=== PATIENT | female | born 1945 ===

== ENCOUNTER 2017-04-05 10:53 | Inpatient (IN) | payer MEDICARE ==
[2017-04-05] MEDS ORDERED: Insulin LISPRO* 1 UNITS UNIT SUBCUT ONE ×2 (13:10→20:50)
[2017-04-05] MEDS ORDERED: NS 0.9% 500 ML BAG* 500 ML IV ONE (13:10)
[2017-04-05] MEDS ORDERED: NS 0.9% 1000 ML* 1,000 ML IV ONE (13:13)
[2017-04-05] MEDS ORDERED: NS 0.9% 1000 ML* 1,000 ML IV SCH (13:15)
[2017-04-05] MEDS ORDERED: Azithromycin IV(*) 500 MG in NS 0.9% 250 ML* 250 ML IVPB ONE (14:03)
[2017-04-05 14:18] LABS: Troponin I 0.52 ng/mL (<0.04)
[2017-04-05 14:27] LABS: Urine Bacteria 1+ (Absent); Urine Bilirubin Negative (Negative); Urine Glucose 1+(50 mg/dL) (Negative); Urine Nitrite Negative (Negative)
[2017-04-05] MEDS ORDERED: Enoxaparin(*) 30 MG/0.3 ML SYR SUBCUT SCH (15:00)
--- NOTE | 2017-04-05 15:26 | PN ---
Hospitalist Progress Note . Hospitalist Attending Co-Note: I reviewed the following case with MEHRDAD Nicholas and agree with the Assessment and Plan of care. In brief, Ms. Romero is a 72 yo F with HTN, HL, uncontrolled DM now p/w SOB, weakness, cloudy urine, subjective fevers and hyperglycemia (glu > 500). Feel this AM at home, taken by EMS to [place], found to have grossly ABNL UA. Also, AF with RVR (new). Abnormal pulmonary exam... Transferred from to [facility] ABX: - Cipro 600 - Ceftriaxone 2 gm Also got diltiazem 5 mg IV x 1. Also received 9 units IV R-insulin. At [facility]: - Dilt gtt...better rate, less sx. - Additional 15 units insulin and increased basal dose of insulin (home= 70/30 * 50 units BID + SSI high dose) - Added Azithromycin to Abx regimen. - Troponin noted to be elevated > NSTEMI threshold (presumably supply-demand mismatch). Plan: NSTEMI: - rate related - consider stress test outpatient - trend troponins. - EKG daily Pulmonary / Pneumonia?: - Gin/CTX UTI: - CTX to cover AF with RVR: - Rate contorlled with PO dilt - ? duration - TTE ordered - SQ lovenox 1 mg/kg BID DM: - add on A1C - adjust insulin regimen; increase TDD - high dose SSI - nutritional consult FEN: - 2 L NS bolus after 1.5 L at [facility] - 125 ml/hr maintenance
[2017-04-05 15:31] LABS: C Reactive Protein 394.86 mg/L (< 5.00)
[2017-04-05] MEDS: Insulin GLARGINE(*) 1 UNITS UNIT SUBCUT SCH (15:56)
[2017-04-05] MEDS ORDERED: NS 0.9% 1000 ML* 2,000 ML IV ONE (16:00)
[2017-04-05] MEDS ORDERED: Perflutren Lipid Microsphere* 3 ML VIAL ONE (16:26)
[2017-04-05] MEDS ORDERED: Insulin LISPRO* 1 UNITS UNIT SUBCUT SCH (16:30)
--- NOTE | 2017-04-05 17:11 | ECHO ---
Patient: LENNY MONTAÑO [facility] Rec#: [id number] : 1945 Date: 04/05/2017 Age: 72y Height: 152.4 cm / 60.0 in Weight: 86.2 kg / 190.0 lbs Sex: F BSA: 1.83 Room#: ICU 7 Admit Date#: 04/05/2017 Type: Inpatient Referring: Juanita Balbuena NP Reading: Jackson Camejo MD Consumer Banker: Georgie Bustillos RN RDCS CC: Bassam Jay DO Transthoracic Echocardiogram Indication: NSTEMI, SOB BP: 91/55 HR: 93 Rhythm: NSR with PACs Findings History: HTN, DM, HLD, obesity, thyroid nodules Left Ventricle: The left ventricular chamber size is normal. Mild to moderate concentric left ventricular hypertrophy is observed. There is global hypokinesis of the left ventricle with minor regional variation. There is moderate to severely decreased left ventricular systolic function. The estimated ejection fraction is 25-30%. The assessment of diastolic function is non-diagnostic. The patient was unable to perform a Valsalva maneuver. Left Atrium: The left atrium is mildly dilated. Right Ventricle: The right ventricular cavity size is normal. The right ventricular global systolic function is mildly to moderately reduced. Right Atrium: The right atrial cavity size is normal. Aortic Valve: The aortic valve is trileaflet. The aortic valve leaflets are moderately thickened. There is aortic annular calcification. There is no evidence of aortic regurgitation. There is mild aortic stenosis. The mean gradient of the aortic valve is 4.5 mmHg. The peak instantaneous gradient of the aortic valve is 7.8 mmHg. The aortic valve area, by peak velocities, is calculated at 1.9 cm2. The aortic valve area, by VTI's, is calculated at 1.8 cm2. Mitral Valve: There is mitral annular calcification. The mitral valve leaflets are mildly thickened. There is moderate mitral regurgitation. There is no evidence of mitral stenosis. Tricuspid Valve: The tricuspid valve leaflets are normal. There is trace to mild tricuspid regurgitation. There is evidence that pulmonary hypertension may be underestimated. Pulmonic Valve: The pulmonic valve appears normal. There is a trace pulmonic regurgitation. There is no pulmonic stenosis. Pericardium: There is no significant pericardial effusion. A pericardial fat pad is visualized. Aorta: The ascending aorta is not well visualized. The aortic arch is not well visualized. There is no dilation of the aortic root. Pulmonary Artery: The main pulmonary artery appears normal. Venous: The inferior vena cava is dilated. There is a greater than 50% respiratory change in the inferior vena cava dimension. Contrast: Definity was used to optimize study. A total of 5 ml of Definity was given. Summary: There was not any prior study for comparison. Conclusions There is global hypokinesis of the left ventricle with minor regional variation. There is moderate to severely decreased left ventricular systolic function. The estimated ejection fraction is 25-30%. The assessment of diastolic function is non-diagnostic. The right ventricular global systolic function is mildly to moderately reduced. The aortic valve leaflets are moderately thickened. There is mild aortic stenosis. There is moderate mitral regurgitation. There is no evidence of mitral stenosis. There is trace to mild tricuspid regurgitation. There is evidence that pulmonary hypertension may be underestimated. There is no significant pericardial effusion. Measurements Name Value Normal Range RVDdMajor (2D) 3.8 cm (2.2 - 4.4) RAd ISD 4CH 4.7 cm (3.4 - 4.9) RA (A4C)W 4 cm (2.9 - 4.6) IVSd (2D) 1.4 cm (0.6 - 1) LVPWd (2D) 1.2 cm (0.6 - 1) IVS:LVPW ratio (2D) 1.2 ratio - LVIDd (2D) 4.9 cm (3.6 - 5.4) LVIDs (2D) 3.6 cm - LV FS (2D) 27 % (25 - 45) Aortic Annulus 2.1 cm (1.4 - 2.6) Ao root diameter (2D) 2.7 cm (2.1 - 3.5) LA dimension (AP) 2D 4.5 cm (2.3 - 3.8) LAd ISD 4CH 4.8 cm (2.9 - 5.3) LA ISD 4CH W 4.7 cm (2.5 - 4.5) Name Value Normal Range LA ESV SP 4CH (A/L) 76 ml - LA ESV SP 2CH (A/L) 59 ml - LA ESV BP (A/L) 68 ml - LA ESV BP (A/L) index 37 ml/m2 - LA ESV SP 4CH (MOD) 64 ml - LA ESV SP 2CH (MOD) 57 ml - Name Value Normal Range MV E-wave Vmax 0.56 m/sec - MV deceleration time 197 msec - MV A-wave Vmax 0.65 m/sec - MV E:A ratio 0.87 ratio - LV septal e' Vmax 0.08 m/sec - LV lateral e' Vmax 0.09 m/sec - LV E:e' septal ratio 7 ratio - LV E:e' lateral ratio 6.2 ratio - Name Value Normal Range AV Vmax 1.4 m/sec - AV VTI 29.7 cm - AV peak gradient 7.8 mmHg - AV mean gradient 4.5 mmHg - LVOT diameter 2.1 cm - LVOT Vmax 0.76 m/sec - LVOT VTI 15.1 cm - LVOT peak gradient 2.3 mmHg - LVOT mean gradient 1.3 mmHg - DOI (VTI) 0.51 ratio - DOI (Vmax) 0.54 ratio - PRIYA (continuity Vmax) 1.9 cm2 - PRIYA (continuity VTI) 1.8 cm2 - Name Value Normal Range TR Vmax 2.5 m/sec - TR peak gradient 25 mmHg - RAP 8 mmHg - RVSP 33 mmHg - IVC diameter 2.14 cm - Name Value Normal Range PV Vmax 0.57 m/sec - PV peak gradient 1.3 mmHg -
[2017-04-05 17:34] LABS: FIO2 2
[2017-04-05 17:39] LABS: PCO2 Arterial 31 mmHg (35-45)
--- NOTE | 2017-04-05 18:00 | RAD ---
Indication: Acute kidney injury. Real-time sonography of the kidneys was performed. The right kidney measures 11.9 x 4.4 x 4.5 cm. A cyst is noted in the upper pole measuring 14 x 14 x 12 mm. The left kidney measures 11.1 x 4.5 x 4.2 cm. No hydronephrosis is noted. IMPRESSION: No hydronephrosis of either kidney is noted. Right renal cyst is noted.
--- NOTE | 2017-04-05 18:31 | RAD ---
Indication: CHF, pneumonia. Single frontal view of the chest performed at 1800 hours was reviewed. Comparison is made with previous exam dated April 05, 2017. Cardiomegaly is noted. Interstitial edema with peribronchial cuffing is noted consistent with mild vascular congestion. IMPRESSION: FINDINGS CONSISTENT WITH MILD VASCULAR CONGESTION.
[2017-04-05] MEDS ORDERED: Heparin VIAL(*) 5000 UNITS/ML VIAL (FIVE THOUSAND) IV SCH (19:00)
[2017-04-05 19:13] LABS: Total Iron Binding Capacity 235 mcg/dL (250-450); Transferrin 168 mg/dL (203-362)
[2017-04-05 19:29] LABS: Iron < 15 ug/dL (50-212)
--- NOTE | 2017-04-05 19:33 | PN ---
Hospitalist Progress Note . CENTRAL LINE NOTE HOSPITALIST PROCEDURE NOTE: CENTRAL LINE Discussed case at length with Shar Balbuena NP and MEHRDAD Alexander. Indication present for central line: multiple failed phlebotomy attempts / no PICC service / urgent need for multiple IV agents Discussed with patient, who agreed and consented based on risks & benefits explained. Labs reviewed (no coagulopathy noted). Materials collected and room set up Patient positioned and target site sterilized in the usual fashion with shoulders back and head down (reverse Trendelenburg position) Completed physician-led time out reviewing patient name, procedure, indications , laterality, goals, etc. Site anesthetized with 2% lidocaine in usual fashion Larger finder needle delivered deeper lidocaine and got drawback (flash) from L subclavian vein (characteristic deep red / venous color noted) Wire inserted by Seldinger technique. Opening cut and SQ tissue dilated with dilator. Triple lumen catheter (pre-flushed) inserted over wire with low pressure blood return noted in all ports. Each port flushed and needleless adaptors applied Line sutured in usual fashion and covered with tegaderm dressing. Stat CXR ordered to r/o pneumothorax and confirm proper line placement. No complications noted at the time of this note.
[2017-04-05 19:35] LABS: Ferritin 223.4 ng/mL (11-307)
[2017-04-05 19:39] LABS: Folate > 20.00 ng/mL (>3.99); Vitamin B12 > 1450 pg/mL (180-914)
[2017-04-05] MEDS: Heparin DRIP 25,000 UNITS(*) 25,000 UNITS/500 ML BAG IV SCH (20:06)
--- NOTE | 2017-04-05 20:06 | RAD ---
Indication: Line placement verification. Single frontal view of the chest performed at 1926 hours was reviewed. Comparison is made with previous exam dated April 05, 2017. No mediastinal shift is noted. Heart is of normal size and configuration. Lung moreno appear clear. Left-sided central catheter remains in place with the tip in the superior vena cava. No pneumothorax is noted. IMPRESSION: LEFT SUBCLAVIAN VEIN CATHETER IN THE SUPERIOR VENA CAVA. NO ACTIVE DISEASE IS NOTED. NO PNEUMOTHORAX IS NOTED.
--- NOTE | 2017-04-05 20:24 | HP ---
AMENDED REPORT NOW INCLUDES COSIGNER DESIGNATION - ESIGNED BEFORE ADJUSTMENT CC: Dr. Bassam Jay * HISTORY AND PHYSICAL: DATE OF ADMISSION: PRIMARY CARE PHYSICIAN: Dr. Bassam Jay. MY ATTENDING WHILE IN THE HOSPITAL: Dr. Miles Thakur* (DICTATED BY MEHRDAD MATTHEW) CHIEF COMPLAINT: The patient was found on the floor, unable to get up. HISTORY OF PRESENT ILLNESS: Ms. Romero is a 72-year-old female with a past medical history significant for uncontrolled diabetes, type 2; hypertension; hyperlipidemia, who presents as a direct admission from [facility] where she was taken by ambulance from her home after being found conscious but unable to get up. The patient states that she has been having weakness generally without any focality for about the past 5 to 6 days. The patient states this coincides with subjective fevers that she has been having, but denies any change in her urine, difficulty breathing, or chest pain. The patient states she has been dizzy for about 7 to 8 days as well. The patient states she has been having increased swelling in her legs for about the past month. The patient denies any history of palpitations. The patient was noted to have AFib with RVR while in the emergency room at [place]. The patient denies palpitation sensation at that time. The patient states that her blood sugars have been getting progressively higher for about 2 weeks after they were low down in the 70s. They reached their high a couple of days ago at about 500. The patient denies any recent changes in her diabetic medications. The patient states this got much worse in the past 2 days and she has been unable to drink very much or eat very much and has vomited twice. The patient denies any other changes. The patient has neuropathy, which is stable. The patient denies any increase or decrease in frequency or color of her urine. ADDITIONAL PAST MEDICAL HISTORY: Osteoarthritis, incontinence, depression. PAST SURGICAL HISTORY: Hip replacement in September of this year and knee replacement about 20 years ago. MEDICATIONS: 1. Omeprazole 20 mg p.o. daily. 2. Amlodipine 10 mg p.o. daily. 3. Lipitor 40 mg p.o. daily. 4. Meloxicam 15 mg p.o. daily. 5. Lisinopril 40 mg p.o. daily. 6. Insulin lispro protamine 75/25, 50 units b.i.d. 7. Gemfibrozil 600 mg p.o. daily. ALLERGIES: No known drug allergies. FAMILY HISTORY: The patient has a brother with a history of stroke and diabetes. The patient states that the whole rest of her family has diabetes including all of her siblings and both her parents and a couple of her grandparents. The patient denies any family history for cardiac disease or cancer. SOCIAL HISTORY: The patient states she has never smoked. Rarely drinks alcohol. Uses no illicit drugs. Lives with her , has 4 kids. Used to work in daycare. PHYSICAL EXAMINATION GENERAL: The patient is a 72-year-old female who appears her stated age, is sitting in moderate distress, having difficulty breathing on the bed in the Intensive Care Unit. VITAL SIGNS: Upon arrival to hospital, temperature 99.1; heart rate 119 when she arrived, 89 at the time of exam, respiratory rate 24; oxygen saturation 96% on 2 L nasal cannula; blood pressure is 72/59. HEENT: Head: Normocephalic, atraumatic. No sinus tenderness. Sclerae anicteric. Pharynx nonerythematous. Lips and mucosa are dry. NECK: Supple. No Lymphadenopathy. Tenderness to palpation over thyroid RESPIRATORY: Rhonchorous breath sounds heard in all lung moreno. Good air exchange bilaterally. Egophony negative. CARDIAC: Irregularly irregular rhythm. Rates between 80 and 100. No clicks, murmurs, gallops, or rubs. Radial pulses 2+ bilaterally. Posterior tibialis and dorsalis pedis pulses 2+ bilaterally. No edema. ABDOMEN: Bowel sounds hypoactive in all 4 quadrants. Nontender, nondistended, obese. No abdominal bruits heard. No hepatosplenomegaly palpated. Exam limited by body habitus. GENITOURINARY: CVA tenderness on right side. No suprapubic tenderness. NEURO: Cranial nerves II through XII intact. 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 Distal strength in the legs, 5/5 bilaterally. SKIN: Warm, pink, intact. DIAGNOSTIC STUDIES/LAB DATA: Lab results from [facility], white blood cell count 9.8, hemoglobin 10.8, hematocrit 31.4, platelets 80, 91% granulocytes , neutrophils 94%, 13 bands. PT/INR 9.6/10.4. Troponin 0.626. Creatinine 7.5 , BUN 83. Lactic acid 2.8. BNP 466. Urine from [facility], protein +3 , blood +2, leukocyte esterase +3, bacteria +4. Troponin repeat at [facility] down to 0.52. Repeat urine from [facility] consistent with urine at [place]. Glucose 400. Chest x-ray: Read as cardiomegaly with no acute cardiopulmonary disease. Cephalization of pulmonary vasculature noted upon review. IMPRESSION AND PLAN: The patient is a 72-year-old female with past medical history significant for diabetes, hypertension, and hyperlipidemia, who comes in with sepsis from urinary tract infection, or possible pneumonia, new onset Afib and uncontrolled diabetes. 1. Sepsis, Urinary tract infection. The patient received 600 mg of ciprofloxacin and 2 g of Rocephin at [facility]. We will discontinue ciprofloxacin and continue Rocephin 2 g q.24 hours. We will give 2 L of normal saline with maintenance fluids afterwards at 125 mL an hour. We will monitor lactic acid after bolus infusion is complete. We will hold lisinopril and amlodipine at this time due to hypotension. 2. Rhonchi, possible pneumonia. We will add on azithromycin 500 mg IV today and 250 mg daily to cover for community-acquired pneumonia. Ceftriaxone will also cover for this. We will also order CRP. 3. New-onset atrial fibrillation. The patient's rate is currently controlled. The patient received diltiazem drip protocol when she arrived and her pulse rate has not gone back above 100. Will start on heparin drip. The patient is not stable enough for transesophageal echocardiogram. The duration of the atrial fibrillation is unknown, so there is a significant risk for mural thrombus. 4. Diabetes. Gave the patient 15 units lispro insulin one time, now we will start on glargine 40 units subcutaneous q.12 hours and a high-dose sliding scale and we will reassess for control of blood sugars. 5. Hypertension. Hypertensive medications held until hypotension resolves. 6. Hyperlipidemia. We will continue home Lipitor and gemfibrozil. 7. Gastroesophageal reflux disease. Continue omeprazole home dose. 8. Deep vein thrombosis prophylaxis. Heparin Drip initiated. SCDs on while in bed 9. Fluids, electrolytes, and nutrition. Consistent carbohydrate diet. Fluids at 125ml/hr 10. Code status. Full code. Healthcare proxy is her , Enoch Romero. DISPOSITION: The patient is admitted to the ICU. TIME SPENT: Approximately 60 minutes was spent on this admission, half 30 minutes of which was spent obtaining history and physical from the patient. This case was discussed with my attending, Dr. Thakur; he is in agreement with this plan. MEHRDAD MATTHEW [id number]/CPS #: [id number] RUBI
[2017-04-05] MEDS ORDERED: Dextrose 50% Syringe 50 ML* 25 GM/50 ML SYRINGE IV PUSH PRN (20:27)
[2017-04-05] MEDS: Insulin LISPRO* 1 UNITS UNIT SUBCUT SCH (20:30)
--- NOTE | 2017-04-05 21:01 | PN ---
Progress Note - Progress Note Date of Service: 04/05/17 Note: Transthoracic Echocardiogram completed and reveals a EF of 25-30%. Patient had already received 3.5L of NS and repeat CXR reveals increased pulmonary congestion. Blood Pressures remain low. Dr Thakur and Dr Pittman consulted and per their recommendations a central line was placed and the maintenance fluid rate was increased to 200ml/hr from 125ml/hr for blood pressure support and kidney perfusion. O2 flow was also increased to 10L to provide positive pressure and help with pulmonary edema. Patient's urine output remains minimal. Patient made NPO except for ice chips. Insulin sliding scale changed to Q4H. Will give Levophed for BP support if needed.
--- NOTE | 2017-04-05 21:32 | PN ---
Progress Note - Progress Note Date of Service: 04/05/17 Note: Call from [facility]. Spoke to Gila - positive blood cultures all four bottles. Gram negative rods. Already on rocephin.
[2017-04-05] MEDS: Gemfibrozil TAB* 600 MG PO SCH (21:40)
[2017-04-05] MEDS: Atorvastatin* 40 MG TAB PO SCH (21:40)
[2017-04-05] MEDS: NS 0.9% 1000 ML* 1,000 ML IV SCH (22:02)
[2017-04-06] MEDS: Insulin LISPRO* 1 UNITS UNIT SUBCUT SCH ×6 (00:45→21:40)
[2017-04-06] MEDS: NS 0.9% 1000 ML* 1,000 ML IV SCH ×3 (03:00→14:18)
[2017-04-06] MEDS: Insulin GLARGINE(*) 1 UNITS UNIT SUBCUT SCH ×2 (04:24→15:07)
[2017-04-06] MEDS: Omeprazole CAP* 20 MG PO SCH (05:58)
[2017-04-06 06:28] LABS: Add Diff/Slide Review? Manual Diff Added; Comments Flag Yes; Hematocrit 26 % (35-47); Hemoglobin 8.9 g/dl (12.0-16.0); Mean Corpuscular HGB Conc 34 g/dl (31-36); Mean Corpuscular Hemoglobin 31 pg (27-31); Mean Corpuscular Volume 91 fL (80-97); Mean Platelet Volume 10 um3 (7.4-10.4); Red Blood Count 2.85 10^6/ul (4.0-5.4); Red Cell Distribution Width 16 % (10.5-15); White Blood Count 8.2 10^3/ul (3.5-10.8)
[2017-04-06 06:37] LABS: Albumin 2.7 g/dL (3.2-5.2); BUN/Creatinine Ratio 22.3 (8-20); Calcium 7.8 mg/dL (8.6-10.3); EGFR African American 14.9 (>60); EGFR Non-African American 11.6 (>60); Globulin 3.3 g/dL (2-4); Total Bilirubin 0.7 mg/dL (0.2-1.0)
[2017-04-06 06:48] LABS: Immature Granulocytes 20 % (0-9); Neutrophil % 70 % (38-83)
[2017-04-06 06:49] LABS: RBC Morphology Normal (Normal)
[2017-04-06] MEDS ORDERED: Insulin LISPRO* 1 UNITS UNIT SUBCUT SCH (07:30)
[2017-04-06] MEDS: Gemfibrozil TAB* 600 MG PO SCH (08:23)
[2017-04-06] MEDS ORDERED: amLODIPine TAB* 5 MG PO SCH (09:00)
[2017-04-06] MEDS ORDERED: Lisinopril TAB* 10 MG PO SCH (09:00)
[2017-04-06] MEDS ORDERED: Digoxin IV* 0.5 MG/2 ML AMP (0.25 MG/ML) IV SLOW PU ONE (10:43)
--- NOTE | 2017-04-06 11:09 | PN ---
Progress Note - Progress Note Date of Service: 04/06/17 Note: CRITICAL CARE MEDICINE Date: 04/06/17 Time: 945 SUBJECTIVE: Patient seen and examined. Family at bedside. PHYSICAL EXAM: appears elderly and ill Vital Signs: Reviewed. Neurologic: awake, communicating. HEENT: pupils equal. Sclera anicteric. Trachea midline. false teeth Cardiovascular: irr irr, distant, S1 S2, 2/6 GA of MR Respiratory: dec bl and mild crackles bl Abdomen: Soft, nt, obese; No r/g/r. Extremities: Warm; dep edema Access: left subcl intact; piv LABS: Reviewed. IMAGING: Reviewed. MEDICATIONS: Reviewed. ASSESSMENT: 72 F Severe sepsis sec to uti - tx for cap at this point with gram neg in Acute hypoxic resp failure Acute decompensated systolic heart failure ?3 vessel disease Acute renal failure with component of atn Uncontrolled DM PLAN: Neurologic: communicating, denies pain, but would be worry from tiring. Cardiovascular: perfusing but still with high demand. afib not helping. give a dose of dig. would rather see her in sr but unclear how long she has been in PAF. 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 No acute coronary interventions, but ask cards to eval for longer term plans +/ - and reversibility. Respiratory: tolerating, but rapid and shallow and worry for ali component +/- some primary, with microatelectasis at least and ongoing demand. start HFO2 with dec FiO2; dec atelectasis and dec wob. metaneb. nebs prn. Gastrointestinal: soft diet today. Renal/Metabolic: sharon sec to original pre-renal leading to atn component, but also with decompensated HF with cardiorenal concern. check ck as on statin and fibrate, but ast ok so doubt rhabdo. US ok. f/u with good perfusion and avoid nephrotoxins. Infectious Disease: on C3. can dc azithro. f/u cx Hematology: stable. placed on hsq with nstemi and afib. has consumptive coagulopathy of sepsis ongoing. can treat with heparin for 48hrs for nstemi, although certainly seeming more demand related. longer term needs perhaps. f/u plt tomorrow. Endocrine: lantus and ssi for uncontrolled dm and f/u. Musculoskeletal: bedrest today Psych/Social: family at bedside updated. Supportive and preventative care as ordered. SUP: po VTE prophylaxis: on heparin Disposition: ICU; critically ill Code Status: Full Critical Care Time: 55min Kelley Pittman DO
[2017-04-06] MEDS: Aspirin EC Low Dose* 81 MG TAB.EC PO SCH (12:51)
[2017-04-06] MEDS ORDERED: Amiodarone 150 MG IVPREMIX* 150 MG/100 ML BAG IV ONE (14:05)
[2017-04-06] MEDS ORDERED: NS 0.9% 1000 ML* 1,000 ML IV SCH (14:37)
[2017-04-06] MEDS ORDERED: Azithromycin TAB* 250 MG PO SCH (15:00)
[2017-04-06] MEDS ORDERED: Azithromycin IV(*) 250 MG in NS 0.9% 250 ML* 250 ML IVPB SCH (15:00)
[2017-04-06] MEDS: Amiodarone TAB* 400 MG PO SCH ×2 (15:07→21:42)
[2017-04-06] MEDS: Albuterol/Ipratropium NEB.SOL* Albuterol 2.5 MG/Ipratropium 0.5 MG 3 ML INH PRN (16:04)
--- NOTE | 2017-04-06 17:22 | CONS ---
CC: Hospitalist Service; Dr. Jan Collins; Ana Mitchell DO * CARDIOLOGY CONSULTATION: DATE OF CONSULT: 04/06/17 REASON FOR CONSULTATION: Cardiomyopathy. HISTORY OF PRESENT ILLNESS: Ms. Romero is a 72-year-old woman who presented to the hospital with cough where she says she has been having a worsening cough , but was very vague. Admission notes documented she was transferred from [place] after being found weak, on the floor and unable to get up, and she had been weak for approximately a week prior to admission. The patient tells me that she has not felt well for about a year with cough, increased swelling of the abdomen and lower extremities. On admission, the patient has been found going in and out of atrial fibrillation and an echocardiogram yesterday showed a significant cardiomyopathy. Blood cultures have come back positive for E. coli. The patient denies any awareness of palpitations or racing of the heart. She denies any history of chest pain, pressure, or heaviness. The patient admits to orthopnea. PAST MEDICAL HISTORY: The patient has a past medical history of type 2 diabetes , thyroid nodules undergoing workup with Dr. Collins (nontoxic multinodular goiter) , dyslipidemia, hypertension, obesity, reflux, degenerative arthritis, and renal insufficiency, overflow incontinence. PAST SURGICAL HISTORY: Includes hip replacement in September of this year. She had biopsy of mediastinal mass in 2005 and right knee arthroplasty in 2001 and she has had her left knee replaced as well, hysterectomy only for uterine bleeding in 1988 and tubal ligation in 1977. MEDICATIONS: Current inpatient medications include: 1. Albuterol nebulizers. 2. Aspirin 81 mg a day. 3. Lipitor 40 mg a day. 4. Ceftriaxone intravenous. 5. Heparin drip. 6. Glargine insulin. 7. Humalog insulin. 8. Prilosec 20 mg a day. 9. Normal saline. ALLERGIES: She has no known medical allergies. FAMILY HISTORY: Significant for she has 2 brothers with stroke and she said her mother had a history of angina and " from angina." SOCIAL HISTORY: The patient is retired from daycare. Never drank alcohol. No recreational drug use. No history of increased caffeine use. REVIEW OF SYSTEMS: Hard to obtain because she is a vague historian, but see history of present illness where she has not felt well for a year, has had progressive swelling of the feet and abdomen, and history of orthopnea and coughing. Negative for chest pain, pressure, heaviness, or palpitations. She denies any history of fevers, chills, or sweats. No trouble urinating, does not recall diarrhea or constipation. No headaches or earaches. All other 14- point review of systems is unremarkable. PHYSICAL EXAM: The patient is 5 feet and weighs 212 pounds with a BMI of 42. Blood pressure on admission on 04/05/17 was 72/59, pulse ranging 90 to 124 beats a minute. Today, she is in currently sinus rhythm 80s to AFib 115 with a blood pressure of 103/57, oxygen saturation 98% with oxygen replacement face mask and temperature 98.6. T-max over the last 24 hours was 101.2 at midnight. General appearance: Obese, older woman lying at 30 degrees, appears chronically ill and acutely ill. Psychologically pleasant and cooperative. Neurologically vague historian, awake, alert, and oriented to person and she knows she is in the hospital. I did not do formal neurological examination, but the speech is articulate. Comprehension seems good. Slow and vague to respond. She moves extremities well and follows commands. HEENT: Pupils are equal and round. Mucous membranes were moist. Neck: Obese without obvious increase in JVP. Palpable carotid pulses without bruits. Breath sound show loud coarse rhonchi. She is chronically intermittently coughing. Coronary: S1 , S2. Irregularly irregular without murmurs or rubs appreciated. Room is loud with fans and oxygen blowing. Abdomen: Very overweight, distended, active bowel sounds, and pulsatile liver that is enlarged on manual exam and lower extremities are thickened, sequential compression stockings are on with nominal edema. DIAGNOSTIC STUDIES/LAB DATA: The patient's ECG on arrival on 04/05/17, shows sinus rhythm alternating with bursts of SVT, QRS axis of 0, normal intraventricular and normal AV conduction times. ST segments unremarkable. Echocardiogram from 04/05/17 reported as an ejection fraction of 25% to 30%. The right ventricle was hypokinetic. Aortic valve sclerosis with mild stenosis , moderate mitral insufficiency, mild tricuspid insufficiency. PA pressure likely under-estimated at 33 mmHg. Chest x-ray from 04/05/17 showed mild vascular congestion and repeat chest x- ray from 04/05/17 post central line unchanged. Labs from today white count 8.2, hemoglobin 8.9, hematocrit 26, and platelets 64. Sodium 136, potassium 4.0, chloride 108, bicarb 20, BUN 85, creatinine 3.82 , glucose 162, hemoglobin A1c 8.5, AST is 36, ALT 13, total protein 6, albumin 2.7. From 04/05/17 blood gas shows pH 7.38, pCO2 31, pO2 89, oxygen saturation 97.8% on 2 L nasal cannula. Troponin #1 0.52, troponin #2 0.45. PTT 67.6. Urinalysis, 3+ protein, 1+ blood , nitrite negative, esterase 2+, white cells 3+, 1+ bacteria, 1+ glucose. No urine in this facility. IMPRESSION: In summary, Ms. Angelica Romero is a 72-year-old woman admitted with E. coli sepsis with profound weakness for almost a week. She has an additional problem list of: 1. Renal insufficiency-severe, acute and chronic. 2. Paroxysmal atrial fibrillation. 3. Cardiomyopathy. 4. Congestive heart failure. In addition to her longstanding diabetes, hypertension, dyslipidemia, and morbid obesity. For the patient's AFib, as I was talking to her, she was going in and out of the atrial fibrillation. Although we do not know how long she has had this problem, as she is going in and out, I recommend initiation of an antiarrhythmic. The safest arrhythmic in the setting of her severe cardiomyopathy and renal insufficiency would be amiodarone. I would continue heparin. If her platelets continue to drop, a NOAC could be problematic her renal insufficiency, but Coumadin could be initiated. For the patient's cardiomyopathy, as she has been septic and hypotensive, she is not a candidate for beta blockers now and she may never be a candidate for PILAR inhibitors or ARBs with her creatinine. long term care phlebotomist, she may benefit from Toprol or Coreg and she may need diuretics, and if diuretics are needed, I do not feel, with her renal insufficiency, she would be a good candidate for Aldactone. The etiology of the cardiomyopathy has a large differential in this woman's case , it could be related to sepsis, it could be related to AFib and with a tachycardic response and it could be related to her longstanding diabetes and/ or hypertension and it could be related to underlying arthrosclerotic disease as she has a very high risk factor profile. While she is septic and hypotensive , she is not a candidate for a stress test or a cath. Once stabilized, we would then need to initiate cardiac ischemic workup. If her kidney function does not improve with stabilization of her sepsis and dysrhythmia, then a heart catheterization has increased risks and we would need to weigh the risk, benefit of a heart catheterization, which I feel would be the optimal study with the potential benefits. In the interim, I would treat her as if she has extensive arthrosclerotic disease of the heart. I would continue with statins for her dyslipidemia and be aggressive with rhythm and rate control for her atrial fibrillation. Other thoughts include the discrepancy between her albumin and total protein, which raises the possibility of a paraprotein. You may want to consider an SPEP or UPEP nonurgently. The patient is at high risk for developing congestive heart failure, so I would monitor In's and Out's and weights carefully and back off on intravenous fluid as soon as we are able. On determining the source of the sepsis whether urine or other, it is going to be important as well in terms of long-term stabilization. I did review the echocardiogram myself and did not appreciate evidence of vegetations, although transthoracic echo is not as sensitive or specific for endocarditis as a transesophageal echo. We will follow up closely with you. [id number]/[facility] #: [id number] RUBI
[2017-04-06] MEDS: Heparin DRIP 25,000 UNITS(*) 25,000 UNITS/500 ML BAG IV SCH (20:50)
[2017-04-06] MEDS: Atorvastatin* 40 MG TAB PO SCH (21:42)
[2017-04-07] MEDS: Insulin LISPRO* 1 UNITS UNIT SUBCUT SCH ×5 (00:25→21:21)
[2017-04-07] MEDS: Insulin GLARGINE(*) 1 UNITS UNIT SUBCUT SCH ×3 (05:35→21:20)
[2017-04-07] MEDS: Omeprazole CAP* 20 MG PO SCH (05:46)
[2017-04-07 05:52] LABS: Hematocrit 26 % (35-47); Hemoglobin 8.9 g/dl (12.0-16.0); Mean Corpuscular HGB Conc 34 g/dl (31-36); Mean Corpuscular Hemoglobin 31 pg (27-31); Mean Corpuscular Volume 91 fL (80-97); Mean Platelet Volume 10 um3 (7.4-10.4); Red Cell Distribution Width 16 % (10.5-15); White Blood Count 8.5 10^3/ul (3.5-10.8)
[2017-04-07 05:53] LABS: Add Diff/Slide Review? Slide Review Added; Comments Flag Yes
[2017-04-07 06:07] LABS: Calcium 7.8 mg/dL (8.6-10.3); EGFR Non-African American 10.8 (>60); Magnesium 1.6 mg/dL (1.9-2.7); Potassium 4.1 mmol/L (3.5-5.0)
[2017-04-07 06:23] LABS: Hypochromasia 1+; Immature Granulocytes 21 % (0-9); Macrocytosis 1+; Metamyelocytes % 2 % (0-2); Microcytosis 1+; Neutrophil % 64 % (38-83)
[2017-04-07] MEDS: Amiodarone TAB* 400 MG PO SCH ×2 (09:19→21:22)
[2017-04-07] MEDS: Aspirin EC Low Dose* 81 MG TAB.EC PO SCH (09:21)
--- NOTE | 2017-04-07 11:31 | PN ---
Progress Note - Progress Note Date of Service: 04/07/17 Note: CRITICAL CARE MEDICINE Date: 04/07/17 Time: 925 SUBJECTIVE: Patient seen and examined. PHYSICAL EXAM: Vital Signs: Reviewed. NSR this am. Neurologic: awake, communicating. HEENT: pupils equal. Sclera anicteric. Trachea midline. false teeth Cardiovascular: reg, distant, S1 S2, 2/6 GA Respiratory: dec bl but clearer Abdomen: Soft, nt, obese; No r/g/r. Extremities: Warm; dep edema ok Access: left subcl intact; piv LABS: Reviewed. IMAGING: Reviewed. MEDICATIONS: Reviewed. ASSESSMENT: 72 F Severe sepsis sec to esbl uti Acute hypoxic resp failure - improved Acute decompensated systolic heart failure with acute pulm edema - improved. New onset Afib CAD Acute renal failure with component of atn - stabilizing Uncontrolled DM -stable PLAN: Neurologic: communicating; better energy Cardiovascular: perfusing. Better with NSR now. on amio po bid and can leave for now until re-eval cardiac dynamics/echo next week. off ivf. see how she can mobilize with renal recovery. May likely end up being diuretic dependent but can wait for better renal recovery. Respiratory: tolerating and can wean off HFO2 today. is, fluttter, oob. Gastrointestinal: advance diet today. Renal/Metabolic: sharon stabilizing. Uout up. no surprive Cr going to remain up at the moment. f/u clearance and ultimate diuretic needs. Infectious Disease: on zosyn now for esbl; extended course. Hematology: stable. heparin gtt currently until needs better suited for senior care anticoag needs and cardiac workup. follow for plt recovery. Endocrine: lantus and ssi Musculoskeletal: oob today; Pt Psych/Social: family at bedside updated. Supportive and preventative care as ordered. SUP: po VTE prophylaxis: on heparin Disposition: ICU Code Status: Full Critical Care Time: 35min Kelley Pittman DO
[2017-04-07] MEDS ORDERED: Magnesium Sulfate 2 GM IV* 2 GM/50 ML BAG IVPB ONE (11:34)
[2017-04-07] MEDS ORDERED: NS 0.9% 1000 ML* 1,000 ML IV SCH (11:45)
[2017-04-07] MEDS ORDERED: Zosyn per Pharmacy* NOTE FOLLOW UP SCH (12:00)
[2017-04-07] MEDS: ZOSYN 3.375 GM Q12H per EXTENDED INFUSION IVPB SCH ×2 (18:39)
[2017-04-07] MEDS: Atorvastatin* 40 MG TAB PO SCH (21:22)
[2017-04-08 04:37] LABS: Hematocrit 26 % (35-47); Hemoglobin 8.7 g/dl (12.0-16.0); Mean Corpuscular HGB Conc 34 g/dl (31-36); Mean Corpuscular Hemoglobin 31 pg (27-31); Mean Corpuscular Volume 92 fL (80-97); Mean Platelet Volume 9 um3 (7.4-10.4); Red Blood Count 2.84 10^6/ul (4.0-5.4); Red Cell Distribution Width 16 % (10.5-15); White Blood Count 10.8 10^3/ul (3.5-10.8)
[2017-04-08 04:38] LABS: Add Diff/Slide Review? Slide Review Added; Comments Flag Yes
[2017-04-08 04:52] LABS: BUN/Creatinine Ratio 19.3 (8-20); Calcium 7.8 mg/dL (8.6-10.3); EGFR Non-African American 9.3 (>60); Magnesium 2.1 mg/dL (1.9-2.7); Phosphorus 4.6 mg/dL (2.5-5.0); Potassium 3.9 mmol/L (3.5-5.0)
[2017-04-08] MEDS: ZOSYN 3.375 GM Q12H per EXTENDED INFUSION IVPB SCH ×4 (05:55→18:27)
[2017-04-08] MEDS: Omeprazole CAP* 20 MG PO SCH (05:56)
[2017-04-08] MEDS: Aspirin EC Low Dose* 81 MG TAB.EC PO SCH (08:00)
[2017-04-08] MEDS: Insulin LISPRO* 1 UNITS UNIT SUBCUT SCH ×4 (08:00→21:31)
[2017-04-08] MEDS: Amiodarone TAB* 400 MG PO SCH (08:00)
[2017-04-08] MEDS: Heparin DRIP 25,000 UNITS(*) 25,000 UNITS/500 ML BAG IV SCH (08:01)
[2017-04-08] MEDS: Insulin GLARGINE(*) 1 UNITS UNIT SUBCUT SCH ×2 (08:02→21:31)
[2017-04-08] MEDS ORDERED: Furosemide IV* 10 MG/ML VIAL (40 MG) IV SLOW PU ONE (11:00)
--- NOTE | 2017-04-08 11:54 | PN ---
Progress Note - Progress Note Date of Service: 04/08/17 Note: CRITICAL CARE MEDICINE Date: 04/08/17 Time: 1000 SUBJECTIVE: Patient seen and examined. PHYSICAL EXAM: Vital Signs: Reviewed. NSR Neurologic: awake, communicating. HEENT: pupils equal. Sclera anicteric. Trachea midline. Cardiovascular: reg, distant, S1 S2, 2/6 GA Respiratory: dec but clear Abdomen: Soft, nt, obese Extremities: Warm; dep edema Access: left subcl intact LABS: Reviewed. IMAGING: Reviewed. MEDICATIONS: Reviewed. ASSESSMENT: 72 F Severe sepsis sec to esbl uti Acute hypoxic resp failure - improved Acute decompensated systolic heart failure with acute pulm edema - improved. Afib post sepsis CAD Acute renal failure with component of atn - stabilizing Uncontrolled DM - stable PLAN: Neurologic: communicating Cardiovascular: perfusing. NSR. d/w cards and will adjust regimen. of amio. dc heparin gtt. f/u echo next week. Respiratory: tolerating and can wean O2 further. is, flutter, oob. Gastrointestinal: po Renal/Metabolic: sharon non-oliguric but not reaching diuertic phase. trial diuretic dose today otherwise needing to wait out. Explained to pt potential nephro eval heading into next week while watching slow recovery, especially if diuretics ineffective. Infectious Disease: zosyn for esbl Hematology: stable. heparin subq; plt ok. Endocrine: lantus and ssi Musculoskeletal: oob today; Pt Psych/Social: pt expressed understanding. Supportive and preventative care as ordered. SUP: po VTE prophylaxis: on heparin Disposition: ICU today, and hopefully floor soon when truly turning the corner Code Status: Full Critical Care Time: 30min FFrances Pittman DO
[2017-04-08] MEDS: Isosorbide Dinitrate TAB* 10 MG PO SCH ×2 (13:12→21:32)
[2017-04-08] MEDS: Carvedilol TAB* 6.25 MG PO SCH ×2 (13:12→21:32)
[2017-04-08] MEDS: hydrALAZINE TAB* 10 MG PO SCH ×2 (13:12→21:32)
[2017-04-08] MEDS: Heparin VIAL(*) 5000 UNITS/ML VIAL (FIVE THOUSAND) SUBCUT SCH (13:13)
--- NOTE | 2017-04-08 14:00 | PN ---
Subjective Date of Service: 04/08/17 Interval History: f/u cardiomyopathy, Pafib No further afib some dyspnea from bed to chair no chest pain or lightheadedness Medications Active Medications: Albuterol/Ipratropium (Duoneb (Albuterol 2.5 Mg/Ipratropium 0.5 Mg)) 1 neb INH Q4H PRN PRN Reason: SOB/WHEEZING Last Admin: 04/06/17 16:04 Dose: 1 neb Aspirin (Aspirin Ec Low Dose*) 81 mg PO DAILY [facility] Last Admin: 04/08/17 08:00 Dose: 81 mg Atorvastatin Calcium (Lipitor*) 40 mg PO 2100 [facility] Last Admin: 04/07/17 21:22 Dose: 40 mg Carvedilol (Coreg Tab*) 6.25 mg PO BID [facility] Last Admin: 04/08/17 13:12 Dose: 6.25 mg Dextrose (D50w Syringe 50 Ml*) 12.5 gm IV PUSH .FOR FS < 60 - SS PRN PRN Reason: FS < 60 Heparin Sodium (Porcine) (Heparin Vial(*)) 5,000 units SUBCUT Q8HR [facility] Last Admin: 04/08/17 13:13 Dose: 5,000 units Hydralazine HCl (Apresoline Tab*) 10 mg PO TID [facility] Last Admin: 04/08/17 13:12 Dose: 10 mg Sodium Chloride (Ns 0.9% 1000 Ml*) 1,000 mls @ 0 mls/hr IV KVO KIA PRN Reason: KVO Piperacillin Sod/Tazobactam (Sod 3.375 gm/ Sodium Chloride) 100 mls @ 25 mls/ hr IVPB Q12H [facility] Last Admin: 04/08/17 05:55 Dose: 25 mls/hr Insulin Glargine (Lantus(*)) 40 units SUBCUT Q12HR [facility] Last Admin: 04/08/17 08:02 Dose: 40 unit Insulin Human Lispro (Humalog*) 0 units SUBCUT ACHS [facility] PRN Reason: Protocol Last Admin: 04/08/17 11:33 Dose: 3 unit Isosorbide Dinitrate (Isordil Tab*) 10 mg PO TID [facility] Last Admin: 04/08/17 13:12 Dose: 10 mg Omeprazole (Prilosec Cap*) 20 mg PO 0600 [facility] Last Admin: 04/08/17 05:56 Dose: 20 mg Pharmacy Consult (Zosyn Per Pharmacy*) 1 note FOLLOW UP .ZOSYN PER PHARMACY [facility] Objective Vital Signs: Temp Pulse Resp BP Pulse Ox 96.9 F 65 22 128/56 97 04/08/17 11:59 04/08/17 13:01 04/08/17 13:01 04/08/17 13:01 04/08/17 13:01 Appearance: nad, pleasant, obese Neck: Trachea Midline, - - uncertain jvp Respiratory: Symmetrical Chest Expansion and Respiratory Effort, - - faint crackles bases Cardiovascular: RRR, - - no significant murmur Extremities: No Clubbing, Cyanosis Skin: No Rash or Ulcers Neurological: Alert and Oriented x 3 Laboratory Results: 04/08/17 04:25 04/08/17 04:25 APTT 51.7 seconds (26.0-36.3) H 04/08/17 07:04 Total Bilirubin 0.70 mg/dL (0.2-1.0) 04/06/17 06:00 AST 36 U/L (13-39) 04/06/17 06:00 ALT 13 U/L (7-52) 04/06/17 06:00 Alkaline Phosphatase 60 U/L (34-104) 04/06/17 06:00 Total Protein 6.0 g/dL (6.4-8.9) L 04/06/17 06:00 Albumin 2.7 g/dL (3.2-5.2) L 04/06/17 06:00 Globulin 3.3 g/dL (2-4) 04/06/17 06:00 Albumin/Globulin Ratio 0.8 (1-3) L 04/06/17 06:00 04/05/17 04/05/17 13:15 16:45 Troponin I 0.52 H* 0.45 H* Assessment/Plan Ms. Romero is a 72-year-old woman with type 2 DM, obesity, HTN, dyslipidemia, mild renal insufficiency at baseline, admitted with E. coli sepsis and found with acute renal failure and early paroxysmal afib in the setting of sepsis now maintained sinus rhythm after amiodarone, LVEf 25-30% in the setting of sepsis and Afib. - Stop amiodarone (ordered), Afib likely sepsis mediated will hold on anti- coagulation for now can be re-considered if reverts back to atrial fibrillation - Continue aspirin and statin - Renal function too bad for Sadi/ARB currently, will add low dose hydralazine 10 mg/isosorbide 10 mg PO TID (ordered) can uptitrate as tolerated - Will add coreg 6.25 mg PO BID (ordered), can uptitrate as tolerated - Volume status per Primary service - Will check limited TTE (ordered) in several days to re-evaluate LVEF with sikhism of sinus rhythm and improvement of sepsis may significantly improve - Repeat EKG (ordered) - Consider ischemic evaluation at some point pending above and clinical course Thank you for allowing me to participate in the cardiovascular care of this patient. Please do not hesitate to contact me with questions or concerns
[2017-04-08] MEDS: Atorvastatin* 40 MG TAB PO SCH (21:32)
[2017-04-09] MEDS: Heparin VIAL(*) 5000 UNITS/ML VIAL (FIVE THOUSAND) SUBCUT SCH ×3 (02:25→18:14)
[2017-04-09] MEDS ORDERED: NS 0.9% 500 ML BAG* 500 ML IV ONE (02:43)
[2017-04-09] MEDS: ZOSYN 3.375 GM Q12H per EXTENDED INFUSION IVPB SCH ×4 (06:35→18:14)
[2017-04-09] MEDS: Omeprazole CAP* 20 MG PO SCH (06:35)
[2017-04-09 07:34] LABS: BUN/Creatinine Ratio 19.6 (8-20); Calcium 7.7 mg/dL (8.6-10.3); EGFR African American 10.5 (>60); EGFR Non-African American 8.2 (>60); Potassium 4.3 mmol/L (3.5-5.0)
[2017-04-09] MEDS: Insulin LISPRO* 1 UNITS UNIT SUBCUT SCH ×4 (08:41→20:22)
[2017-04-09] MEDS: Isosorbide Dinitrate TAB* 10 MG PO SCH (08:42)
[2017-04-09] MEDS: Insulin GLARGINE(*) 1 UNITS UNIT SUBCUT SCH ×2 (08:42→20:23)
[2017-04-09] MEDS: Aspirin EC Low Dose* 81 MG TAB.EC PO SCH (08:42)
[2017-04-09] MEDS: hydrALAZINE TAB* 10 MG PO SCH (09:45)
[2017-04-09] MEDS: Carvedilol TAB* 6.25 MG PO SCH (09:45)
[2017-04-09] MEDS ORDERED: DOPamine 200 MG/250 ML IVPREM* 200 MG in PREMIX* 0 ML IV SCH (10:00)
--- NOTE | 2017-04-09 10:32 | PN ---
Progress Note - Progress Note Date of Service: 04/09/17 Note: CRITICAL CARE MEDICINE Date: 04/09/17 Time: 945 SUBJECTIVE: Patient seen and examined. PHYSICAL EXAM: Vital Signs: Reviewed. NSR Neurologic: awake, communicating. HEENT: pupils equal. Sclera anicteric. Trachea midline. Cardiovascular: reg, distant, S1 S2, 2/6 GA Respiratory: dec but clear Abdomen: Soft, nt, obese Extremities: Warm; dep edema Access: left subcl intact LABS: Reviewed. IMAGING: Reviewed. MEDICATIONS: Reviewed. ASSESSMENT: 72 F Severe sepsis sec to esbl uti Acute hypoxic resp failure - improved Acute decompensated systolic heart failure with acute pulm edema - improved. Afib post sepsis CAD Acute renal failure with component of atn - stabilizing Uncontrolled DM - stable PLAN: Neurologic: communicating Cardiovascular: perfusing. NSR. bp dipped overnight with rx. need to hold afterload reduction agents today. as off amio, will try to keep lower dose bb today but Hr into 50s already. For what it is worth, need to allow renal function recovery time and going to try and argument with dopamine trial today. repeat echo next week. Respiratory: off o2 Gastrointestinal: po Renal/Metabolic: sharon non-oliguric but clearance still poor and not reaching diuretic phase. no diuretics today. trial dopamine. time. we did discuss potential needs for HD if course continues as is but would still wait a bit longer at present. Infectious Disease: zosyn for esbl Hematology: stable. heparin subq; plt ok. Endocrine: lantus and ssi Musculoskeletal: oob today; ambulate. Pt Psych/Social: pt expressed understanding. Supportive and preventative care as ordered. SUP: po VTE prophylaxis: on heparin Disposition: ICU Code Status: Full Critical Care Time: 30min Kelley Pittman DO
[2017-04-09] MEDS: DOPamine 200 MG/250 ML IVPREM* 200 MG in PREMIX* 0 ML IV SCH ×2 (12:26→18:13)
[2017-04-09] MEDS: Atorvastatin* 40 MG TAB PO SCH (20:22)
[2017-04-09] MEDS ORDERED: Alteplase (CATHFLO)* 2 MG VIAL IV ONE (20:42)
[2017-04-09] MEDS: Carvedilol TAB* 3.125 MG PO SCH (21:21)
[2017-04-10] MEDS: DOPamine 200 MG/250 ML IVPREM* 200 MG in PREMIX* 0 ML IV SCH ×5 (00:35→19:17)
[2017-04-10] MEDS: NS 0.9% 500 ML BAG* 500 ML IV ONE (03:38)
[2017-04-10] MEDS: Heparin VIAL(*) 5000 UNITS/ML VIAL (FIVE THOUSAND) SUBCUT SCH ×3 (04:28→19:17)
[2017-04-10 05:31] LABS: Hematocrit 27 % (35-47); Hemoglobin 8.9 g/dl (12.0-16.0); Mean Corpuscular HGB Conc 33 g/dl (31-36); Mean Corpuscular Hemoglobin 30 pg (27-31); Mean Corpuscular Volume 92 fL (80-97); Mean Platelet Volume 8 um3 (7.4-10.4); Red Blood Count 2.97 10^6/ul (4.0-5.4); Red Cell Distribution Width 16 % (10.5-15); White Blood Count 16.5 10^3/ul (3.5-10.8)
[2017-04-10 05:43] LABS: Calcium 7.8 mg/dL (8.6-10.3); Magnesium 2.3 mg/dL (1.9-2.7); Phosphorus 7.9 mg/dL (2.5-5.0); Potassium 4.1 mmol/L (3.5-5.0)
[2017-04-10 05:44] LABS: Comments Flag Yes
[2017-04-10] MEDS: Omeprazole CAP* 20 MG PO SCH (06:10)
[2017-04-10] MEDS: ZOSYN 3.375 GM Q12H per EXTENDED INFUSION IVPB SCH ×4 (06:10→19:17)
[2017-04-10] MEDS: Insulin LISPRO* 1 UNITS UNIT SUBCUT SCH ×4 (07:25→21:07)
[2017-04-10] MEDS: Aspirin EC Low Dose* 81 MG TAB.EC PO SCH (08:10)
[2017-04-10] MEDS: Insulin GLARGINE(*) 1 UNITS UNIT SUBCUT SCH (08:10)
[2017-04-10] MEDS: Carvedilol TAB* 3.125 MG PO SCH (09:10)
--- NOTE | 2017-04-10 10:29 | PN ---
Progress Note - Progress Note Date of Service: 04/10/17 Note: CRITICAL CARE MEDICINE Date: 04/10/17 Time: 905 SUBJECTIVE: Patient seen and examined. PHYSICAL EXAM: Vital Signs: Reviewed. SB. @l O2 with sleep Neurologic: awake, communicating, no encephalopathy HEENT: pupils equal. Sclera anicteric. Trachea midline. Cardiovascular: reg, distant, S1 S2, 2/6 GA, no rub Respiratory: dec but clear Abdomen: Soft, nt, obese Extremities: Warm; dep edema Access: left subcl intact LABS: Reviewed. IMAGING: Reviewed. MEDICATIONS: Reviewed. ASSESSMENT: 72 F Severe sepsis sec to esbl uti Acute hypoxic resp failure - improved Acute decompensated systolic heart failure with acute pulm edema - stabilized Afib post sepsis - converted to sinus CAD Acute renal failure with component of atn - declining to oliguric failure Uncontrolled DM - stable PLAN: Neurologic: communicating Cardiovascular: perfusing. SB still post bb. bb held but Hr still down and bp dips occasionally. Attempted low dose dopamine yesterday and will try to titrate to higher perfusion pressure today to see if any renal benefit. Could consider dobutamine instead if Hr problematic, but may be more arrhythmia prone. repeat echo tuesday. Respiratory: O2 at night and as needed. Gastrointestinal: po diet. Renal/Metabolic: sharon oliguric now and clearance failing as well. Unfortunately , not looking like we can get through this without acute hd needs. CAn trial diuretics again, but unlikely to benefit enough. Inc perfusion pressures. avoid further volume. Nephro eval. May need HD come Tuesday/tue. Infectious Disease: zosyn continued for esbl Hematology: stable. heparin subq; plt recovering post sepsis consumption. Endocrine: lantus and ssi; less insulin clearance with failing CrCl and may need less dosing. check random cortisol. Musculoskeletal: oob today; ambulate. Pt Psych/Social: pt expressed understanding. spirits down Supportive and preventative care as ordered. SUP: po VTE prophylaxis: on heparin Disposition: ICU Code Status: Full Critical Care Time: 30min Kelley Pittmna DO
--- NOTE | 2017-04-10 11:42 | ECHO ---
Patient: LENNY MONTAÑO [facility] Rec#: [id number] : 1945 Date: 04/10/2017 Age: 72y Height: 152.4 cm / 60.0 in Weight: 100 kg / 220.4 lbs Sex: F BSA: 1.95 Room#: [facility] Admit Date#: 04/05/2017 Type: Inpatient Referring: Juan Arenas DO Reading: Jackson Camejo MD Needlemaker: Judith Doll RDCS CC: Bassam Jay DO Transthoracic Echocardiogram Indication: NSTEMI BP: 146/63 HR: 88 Rhythm: NSR with PVCs Findings History: DMII, HTN, HLD, S/P hip replacement 09/24, A-fib. This is a LIMITED study to evaluate LVEF. Technical Comments: The study quality is fair. The study is technically limited due to patient body habitus. Completed at 0855. Left Ventricle: The left ventricular chamber size is normal. Global left ventricular wall motion and contractility are within normal limits. Left ventricular systolic function is at the lower limits of normal. The estimated ejection fraction is 50-55%. Right Ventricle: The right ventricular cavity size is normal. The right ventricular global systolic function is normal. Conclusions Global left ventricular wall motion and contractility are within normal limits. Left ventricular systolic function is at the lower limits of normal. The estimated ejection fraction is 50-55%. Limited follow up echo Compared to study of 04/05/17, the LV function has improved for EF 25% to near normal
[2017-04-10] MEDS ORDERED: Ondansetron INJ* 2 MG/ML VIAL IV PRN (11:56)
[2017-04-10] MEDS ORDERED: Ondansetron INJ* 2 MG/ML VIAL ONE (12:01)
[2017-04-10] MEDS: Calcium Acetate CAP* 667 MG PO SCH ×2 (13:34→21:07)
[2017-04-10] MEDS ORDERED: Furosemide IV* 10 MG/ML 10 ML VIAL (100 MG) IV ONE (14:32)
[2017-04-10] MEDS: Acetaminophen TAB* 325 MG PO PRN (14:59)
--- NOTE | 2017-04-10 21:05 | PN ---
Progress Note - Progress Note Date of Service: 04/10/17 Note: Cross cover note: Called for FSG 62. Patient asymptomatic. Insulin clearance less with ROSALINDA. Decrease lantus to 20U now and adjust as needed tomorrow.
[2017-04-10] MEDS: Atorvastatin* 40 MG TAB PO SCH (21:07)
[2017-04-10] MEDS ORDERED: Insulin GLARGINE(*) 1 UNITS UNIT SUBCUT SCH (22:00)
[2017-04-11] MEDS: NS 0.9% 500 ML BAG* 500 ML IV ONE (01:48)
[2017-04-11] MEDS: DOPamine 200 MG/250 ML IVPREM* 200 MG in PREMIX* 0 ML IV SCH (01:49)
[2017-04-11] MEDS: Heparin VIAL(*) 5000 UNITS/ML VIAL (FIVE THOUSAND) SUBCUT SCH ×3 (02:48→18:25)
[2017-04-11 05:52] LABS: Hematocrit 27 % (35-47); Mean Corpuscular HGB Conc 33 g/dl (31-36); Mean Corpuscular Hemoglobin 31 pg (27-31); Mean Corpuscular Volume 92 fL (80-97); Mean Platelet Volume 8 um3 (7.4-10.4); Red Blood Count 2.93 10^6/ul (4.0-5.4); Red Cell Distribution Width 16 % (10.5-15); White Blood Count 17.6 10^3/ul (3.5-10.8)
[2017-04-11 06:02] LABS: Calcium 7.9 mg/dL (8.6-10.3); EGFR African American 8.8 (>60); EGFR Non-African American 6.8 (>60); Magnesium 2.3 mg/dL (1.9-2.7); Phosphorus 8.8 mg/dL (2.5-5.0); Potassium 4.4 mmol/L (3.5-5.0)
[2017-04-11] MEDS: Dextrose 50% Syringe 50 ML* 25 GM/50 ML SYRINGE IV PUSH PRN (06:16)
[2017-04-11] MEDS: Omeprazole CAP* 20 MG PO SCH (06:21)
[2017-04-11] MEDS: ZOSYN 3.375 GM Q12H per EXTENDED INFUSION IVPB SCH ×4 (06:21→18:24)
[2017-04-11] MEDS: Insulin LISPRO* 1 UNITS UNIT SUBCUT SCH ×4 (08:11→21:00)
--- NOTE | 2017-04-11 09:33 | PN ---
Progress Note - Progress Note Date of Service: 04/11/17 Note: CRITICAL CARE MEDICINE Date: 04/11/17 Time: 915 SUBJECTIVE: Patient seen and examined. PHYSICAL EXAM: Vital Signs: Reviewed. SB. Neurologic: awake, communicating, no encephalopathy HEENT: pupils equal. Sclera anicteric. Trachea midline. Cardiovascular: reg, distant, S1 S2, 2/6 GA, no rub Respiratory: dec but clear Abdomen: Soft, nt, obese Extremities: Warm; dep edema Access: left subcl intact LABS: Reviewed. IMAGING: Reviewed. MEDICATIONS: Reviewed. ASSESSMENT: 72 F Severe sepsis sec to esbl uti Acute hypoxic resp failure - improved Acute decompensated systolic heart failure with acute pulm edema - stabilized Afib post sepsis - converted to sinus CAD Acute renal failure with component of atn - declining to oliguric failure Uncontrolled DM - stable PLAN: Neurologic: communicating Cardiovascular: perfusing. SB still and utilizing low dose dopamine. repeat echo tomorrow Respiratory: O2 at night and as needed. resp status otherwise stable. Gastrointestinal: po diet. Renal/Metabolic: 900ml out with lasix 200mg yesterday. see if any further advancement without today. worried she is not going to obtain adequete clearance. d/w nephro. buffer acid to see if she'll feel any better and perhaps hopeful recovery can advance over next 48hrs. If not by then would utilize HD. Infectious Disease: zosyn continued for esbl Hematology: stable. heparin subq Endocrine: lantus off given renal dynamics. ssi Musculoskeletal: oob today; ambulate. Pt Psych/Social: pt expressed understanding. family updated yesterday Supportive and preventative care as ordered. SUP: po VTE prophylaxis: on heparin Disposition: ICU Code Status: Full Critical Care Time: 30min Kelley Pittman DO
[2017-04-11] MEDS ORDERED: Sodium Bicarbonate 8.4% IV* 150 MEQ in D5W 1000 ML BAG* 1,000 ML IVPB SCH (10:00)
[2017-04-11] MEDS: Sodium Citrate/Citric Acid* 15 ML UDC PO SCH ×3 (10:02→20:57)
[2017-04-11] MEDS: Calcium Acetate CAP* 667 MG PO SCH ×3 (10:02→20:57)
[2017-04-11] MEDS: Aspirin EC Low Dose* 81 MG TAB.EC PO SCH (10:02)
--- NOTE | 2017-04-11 11:44 | CONS ---
CC: Dr. Jay, [place] * NEPHROLOGY CONSULTATION: DATE OF CONSULT: 04/11/17 HISTORY OF PRESENT ILLNESS: Ms. Romero is a 72-year-old female with a history of diabetes mellitus type 2 for at least 20 years. She tells me she has a history of diabetic retinopathy, but has been told that laser treatments would not work for her. She has a history of diabetic neuropathy. She apparently was having malaise for a couple of weeks prior to admission. Her appetite was poor. She was not eating and drinking well at all. She apparently was found on the floor, unable to get up. She had been having some progressive weakness. She had been having progressive edema over the past few weeks. She continues to have significant malaise and anorexia at the present time. PAST MEDICAL HISTORY: Significant for hypertension, although she does not know the duration. She has a history of osteoarthritis and depression. ADMITTING MEDICATIONS: Included: 1. Omeprazole 20 mg daily. 2. Amlodipine 10 mg daily. 3. Lipitor 40 mg daily. 4. Meloxicam 15 mg daily. 5. Lisinopril 40 mg daily. 6. Lispro 75/25, 50 twice a day. 7. Gemfibrozil 600 mg daily. ALLERGIES: There are no medical allergies. FAMILY HISTORY: Significant in that her brother had diabetes mellitus and a stroke. SOCIAL HISTORY: She is . Lives with her . She does not use alcohol or tobacco. REVIEW OF SYSTEMS: She has had no orthostatic dizziness. No visual disturbances. No swallowing difficulties. No heat or cold intolerance. No chest pain. No shortness of breath. She has had some urinary incontinence. She was originally seen over the [facility]. She was found to have urosepsis. She was transferred to [facility] where she was noted to have worsening renal function. DIAGNOSTIC STUDIES/LAB DATA: A review of her laboratory studies reveals that her serum sodium is a little low at 132, potassium is 4.4, chloride is 106, total CO2 of 14. Creatinine is 6.04, up from her baseline of 1.19 in November of this year. BUN is 109. White count is 17.6 with a hemoglobin of 9, platelets are 143,000. IMPRESSION: Acute renal failure. This is most likely the combined effects of prerenal state together with meloxicam in the face of active infection. Her rate of rise of creatinine has slowed over the past 2 days. It may be possible to manage her conservatively without proceeding on to dialysis, but I would buffer her metabolic acidosis at this point. I would check a TSH even though her TSH was normal in June of last year. Her iron saturation is quite low and she may benefit from supplemental iron as well. I have discussed the case at length with Dr. Pittman. [id number]/[facility] #: [id number] RUBI
[2017-04-11] MEDS: Acetaminophen TAB* 325 MG PO PRN (13:32)
[2017-04-11] MEDS: Atorvastatin* 40 MG TAB PO SCH (20:57)
[2017-04-12] MEDS: Heparin VIAL(*) 5000 UNITS/ML VIAL (FIVE THOUSAND) SUBCUT SCH ×3 (02:22→17:59)
[2017-04-12 05:44] LABS: Hematocrit 25 % (35-47); Hemoglobin 8.4 g/dl (12.0-16.0); Mean Corpuscular HGB Conc 34 g/dl (31-36); Mean Corpuscular Hemoglobin 30 pg (27-31); Mean Corpuscular Volume 90 fL (80-97); Mean Platelet Volume 8 um3 (7.4-10.4); Red Blood Count 2.79 10^6/ul (4.0-5.4); Red Cell Distribution Width 15 % (10.5-15); White Blood Count 13.2 10^3/ul (3.5-10.8)
[2017-04-12 06:00] LABS: BUN/Creatinine Ratio 17.3 (8-20); Calcium 7.6 mg/dL (8.6-10.3); EGFR African American 8.9 (>60); Potassium 4.1 mmol/L (3.5-5.0)
[2017-04-12] MEDS: ZOSYN 3.375 GM Q12H per EXTENDED INFUSION IVPB SCH ×4 (06:16→18:04)
[2017-04-12] MEDS: Omeprazole CAP* 20 MG PO SCH (06:16)
[2017-04-12] MEDS: Dextrose 50% Syringe 50 ML* 25 GM/50 ML SYRINGE IV PUSH PRN (06:32)
[2017-04-12] MEDS: Insulin LISPRO* 1 UNITS UNIT SUBCUT SCH ×2 (09:30→16:05)
[2017-04-12] MEDS: Calcium Acetate CAP* 667 MG PO SCH ×3 (10:01→21:05)
[2017-04-12] MEDS: Aspirin EC Low Dose* 81 MG TAB.EC PO SCH (10:01)
[2017-04-12] MEDS: Acetaminophen TAB* 325 MG PO PRN (10:01)
[2017-04-12] MEDS: Sodium Citrate/Citric Acid* 15 ML UDC PO SCH ×3 (10:01→21:05)
--- NOTE | 2017-04-12 10:12 | PN ---
PROGRESS NOTE: DATE OF SERVICE: 04/12/17 - ROOM #ICU-07 HISTORY: Ms. Romero appears to be getting better. She feels quite tired and easily fatigued. Her appetite is still pretty poor. However last night, she had a very good urine output with 2325 mL of urine, which is a significant increase. Her weight unfortunately is up a little bit to 106 kg. She now appears to be in sinus rhythm. Her blood pressure is 135/56. White count is 13.2 with a hemoglobin of 8.4. Sodium of 136; potassium of 4.1; total CO2 18, which is improved; chloride 108; creatinine is down a little at 5.99 with a BUN of 103. I think it is likely that she has begun to turn around her renal function. I think it is highly likely that we are going to be able to get away without dialyzing her. I would continue to buffer her acidosis at this point. IMPRESSION: 1. Acute renal failure. 2. Urosepsis. [id number]/[facility] #: [id number] RUBI
--- NOTE | 2017-04-12 11:01 | PN ---
Progress Note - Progress Note Date of Service: 04/12/17 Note: CRITICAL CARE MEDICINE Date: 04/12/17 Time: 900 SUBJECTIVE: Patient seen and examined. PHYSICAL EXAM: Vital Signs: Reviewed. NSR. Uout up well. Neurologic: awake, communicating, no encephalopathy; better spirits HEENT: pupils equal. Sclera anicteric. Trachea midline. Cardiovascular: reg, distant, S1 S2, 2/6 GA, no rub Respiratory: dec but clear Abdomen: Soft, nt, obese Extremities: Warm; dep edema Access: left subcl intact LABS: Reviewed. IMAGING: Reviewed. MEDICATIONS: Reviewed. ASSESSMENT: 72 F Severe sepsis sec to esbl uti Acute hypoxic resp failure - improved Acute decompensated systolic heart failure with acute pulm edema - recovering Afib post sepsis - converted to sinus CAD Acute renal failure with component of atn - with improved uout Uncontrolled DM - stable PLAN: Neurologic: communicating Cardiovascular: perfusing. vol tolerable. Respiratory: O2 prn. resp status otherwise stable. Gastrointestinal: po diet. Renal/Metabolic: Uout up overnight and no worsened clearance. Hopefully recovery phase now with diuretic phase and looking for clearance to slat pickler. will still take time. I bow to the gracious help and wisdom from Dr. Tan. Infectious Disease: zosyn course continued for esbl Hematology: stable. heparin subq Endocrine: lantus off still and utilize ssi as is given hopeful renal recovery and off long acting still. Musculoskeletal: ambulate. Pt Psych/Social: pt expressed understanding. Supportive and preventative care as ordered. SUP: po VTE prophylaxis: on heparin Disposition: ICU; potential floor tomorrow Code Status: Full Critical Care Time: 25min Kelley Pittman DO
[2017-04-12] MEDS ORDERED: Lidocaine 2% JELLY* 6 ML JELLY TOPICAL PRN (11:40)
[2017-04-12] MEDS: Insulin REGULAR(*) 1 UNITS UNIT SUBCUT SCH ×3 (12:28→21:02)
[2017-04-12] MEDS: LIDOCAINE 2% TOPICAL PRN (16:28)
[2017-04-12] MEDS: Atorvastatin* 40 MG TAB PO SCH (21:05)
[2017-04-13] MEDS: Heparin VIAL(*) 5000 UNITS/ML VIAL (FIVE THOUSAND) SUBCUT SCH ×3 (02:52→18:19)
[2017-04-13] MEDS: ZOSYN 3.375 GM Q12H per EXTENDED INFUSION IVPB SCH ×4 (05:52→18:22)
[2017-04-13] MEDS: Omeprazole CAP* 20 MG PO SCH (05:52)
[2017-04-13 06:47] LABS: BUN/Creatinine Ratio 17.7 (8-20); Calcium 7.5 mg/dL (8.6-10.3); EGFR African American 9.8 (>60); EGFR Non-African American 7.6 (>60); Phosphorus 6.8 mg/dL (2.5-5.0); Potassium 4.5 mmol/L (3.5-5.0)
[2017-04-13] MEDS: Insulin REGULAR(*) 1 UNITS UNIT SUBCUT SCH ×4 (09:28→21:53)
[2017-04-13] MEDS: Calcium Acetate CAP* 667 MG PO SCH ×3 (09:29→21:58)
[2017-04-13] MEDS: Aspirin EC Low Dose* 81 MG TAB.EC PO SCH (09:29)
[2017-04-13] MEDS: Sodium Citrate/Citric Acid* 15 ML UDC PO SCH ×3 (09:29→21:52)
[2017-04-13] MEDS ORDERED: Sodium Bicarbonate 8.4% IV* 150 MEQ in D5W 1000 ML BAG* 1,000 ML IVPB SCH (11:00)
--- NOTE | 2017-04-13 12:01 | PN ---
Progress Note - Progress Note Date of Service: 04/13/17 Note: CRITICAL CARE MEDICINE Date: 04/13/17 Time: 950 SUBJECTIVE: Patient seen and examined. PHYSICAL EXAM: Vital Signs: Reviewed. NSR. BP up. Uout well. Neurologic: awake, communicating, no encephalopathy HEENT: pupils equal. Sclera anicteric. Trachea midline. Cardiovascular: reg, distant, S1 S2, 2/6 GA, no rub Respiratory: clear Abdomen: Soft, nt, obese Extremities: Warm Access: left subcl intact LABS: Reviewed. IMAGING: Reviewed. MEDICATIONS: Reviewed. ASSESSMENT: 72 F PLAN: doing better. Severe sepsis sec to esbl uti - on 10-14 day course with zosyn. Acute renal failure with component of atn - with improvement improve Uout again. Cr downward. Hopefully can only continue to improve. Leave dela cruz today but consider dc soon if improving. Will buffer today with another total 1L for 3 amps bicarb. Remains on bicitrate. Continue to encourage po intake. Acute decompensated systolic heart failure with acute pulm edema - recovering Afib post sepsis - converted to sinus Doing well from cardiac perspective. Had low bp and hr overwkend when initiating coreg, hydralazine and nitrates. Can restart low dose coreg now and see how she does for a day and then consider initiation of further afterload reduction slowly. Will need cards f/u and consider re-do echo prior to dispo. Uncontrolled DM - stable; hypoglycemia events with arf With better renal clearance her BG have come up and will look to resume lower dose long aciting insulin which she has been off for a few days due to hypoglu. ssi continued at lower dose. still with complaint of skin tear on her buttock. lidocaine top helping a little , but needs to heal in evolution. Supportive and preventative care as ordered. SUP: po VTE prophylaxis: on heparin sq Disposition: to floor with tele for now Code Status: Full Critical Care Time: 28min Kelley Pittman DO
[2017-04-13] MEDS: LIDOCAINE 2% TOPICAL PRN (13:12)
[2017-04-13] MEDS: Insulin GLARGINE(*) 1 UNITS UNIT SUBCUT SCH (14:15)
[2017-04-13 14:36] LABS: M tuberculosis by Quantiferon Indeterminate (Negative); TB Ag minus Nil Result 0 IU/mL
[2017-04-13] MEDS: Carvedilol TAB* 3.125 MG PO SCH (21:56)
[2017-04-13] MEDS: Atorvastatin* 40 MG TAB PO SCH (21:59)
[2017-04-14] MEDS: LIDOCAINE 2% TOPICAL PRN ×2 (00:06→18:22)
[2017-04-14] MEDS: Heparin VIAL(*) 5000 UNITS/ML VIAL (FIVE THOUSAND) SUBCUT SCH ×3 (02:50→18:24)
[2017-04-14 05:13] LABS: Hematocrit 21 % (35-47); Hemoglobin 7.3 g/dl (12.0-16.0); Mean Corpuscular HGB Conc 34 g/dl (31-36); Mean Corpuscular Hemoglobin 31 pg (27-31); Mean Corpuscular Volume 90 fL (80-97); Mean Platelet Volume 8 um3 (7.4-10.4); Red Blood Count 2.37 10^6/ul (4.0-5.4); Red Cell Distribution Width 15 % (10.5-15); White Blood Count 9.7 10^3/ul (3.5-10.8)
[2017-04-14 05:29] LABS: BUN/Creatinine Ratio 18.5 (8-20); Calcium 7.6 mg/dL (8.6-10.3); EGFR African American 12.2 (>60); EGFR Non-African American 9.5 (>60); Magnesium 1.9 mg/dL (1.9-2.7); Phosphorus 5.2 mg/dL (2.5-5.0)
[2017-04-14] MEDS: Omeprazole CAP* 20 MG PO SCH (06:03)
[2017-04-14] MEDS: ZOSYN 3.375 GM Q12H per EXTENDED INFUSION IVPB SCH ×4 (06:06→18:23)
[2017-04-14] MEDS: Insulin REGULAR(*) 1 UNITS UNIT SUBCUT SCH ×4 (09:15→21:45)
[2017-04-14] MEDS: Calcium Acetate CAP* 667 MG PO SCH ×3 (09:17→21:47)
[2017-04-14] MEDS: Aspirin EC Low Dose* 81 MG TAB.EC PO SCH (09:17)
[2017-04-14] MEDS: Sodium Citrate/Citric Acid* 15 ML UDC PO SCH ×3 (09:18→21:44)
[2017-04-14] MEDS: Acetaminophen TAB* 325 MG PO PRN (09:18)
[2017-04-14] MEDS: Carvedilol TAB* 3.125 MG PO SCH ×2 (09:19→21:48)
[2017-04-14] MEDS: Insulin GLARGINE(*) 1 UNITS UNIT SUBCUT SCH (13:26)
[2017-04-14] MEDS ORDERED: Insulin GLARGINE(*) 1 UNITS UNIT SUBCUT SCH (14:05)
[2017-04-14] MEDS ORDERED: Insulin GLARGINE(*) 1 UNITS UNIT SUBCUT ONE (14:25)
--- NOTE | 2017-04-14 19:14 | PN ---
Subjective Date of Service: 04/14/17 Interval History: This is a 72 yo female who was admitted with severe sepsis secondary ESBL EColi of a urinary source with associated ROSALINDA, acute HF and afib who has required ICU care for the last 10d, now transferred to medical telemetry unit. Patient reports that she is extremely fatigued today. She complained of some SOB to nursing staff earlier today, but feels better since returning to bed from the chair. Denies CP, palpitations, abd pain, n/v. Objective Active Medications: Acetaminophen (Tylenol Tab*) 650 mg PO Q6H PRN PRN Reason: PAIN Last Admin: 04/14/17 09:18 Dose: 650 mg Albuterol/Ipratropium (Duoneb (Albuterol 2.5 Mg/Ipratropium 0.5 Mg)) 1 neb INH Q4H PRN PRN Reason: SOB/WHEEZING Last Admin: 04/06/17 16:04 Dose: 1 neb Amlodipine Besylate (Norvasc Tab*) 10 mg PO DAILY [facility] Aspirin (Aspirin Ec Low Dose*) 81 mg PO DAILY [facility] Last Admin: 04/14/17 09:17 Dose: 81 mg Atorvastatin Calcium (Lipitor*) 40 mg PO 2100 [facility] Last Admin: 04/13/17 21:59 Dose: 40 mg Calcium Acetate (Phoslo Cap*) 1,334 mg PO TID [facility] Last Admin: 04/14/17 13:27 Dose: 1,334 mg Carvedilol (Coreg Tab*) 3.125 mg PO BID [facility] Last Admin: 04/14/17 09:19 Dose: 3.125 mg Citric Acid/Sodium Citrate (Bicitra*) 15 ml PO TID [facility] Last Admin: 04/14/17 13:27 Dose: 15 ml Dextrose (D50w Syringe 50 Ml*) 12.5 gm IV PUSH .FOR FS < 60 - SS PRN PRN Reason: FS < 60 Last Admin: 04/12/17 06:32 Dose: 12.5 gm Heparin Sodium (Porcine) (Heparin Vial(*)) 5,000 units SUBCUT Q8H [facility] Last Admin: 04/14/17 18:24 Dose: 5,000 units Sodium Chloride (Ns 0.9% 1000 Ml*) 1,000 mls @ 0 mls/hr IV KVO [facility] PRN Reason: KVO Piperacillin Sod/Tazobactam (Sod 3.375 gm/ Sodium Chloride) 100 mls @ 25 mls/ hr IVPB Q12H [facility] Last Admin: 04/14/17 18:23 Dose: 25 mls/hr Sodium Bicarbonate 150 meq/ (Dextrose) 1,150 mls @ 60 mls/hr IVPB .Q24H [facility] Last Admin: 04/13/17 11:21 Dose: 60 mls/hr Insulin Glargine (Lantus(*)) 30 units SUBCUT Q24H [facility] Insulin Human Regular (Insulin Regular(*)) 0 units SUBCUT FS ACHS ICU [facility]IA PRN Reason: Protocol Last Admin: 04/14/17 18:24 Dose: 8 units Lidocaine HCl (Xylocaine 2 % Jelly*) 0 ml TOPICAL TID PRN PRN Reason: PAIN Last Admin: 04/14/17 18:22 Dose: 20 ml Omeprazole (Prilosec Cap*) 20 mg PO 0600 [facility] Last Admin: 04/14/17 06:03 Dose: 20 mg Ondansetron HCl (Zofran Inj*) 4 mg IV Q6H PRN PRN Reason: NAUSEA Last Admin: 04/10/17 12:03 Dose: 4 mg Pharmacy Consult (Zosyn Per Pharmacy*) 1 note FOLLOW UP .ZOSYN PER PHARMACY [facility] Vital Signs: Temp Pulse Resp BP Pulse Ox 97.6 F 65 22 148/45 93 04/14/17 15:26 04/14/17 15:26 04/14/17 15:26 04/14/17 15:26 04/14/17 16:00 Appearance: Ill appearing and fatigued elderly female in NAD Respiratory: Symmetrical Chest Expansion and Respiratory Effort, Clear to Auscultation Cardiovascular: NL Sounds; No Murmurs; No JVD, RRR Abdominal: NL Sounds; No Tenderness; No Distention Extremities: No Edema Neurological: Alert and Oriented x 3 Result Diagrams: 04/14/17 04:46 04/14/17 04:46 Microbiology and Other Data: Microbiology 04/06/17 10:30 Stool Occult Blood (JERMAIN) - Final Stool 04/05/17 14:00 Legionella Urinary Antigen - Final Urine Negative Legionella Streptococcus pneumoniae Ag Screen - Final Negative S. pneumo Antigen 04/05/17 13:15 Nasal Screen MRSA (PCR)(JERMAIN) - Final Nasal Mrsa Negative Assess/Plan/Problems-Billing Assessment: This is a 72 yo female with DM, HTN, obesity and depression who was admitted with severe sepsis found to secondary to ESBL EColi complicated by ROSALINDA, acute HF and afib requiring a prolonged ICU stay, now transferred to medical telemetry unit. - Patient Problems (1) Septicemia Comment: Improving ESBL EColi of urinary source Cont Zosyn (2) Diabetes Comment: Hypoglycemia earlier in hospital stay, now hyperglycemic Will titrate Lantus up for improved glycemic control (3) ROSALINDA (acute kidney injury) Comment: Secondary to sepsis Improving urine output and Cr continues to decline No need for additional bicarb today (4) Atrial fibrillation Comment: Secondary to sepsis Converted to sinus rhythm No anticoagulation at this time (5) Acute on chronic systolic heart failure Comment: EF measured at 20-25% Repeat echo to eval LV fxn tomorrow Expect improvement in LV fxn following recovery from sepsis (6) Hypertension Comment: Now hypertensive Restart home amlodipine Holding PILAR-I d/t ROSALINDA (7) Full code status Comment: SQ heparin (8) DVT prophylaxis Status and Disposition: Inpatient. Anticipate additional 2-3 LOS. Pending PT eval, anticipate DESTINI need following dc.
[2017-04-14] MEDS: Albuterol/Ipratropium NEB.SOL* Albuterol 2.5 MG/Ipratropium 0.5 MG 3 ML INH PRN (20:59)
[2017-04-14] MEDS: Atorvastatin* 40 MG TAB PO SCH (21:47)
[2017-04-15] MEDS: Heparin VIAL(*) 5000 UNITS/ML VIAL (FIVE THOUSAND) SUBCUT SCH ×3 (02:56→19:42)
[2017-04-15 05:45] LABS: Hematocrit 22 % (35-47); Hemoglobin 7.3 g/dl (12.0-16.0); Mean Corpuscular HGB Conc 34 g/dl (31-36); Mean Corpuscular Hemoglobin 31 pg (27-31); Mean Corpuscular Volume 91 fL (80-97); Mean Platelet Volume 8 um3 (7.4-10.4); Red Blood Count 2.39 10^6/ul (4.0-5.4); Red Cell Distribution Width 15 % (10.5-15); White Blood Count 8.9 10^3/ul (3.5-10.8)
[2017-04-15] MEDS: Omeprazole CAP* 20 MG PO SCH (05:47)
[2017-04-15] MEDS: ZOSYN 3.375 GM Q12H per EXTENDED INFUSION IVPB SCH ×4 (05:49→18:37)
[2017-04-15 05:59] LABS: BUN/Creatinine Ratio 18.9 (8-20); Calcium 7.9 mg/dL (8.6-10.3); EGFR African American 15.2 (>60); EGFR Non-African American 11.8 (>60); Potassium 4.2 mmol/L (3.5-5.0)
[2017-04-15] MEDS: Insulin GLARGINE(*) 1 UNITS UNIT SUBCUT SCH ×2 (07:53→13:35)
[2017-04-15] MEDS: Insulin REGULAR(*) 1 UNITS UNIT SUBCUT SCH ×4 (10:47→21:08)
[2017-04-15] MEDS: Aspirin EC Low Dose* 81 MG TAB.EC PO SCH (10:48)
[2017-04-15] MEDS: Calcium Acetate CAP* 667 MG PO SCH ×3 (10:48→21:09)
[2017-04-15] MEDS: Carvedilol TAB* 3.125 MG PO SCH ×2 (10:48→21:10)
[2017-04-15] MEDS: amLODIPine TAB* 5 MG PO SCH (10:48)
[2017-04-15] MEDS: Sodium Citrate/Citric Acid* 15 ML UDC PO SCH ×3 (10:49→21:09)
--- NOTE | 2017-04-15 11:05 | ECHO ---
Patient: LENNY MONTAÑO [facility] Rec#: [id number] : 1945 Date: 04/15/2017 Age: 72y Height: 152 cm / 59.8 in Weight: 103.46 kg / 228.0 lbs Sex: F BSA: 1.97 Room#: [facility] Admit Date#: 04/05/2017 Type: Inpatient Referring: Edward Mckeon Reading: Dylan Velázquez MD Digital Account Manager: Judith Doll RDCS CC: Bassam Jay DO Transthoracic Echocardiogram Indication: NSTEMI, sepsis BP: 164/53 HR: 61 Rhythm: NSR Findings History: Sepsis, DM, ROSALINDA, a-fib, CHF, HTN. This is a LIMITED study to reassess left ventricular function. Technical Comments: The study quality is fair. The study is technically limited due to patient body habitus. Completed at 1045. Left Ventricle: The left ventricular chamber size is normal. Global left ventricular wall motion and contractility are within normal limits. There is normal left ventricular systolic function. The estimated ejection fraction is 55-60%. Closer to 55% Right Ventricle: The right ventricular cavity size is normal. The right ventricular global systolic function is normal. Summary: There are no significant changes when compared to the previous study done on 04/10/2017, LV EF is stable . There is significant LV EF improvement from echo 04/05/2017 as LV EF then 25-30%. Conclusions Global left ventricular wall motion and contractility are within normal limits. There is normal left ventricular systolic function. The estimated ejection fraction is 55-60%. Closer to 55% There are no significant changes when compared to the previous study done on 04/10/2017, LV EF is stable . There is significant LV EF improvement from echo 04/05/2017 as LV EF then 25-30%.
--- NOTE | 2017-04-15 14:28 | PN ---
Subjective Date of Service: 04/15/17 Interval History: Patient reports some fatigue and mild SOB today. She has had a productive cough but states that has been persistent throughout her hospital stay. She is anxious about removing her Mcgovern and reports that she is incontinent at baseline. Objective Active Medications: Acetaminophen (Tylenol Tab*) 650 mg PO Q6H PRN PRN Reason: PAIN Last Admin: 04/14/17 09:18 Dose: 650 mg Albuterol/Ipratropium (Duoneb (Albuterol 2.5 Mg/Ipratropium 0.5 Mg)) 1 neb INH Q4H PRN PRN Reason: SOB/WHEEZING Last Admin: 04/14/17 20:59 Dose: 1 neb Amlodipine Besylate (Norvasc Tab*) 10 mg PO DAILY [facility] Last Admin: 04/15/17 10:48 Dose: 10 mg Aspirin (Aspirin Ec Low Dose*) 81 mg PO DAILY [facility] Last Admin: 04/15/17 10:48 Dose: 81 mg Atorvastatin Calcium (Lipitor*) 40 mg PO 2100 [facility] Last Admin: 04/14/17 21:47 Dose: 40 mg Calcium Acetate (Phoslo Cap*) 1,334 mg PO TID [facility] Last Admin: 04/15/17 13:35 Dose: 1,334 mg Carvedilol (Coreg Tab*) 3.125 mg PO BID [facility] Last Admin: 04/15/17 10:48 Dose: 3.125 mg Citric Acid/Sodium Citrate (Bicitra*) 15 ml PO TID [facility] Last Admin: 04/15/17 13:35 Dose: 15 ml Dextrose (D50w Syringe 50 Ml*) 12.5 gm IV PUSH .FOR FS < 60 - SS PRN PRN Reason: FS < 60 Last Admin: 04/12/17 06:32 Dose: 12.5 gm Heparin Sodium (Porcine) (Heparin Vial(*)) 5,000 units SUBCUT Q8H [facility] Last Admin: 04/15/17 10:49 Dose: 5,000 units Sodium Chloride (Ns 0.9% 1000 Ml*) 1,000 mls @ 0 mls/hr IV KVO KIA PRN Reason: KVO Piperacillin Sod/Tazobactam (Sod 3.375 gm/ Sodium Chloride) 100 mls @ 25 mls/ hr IVPB Q12H [facility] Last Admin: 04/15/17 05:49 Dose: 25 mls/hr Insulin Glargine (Lantus(*)) 30 units SUBCUT Q24H [facility] Last Admin: 04/15/17 13:35 Dose: 30 units Insulin Human Regular (Insulin Regular(*)) 0 units SUBCUT FS ACHS ICU [facility]IA PRN Reason: Protocol Last Admin: 04/15/17 12:48 Dose: Not Given Lidocaine HCl (Xylocaine 2 % Jelly*) 0 ml TOPICAL TID PRN PRN Reason: PAIN Last Admin: 04/14/17 18:22 Dose: 20 ml Omeprazole (Prilosec Cap*) 20 mg PO 0600 [facility] Last Admin: 04/15/17 05:47 Dose: 20 mg Ondansetron HCl (Zofran Inj*) 4 mg IV Q6H PRN PRN Reason: NAUSEA Last Admin: 04/10/17 12:03 Dose: 4 mg Pharmacy Consult (Zosyn Per Pharmacy*) 1 note FOLLOW UP .ZOSYN PER PHARMACY [facility] Vital Signs: Temp Pulse Resp BP Pulse Ox 97.6 F 70 18 168/63 100 04/15/17 11:05 04/15/17 11:05 04/15/17 11:05 04/15/17 11:05 04/15/17 11:05 Oxygen Devices in Use Now: Nasal Cannula Appearance: Elderly female who appears fatigued and mildly tachypneic Respiratory: Symmetrical Chest Expansion and Respiratory Effort, - - faint crackles noted Cardiovascular: NL Sounds; No Murmurs; No JVD, RRR Abdominal: NL Sounds; No Tenderness; No Distention Extremities: No Edema Skin: No Rash or Ulcers Neurological: Alert and Oriented x 3 Result Diagrams: 04/15/17 05:19 04/15/17 05:19 Microbiology and Other Data: Microbiology 04/06/17 10:30 Stool Occult Blood ([facility]ERMAIN) - Final Stool 04/05/17 14:00 Legionella Urinary Antigen - Final Urine Negative Legionella Streptococcus pneumoniae Ag Screen - Final Negative S. pneumo Antigen 04/05/17 13:15 Nasal Screen MRSA (PCR)([facility]) - Final Nasal Mrsa Negative Diagnostic Imaging: Echo 04/15 - repeat for eval of LV fxn shows improvement to 55-60% Assess/Plan/Problems-Billing Assessment: This is a 72 yo female with DM, HTN, obesity and depression who was admitted with severe sepsis found to secondary to ESBL EColi complicated by ROSALINDA, acute HF and afib requiring a prolonged ICU stay, now transferred to medical telemetry unit. - Patient Problems (1) Septicemia Comment: Improving ESBL EColi of urinary source Cont Zosyn, day 07/21 (2) Cough Comment: Some cough and SOB Few fine crackles on exam, but appears euvolemic Suspect atelectasis Encouraged time in chair, start flutter valve CXR pend (3) Diabetes Comment: Improved glycemic control with Lantus up to 30U (4) ROSALINDA (acute kidney injury) Comment: Secondary to sepsis Improved urine output and Cr continues to decline Serum HCO3 continues to rise to near normal without additional supp Can remove Mcgovern (5) Atrial fibrillation Comment: Secondary to sepsis Converted to sinus rhythm No anticoagulation at this time (6) Acute on chronic systolic heart failure Comment: EF measured at 20-25% earlier in hospital stay Repeat echo shows full resolution with LVEF up to 55-60% (7) Hypertension Comment: Now hypertensive Restarted home amlodipine Holding PILAR-I d/t ROSALINDA (8) Full code status Comment: SQ heparin (9) DVT prophylaxis Status and Disposition: Inpatient. Anticipate additional 2d LOS. Pending PT eval, anticipate DESTINI Tuesday.
--- NOTE | 2017-04-15 16:11 | RAD ---
INDICATION: Short of breath. Cough COMPARISON: April 05, 2017 TECHNIQUE: PA and lateral dual-energy views were obtained. FINDINGS: Bones/Soft Tissues: There are no acute bony findings. Cardiomediastinal: The heart is normal in size. The central pulmonary vessels and interstitium are prominent compatible with moderate vascular congestion. Lungs: There is alveolar change in right lung base which could be related to alveolar edema although a superimposed infiltrate is not excluded radiographically. Pleura: Small bilateral effusions. Other: None IMPRESSION: MODERATE VASCULAR CONGESTION. SUGGEST FOLLOW-UP.
[2017-04-15] MEDS ORDERED: Furosemide IV* 10 MG/ML 2 ML VIAL (20 MG) IV ONE (16:14)
[2017-04-15] MEDS: Atorvastatin* 40 MG TAB PO SCH (21:10)
[2017-04-16] MEDS: Heparin VIAL(*) 5000 UNITS/ML VIAL (FIVE THOUSAND) SUBCUT SCH ×3 (02:36→17:33)
[2017-04-16] MEDS: Omeprazole CAP* 20 MG PO SCH (05:59)
[2017-04-16] MEDS: ZOSYN 3.375 GM Q12H per EXTENDED INFUSION IVPB SCH ×4 (05:59→17:33)
[2017-04-16] MEDS: Insulin REGULAR(*) 1 UNITS UNIT SUBCUT SCH ×4 (08:23→22:28)
[2017-04-16] MEDS: Sodium Citrate/Citric Acid* 15 ML UDC PO SCH ×3 (08:24→22:30)
[2017-04-16] MEDS: Carvedilol TAB* 3.125 MG PO SCH ×2 (08:24→22:25)
[2017-04-16] MEDS: amLODIPine TAB* 5 MG PO SCH (08:24)
[2017-04-16] MEDS: Aspirin EC Low Dose* 81 MG TAB.EC PO SCH (08:24)
[2017-04-16] MEDS: Calcium Acetate CAP* 667 MG PO SCH ×3 (08:24→22:27)
[2017-04-16 09:34] LABS: Hematocrit 23 % (35-47); Hemoglobin 7.7 g/dl (12.0-16.0); Mean Corpuscular HGB Conc 34 g/dl (31-36); Mean Corpuscular Hemoglobin 31 pg (27-31); Mean Corpuscular Volume 92 fL (80-97); Mean Platelet Volume 8 um3 (7.4-10.4); Red Blood Count 2.47 10^6/ul (4.0-5.4); Red Cell Distribution Width 15 % (10.5-15); White Blood Count 8.8 10^3/ul (3.5-10.8)
[2017-04-16 09:50] LABS: BUN/Creatinine Ratio 18.8 (8-20); Calcium 8.7 mg/dL (8.6-10.3); EGFR African American 19.4 (>60); EGFR Non-African American 15.1 (>60); Potassium 4.6 mmol/L (3.5-5.0)
[2017-04-16 12:36] LABS: PCO2 Arterial 45 mmHg (35-45)
[2017-04-16] MEDS: Insulin GLARGINE(*) 1 UNITS UNIT SUBCUT SCH (13:45)
--- NOTE | 2017-04-16 13:49 | PN ---
Subjective Date of Service: 04/16/17 Interval History: Patient is still complaining of some mild SOB today. Nursing staff reported some confusion earlier today. Patient reports "I am always a little confused" in a joking manner and was able to carry on an appropriate conversation about recent events. She got up to the chair for a bit this am. Mcgovern was removed. She denies any additional concerns. She also reports compliance with flutter valve. Objective Active Medications: Acetaminophen (Tylenol Tab*) 650 mg PO Q6H PRN PRN Reason: PAIN Last Admin: 04/14/17 09:18 Dose: 650 mg Albuterol/Ipratropium (Duoneb (Albuterol 2.5 Mg/Ipratropium 0.5 Mg)) 1 neb INH Q4H PRN PRN Reason: SOB/WHEEZING Last Admin: 04/14/17 20:59 Dose: 1 neb Amlodipine Besylate (Norvasc Tab*) 10 mg PO DAILY [facility] Last Admin: 04/16/17 08:24 Dose: 10 mg Aspirin (Aspirin Ec Low Dose*) 81 mg PO DAILY [facility] Last Admin: 04/16/17 08:24 Dose: 81 mg Atorvastatin Calcium (Lipitor*) 40 mg PO 2100 [facility] Last Admin: 04/15/17 21:10 Dose: 40 mg Calcium Acetate (Phoslo Cap*) 1,334 mg PO TID [facility] Last Admin: 04/16/17 08:24 Dose: 1,334 mg Carvedilol (Coreg Tab*) 3.125 mg PO BID [facility] Last Admin: 04/16/17 08:24 Dose: 3.125 mg Citric Acid/Sodium Citrate (Bicitra*) 15 ml PO TID [facility] Last Admin: 04/16/17 08:24 Dose: 15 ml Dextrose (D50w Syringe 50 Ml*) 12.5 gm IV PUSH .FOR FS < 60 - SS PRN PRN Reason: FS < 60 Last Admin: 04/12/17 06:32 Dose: 12.5 gm Heparin Sodium (Porcine) (Heparin Vial(*)) 5,000 units SUBCUT Q8H [facility] Last Admin: 04/16/17 10:33 Dose: 5,000 units Sodium Chloride (Ns 0.9% 1000 Ml*) 1,000 mls @ 0 mls/hr IV KVO [facility] PRN Reason: KVO Last Admin: 04/15/17 18:35 Dose: 15 mls/hr Piperacillin Sod/Tazobactam (Sod 3.375 gm/ Sodium Chloride) 100 mls @ 25 mls/ hr IVPB Q12H [facility] Last Admin: 04/16/17 05:59 Dose: 25 mls/hr Insulin Glargine (Lantus(*)) 30 units SUBCUT Q24H [facility] Last Admin: 04/15/17 13:35 Dose: 30 units Insulin Human Regular (Insulin Regular(*)) 0 units SUBCUT FS ACHS ICU [facility] PRN Reason: Protocol Last Admin: 04/16/17 12:10 Dose: 4 units Lidocaine HCl (Xylocaine 2 % Jelly*) 0 ml TOPICAL TID PRN PRN Reason: PAIN Last Admin: 04/14/17 18:22 Dose: 20 ml Omeprazole (Prilosec Cap*) 20 mg PO 0600 [facility] Last Admin: 04/16/17 05:59 Dose: 20 mg Ondansetron HCl (Zofran Inj*) 4 mg IV Q6H PRN PRN Reason: NAUSEA Last Admin: 04/10/17 12:03 Dose: 4 mg Pharmacy Consult (Zosyn Per Pharmacy*) 1 note FOLLOW UP .ZOSYN PER PHARMACY [facility] Vital Signs: Temp Pulse Resp BP Pulse Ox 97.3 F 74 32 184/67 98 04/16/17 11:48 04/16/17 11:48 04/16/17 11:48 04/16/17 11:48 04/16/17 11:48 Oxygen Devices in Use Now: Nasal Cannula Appearance: Elderly female in NAD Respiratory: Symmetrical Chest Expansion and Respiratory Effort, - - few crackles Cardiovascular: NL Sounds; No Murmurs; No JVD, RRR Extremities: No Edema Skin: No Rash or Ulcers Neurological: Alert and Oriented x 3 Result Diagrams: 04/16/17 09:16 04/16/17 09:16 Microbiology and Other Data: Microbiology 04/06/17 10:30 Stool Occult Blood ([facility]) - Final Stool 04/05/17 14:00 Legionella Urinary Antigen - Final Urine Negative Legionella Streptococcus pneumoniae Ag Screen - Final Negative S. pneumo Antigen 04/05/17 13:15 Nasal Screen MRSA (PCR)([facility]) - Final Nasal Mrsa Negative Diagnostic Imaging: Echo 04/15 - repeat for eval of LV fxn shows improvement to 55-60% Assess/Plan/Problems-Billing Assessment: This is a 72 yo female with DM, HTN, obesity and depression who was admitted with severe sepsis found to secondary to ESBL EColi complicated by ROSALINDA, acute HF and afib requiring a prolonged ICU stay, now transferred to medical telemetry unit. - Patient Problems (1) Septicemia Comment: Improving ESBL EColi of urinary source Cont Zosyn, day 13/ (2) Cough Comment: Some cough and SOB Few fine crackles on exam, but appears euvolemic Mild congested appearance on CXR yesterday Cont Lasix and flutter valve (3) Diabetes Comment: Noted hyperglycemia again today Up titrate Lantus again (4) ROSALINDA (acute kidney injury) Comment: Secondary to sepsis Improved urine output and Cr continues to decline Serum HCO3 continues to rise to near normal without additional supp Mcgovern out (5) Atrial fibrillation Comment: Secondary to sepsis Converted to sinus rhythm No anticoagulation at this time (6) Acute on chronic systolic heart failure Comment: EF measured at 20-25% earlier in hospital stay Repeat echo shows full resolution with LVEF up to 55-60% (7) Hypertension Comment: Now hypertensive Restarted home amlodipine Holding PILAR-I d/t ROSALINDA (8) Full code status Comment: SQ heparin (9) DVT prophylaxis Status and Disposition: Inpatient. Anticipate additional 2d LOS. Anticipate [facility] Tuesday.
[2017-04-16] MEDS ORDERED: Insulin GLARGINE(*) 1 UNITS UNIT SUBCUT SCH (13:57)
[2017-04-16] MEDS ORDERED: Insulin GLARGINE(*) 1 UNITS UNIT SUBCUT ONE (13:58)
[2017-04-16] MEDS: Albuterol/Ipratropium NEB.SOL* Albuterol 2.5 MG/Ipratropium 0.5 MG 3 ML INH PRN (19:42)
[2017-04-16] MEDS: Atorvastatin* 40 MG TAB PO SCH (22:27)
[2017-04-16] MEDS: hydrALAZINE TAB* 10 MG PO SCH (22:28)
[2017-04-17] MEDS: Heparin VIAL(*) 5000 UNITS/ML VIAL (FIVE THOUSAND) SUBCUT SCH ×3 (03:54→17:48)
[2017-04-17] MEDS: ZOSYN 3.375 GM Q12H per EXTENDED INFUSION IVPB SCH ×4 (06:04→17:48)
[2017-04-17] MEDS: Omeprazole CAP* 20 MG PO SCH (06:04)
[2017-04-17] MEDS: LIDOCAINE 2% TOPICAL PRN (08:21)
[2017-04-17] MEDS: Insulin REGULAR(*) 1 UNITS UNIT SUBCUT SCH ×4 (08:21→21:30)
[2017-04-17] MEDS: Sodium Citrate/Citric Acid* 15 ML UDC PO SCH ×3 (08:36→20:14)
[2017-04-17] MEDS: Aspirin EC Low Dose* 81 MG TAB.EC PO SCH (08:37)
[2017-04-17] MEDS: Carvedilol TAB* 3.125 MG PO SCH ×2 (08:37→20:15)
[2017-04-17] MEDS: amLODIPine TAB* 5 MG PO SCH (08:38)
[2017-04-17] MEDS: hydrALAZINE TAB* 10 MG PO SCH ×3 (08:38→20:16)
[2017-04-17] MEDS: Calcium Acetate CAP* 667 MG PO SCH ×3 (08:38→20:14)
[2017-04-17] MEDS: Albuterol/Ipratropium NEB.SOL* Albuterol 2.5 MG/Ipratropium 0.5 MG 3 ML INH PRN ×2 (08:58→11:10)
--- NOTE | 2017-04-17 11:06 | PN ---
Subjective Date of Service: 04/17/17 Interval History: Patient reports no acute complaints. Still dyspneic but no significant hypoxia. Denies CP, palp, abd pain, n/v. Objective Active Medications: Acetaminophen (Tylenol Tab*) 650 mg PO Q6H PRN PRN Reason: PAIN Last Admin: 04/14/17 09:18 Dose: 650 mg Albuterol/Ipratropium (Duoneb (Albuterol 2.5 Mg/Ipratropium 0.5 Mg)) 1 neb INH Q4H PRN PRN Reason: SOB/WHEEZING Last Admin: 04/17/17 08:58 Dose: 1 neb Amlodipine Besylate (Norvasc Tab*) 10 mg PO DAILY [facility] Last Admin: 04/17/17 08:38 Dose: 10 mg Aspirin (Aspirin Ec Low Dose*) 81 mg PO DAILY [facility] Last Admin: 04/17/17 08:37 Dose: 81 mg Atorvastatin Calcium (Lipitor*) 40 mg PO 2100 [facility] Last Admin: 04/16/17 22:27 Dose: 40 mg Calcium Acetate (Phoslo Cap*) 1,334 mg PO TID [facility] Last Admin: 04/17/17 08:38 Dose: 1,334 mg Carvedilol (Coreg Tab*) 3.125 mg PO BID [facility] Last Admin: 04/17/17 08:37 Dose: 3.125 mg Citric Acid/Sodium Citrate (Bicitra*) 15 ml PO TID [facility] Last Admin: 04/17/17 08:36 Dose: 15 ml Dextrose (D50w Syringe 50 Ml*) 12.5 gm IV PUSH .FOR FS < 60 - SS PRN PRN Reason: FS < 60 Last Admin: 04/12/17 06:32 Dose: 12.5 gm Heparin Sodium (Porcine) (Heparin Vial(*)) 5,000 units SUBCUT Q8H [facility] Last Admin: 04/17/17 10:43 Dose: 5,000 units Hydralazine HCl (Apresoline Tab*) 15 mg PO TID [facility] Piperacillin Sod/Tazobactam (Sod 3.375 gm/ Sodium Chloride) 100 mls @ 25 mls/ hr IVPB Q12H [facility] Last Admin: 04/17/17 06:04 Dose: 25 mls/hr Insulin Glargine (Lantus(*)) 40 units SUBCUT Q24H [facility] Insulin Human Regular (Insulin Regular(*)) 0 units SUBCUT FS ACHS ICU [facility] PRN Reason: Protocol Last Admin: 04/17/17 08:21 Dose: 2 units Lidocaine HCl (Xylocaine 2 % Jelly*) 0 ml TOPICAL TID PRN PRN Reason: PAIN Last Admin: 04/17/17 08:21 Dose: 20 ml Omeprazole (Prilosec Cap*) 20 mg PO 0600 [facility] Last Admin: 04/17/17 06:04 Dose: 20 mg Ondansetron HCl (Zofran Inj*) 4 mg IV Q6H PRN PRN Reason: NAUSEA Last Admin: 04/10/17 12:03 Dose: 4 mg Pharmacy Consult (Zosyn Per Pharmacy*) 1 note FOLLOW UP .ZOSYN PER PHARMACY [facility] Vital Signs: Temp Pulse Resp BP Pulse Ox 97.9 F 72 22 187/66 95 04/17/17 07:26 04/17/17 10:42 04/17/17 09:01 04/17/17 07:26 04/17/17 10:42 Oxygen Devices in Use Now: Nasal Cannula Appearance: Chronically ill appearing elderly female in NAD Respiratory: Symmetrical Chest Expansion and Respiratory Effort, - - diffuse rhonchi and occasional faint wheeze Cardiovascular: NL Sounds; No Murmurs; No JVD, RRR Abdominal: NL Sounds; No Tenderness; No Distention Extremities: No Edema Skin: No Rash or Ulcers Neurological: Alert and Oriented x 3 Result Diagrams: 04/16/17 09:16 04/16/17 09:16 Microbiology and Other Data: Microbiology 04/06/17 10:30 Stool Occult Blood ([facility]) - Final Stool 04/05/17 14:00 Legionella Urinary Antigen - Final Urine Negative Legionella Streptococcus pneumoniae Ag Screen - Final Negative S. pneumo Antigen 04/05/17 13:15 Nasal Screen MRSA (PCR)([facility]) - Final Nasal Mrsa Negative Diagnostic Imaging: Echo 04/15 - repeat for eval of LV fxn shows improvement to 55-60% Assess/Plan/Problems-Billing Assessment: This is a 72 yo female with DM, HTN, obesity and depression who was admitted with severe sepsis found to secondary to ESBL EColi complicated by ROSALINDA, acute HF and afib requiring a prolonged ICU stay, now transferred to medical telemetry unit. - Patient Problems (1) Septicemia Comment: Improving ESBL EColi of urinary source Cont Zosyn, day (2) Cough Comment: Some cough and SOB Suspect mild fluid overload and atelectasis Mild congested appearance on CXR Cont Lasix and flutter valve RA O2 sat 89% at rest (3) Diabetes Comment: Noted hyperglycemia again today Up titrate Lantus again (4) ROSALINDA (acute kidney injury) Comment: Secondary to sepsis Improved urine output and Cr continues to decline Serum HCO3 continues to rise to near normal without additional supp Mcgovern out (5) Atrial fibrillation Comment: Secondary to sepsis Converted to sinus rhythm No anticoagulation at this time (6) Acute on chronic systolic heart failure Comment: EF measured at 20-25% earlier in hospital stay Repeat echo shows full resolution with LVEF up to 55-60% (7) Hypertension Comment: Restarted home amlodipine Persistently hypertensive, started hydralazine yesterday, titrate up Holding PILAR-I d/t ROSALINDA (8) Full code status Comment: SQ heparin (9) DVT prophylaxis Status and Disposition: Inpatient. Anticipate she will be read for dc to [facility] tomorrow with supp O2
[2017-04-17] MEDS: Insulin GLARGINE(*) 1 UNITS UNIT SUBCUT SCH (13:49)
[2017-04-17] MEDS: Atorvastatin* 40 MG TAB PO SCH (20:14)
[2017-04-18] MEDS: Heparin VIAL(*) 5000 UNITS/ML VIAL (FIVE THOUSAND) SUBCUT SCH ×3 (01:38→18:18)
[2017-04-18 05:44] LABS: Hematocrit 23 % (35-47); Hemoglobin 7.6 g/dl (12.0-16.0); Mean Corpuscular HGB Conc 34 g/dl (31-36); Mean Corpuscular Hemoglobin 31 pg (27-31); Mean Corpuscular Volume 92 fL (80-97); Mean Platelet Volume 8 um3 (7.4-10.4); Red Blood Count 2.47 10^6/ul (4.0-5.4); Red Cell Distribution Width 15 % (10.5-15)
[2017-04-18] MEDS: ZOSYN 3.375 GM Q12H per EXTENDED INFUSION IVPB SCH ×2 (05:49)
[2017-04-18] MEDS: Omeprazole CAP* 20 MG PO SCH (05:49)
[2017-04-18 06:03] LABS: Calcium 9.5 mg/dL (8.6-10.3); EGFR African American 26.3 (>60); EGFR Non-African American 20.5 (>60); Potassium 4.9 mmol/L (3.5-5.0)
[2017-04-18] MEDS: Insulin REGULAR(*) 1 UNITS UNIT SUBCUT SCH ×4 (08:44→23:48)
[2017-04-18] MEDS: hydrALAZINE TAB* 10 MG PO SCH ×3 (08:46→23:48)
[2017-04-18] MEDS: Calcium Acetate CAP* 667 MG PO SCH ×3 (08:46→23:47)
[2017-04-18] MEDS: Aspirin EC Low Dose* 81 MG TAB.EC PO SCH (08:46)
[2017-04-18] MEDS: Carvedilol TAB* 3.125 MG PO SCH ×2 (08:46→23:47)
[2017-04-18] MEDS: Sodium Citrate/Citric Acid* 15 ML UDC PO SCH ×3 (08:46→23:48)
[2017-04-18] MEDS: amLODIPine TAB* 5 MG PO SCH (08:46)
[2017-04-18] MEDS ORDERED: Furosemide IV* 10 MG/ML 2 ML VIAL (20 MG) IV ONE ×2 (08:53→15:00)
[2017-04-18] MEDS: Albuterol/Ipratropium NEB.SOL* Albuterol 2.5 MG/Ipratropium 0.5 MG 3 ML INH PRN (08:55)
[2017-04-18 08:59] LABS: FIO2 2
[2017-04-18 09:07] LABS: PCO2 Arterial 53 mmHg (35-45)
--- NOTE | 2017-04-18 10:05 | RAD ---
HISTORY: Shortness of breath COMPARISONS: April 15, 2017 VIEWS: 1: frontal portable view of the chest at 9:20 AM FINDINGS: LINES AND TUBES: None. CARDIOMEDIASTINAL SILHOUETTE: The cardiac silhouette is enlarged. The cardiomediastinal silhouette is otherwise normal for portable technique. PLEURA: There are small bilateral pleural effusions LUNG PARENCHYMA: There is a diffuse reticular pattern with indistinct pulmonary vessels. ABDOMEN: The upper abdomen is clear. There is no subphrenic gas. BONES AND SOFT TISSUES: No bone or soft tissue abnormalities are noted. IMPRESSION: CARDIOMEGALY WITH PULMONARY INTERSTITIAL EDEMA AND SMALL BILATERAL PLEURAL EFFUSIONS
--- NOTE | 2017-04-18 10:06 | PN ---
Subjective Date of Service: 04/18/17 Interval History: Patient was tachypneic and slightly confused this am. Concern from RT, but upon evaluation she did not appear significantly different than the last few days. No vital sign changes. Patient complains of mild SOB unchanged from the last few days. No c/o abd pain, n/v, CP or palpitations. Objective Active Medications: Acetaminophen (Tylenol Tab*) 650 mg PO Q6H PRN PRN Reason: PAIN Last Admin: 04/14/17 09:18 Dose: 650 mg Albuterol/Ipratropium (Duoneb (Albuterol 2.5 Mg/Ipratropium 0.5 Mg)) 1 neb INH Q4H PRN PRN Reason: SOB/WHEEZING Last Admin: 04/18/17 08:55 Dose: 1 neb Amlodipine Besylate (Norvasc Tab*) 10 mg PO DAILY [facility] Last Admin: 04/18/17 08:46 Dose: 10 mg Aspirin (Aspirin Ec Low Dose*) 81 mg PO DAILY [facility] Last Admin: 04/18/17 08:46 Dose: 81 mg Atorvastatin Calcium (Lipitor*) 40 mg PO 2100 [facility] Last Admin: 04/17/17 20:14 Dose: 40 mg Calcium Acetate (Phoslo Cap*) 1,334 mg PO TID [facility] Last Admin: 04/18/17 08:46 Dose: 1,334 mg Carvedilol (Coreg Tab*) 3.125 mg PO BID [facility] Last Admin: 04/18/17 08:46 Dose: 3.125 mg Citric Acid/Sodium Citrate (Bicitra*) 15 ml PO TID [facility] Last Admin: 04/18/17 08:46 Dose: 15 ml Dextrose (D50w Syringe 50 Ml*) 12.5 gm IV PUSH .FOR FS < 60 - SS PRN PRN Reason: FS < 60 Last Admin: 04/12/17 06:32 Dose: 12.5 gm Furosemide (Lasix Iv*) 20 mg IV ONCE ONE Stop: 04/18/17 15:01 Heparin Sodium (Porcine) (Heparin Vial(*)) 5,000 units SUBCUT Q8H [facility] Last Admin: 04/18/17 01:38 Dose: 5,000 units Hydralazine HCl (Apresoline Tab*) 15 mg PO TID [facility] Last Admin: 04/18/17 08:46 Dose: 15 mg Piperacillin Sod/Tazobactam (Sod 3.375 gm/ Sodium Chloride) 100 mls @ 25 mls/ hr IVPB Q12H [facility] Last Admin: 04/18/17 05:49 Dose: 25 mls/hr Insulin Glargine (Lantus(*)) 40 units SUBCUT Q24H [facility] Last Admin: 04/17/17 13:49 Dose: 40 unit Insulin Human Regular (Insulin Regular(*)) 0 units SUBCUT FS ACHS ICU [facility] PRN Reason: Protocol Last Admin: 04/18/17 08:44 Dose: 2 units Lidocaine HCl (Xylocaine 2 % Jelly*) 0 ml TOPICAL TID PRN PRN Reason: PAIN Last Admin: 04/17/17 08:21 Dose: 20 ml Omeprazole (Prilosec Cap*) 20 mg PO 0600 [facility] Last Admin: 04/18/17 05:49 Dose: 20 mg Ondansetron HCl (Zofran Inj*) 4 mg IV Q6H PRN PRN Reason: NAUSEA Last Admin: 04/10/17 12:03 Dose: 4 mg Pharmacy Consult (Zosyn Per Pharmacy*) 1 note FOLLOW UP .ZOSYN PER PHARMACY [facility] Vital Signs: Temp Pulse Resp BP Pulse Ox 97.4 F 79 18 190/72 93 04/18/17 07:34 04/18/17 08:57 04/18/17 08:57 04/18/17 08:59 04/18/17 08:57 Oxygen Devices in Use Now: Nasal Cannula Appearance: Chronically ill and mildly tachypneic, alert and able to complete full sentences Neck: NL Appearance and Movements; NL JVP Respiratory: Symmetrical Chest Expansion and Respiratory Effort, - - few rhonchi Cardiovascular: NL Sounds; No Murmurs; No JVD, RRR Abdominal: NL Sounds; No Tenderness; No Distention Extremities: No Edema Skin: No Rash or Ulcers Neurological: Alert and Oriented x 3 Result Diagrams: 04/18/17 05:03 04/18/17 05:03 Microbiology and Other Data: Microbiology 04/06/17 10:30 Stool Occult Blood ([facility]) - Final Stool 04/05/17 14:00 Legionella Urinary Antigen - Final Urine Negative Legionella Streptococcus pneumoniae Ag Screen - Final Negative S. pneumo Antigen 04/05/17 13:15 Nasal Screen MRSA (PCR)([facility]) - Final Nasal Mrsa Negative Diagnostic Imaging: Echo 04/15 - repeat for eval of LV fxn shows improvement to 55-60% CXR - mild PVC, no sig change from 04/15 Assess/Plan/Problems-Billing Assessment: This is a 72 yo female with DM, HTN, obesity and depression who was admitted with severe sepsis found to secondary to ESBL EColi complicated by ROSALINDA, acute HF and afib requiring a prolonged ICU stay, now transferred to medical telemetry unit. - Patient Problems (1) Septicemia Comment: Improving ESBL EColi of urinary source Completed Zosyn (2) Cough Comment: Some cough and SOB but persistent over the last few days No sig improvement with Lasix and use of flutter valve Question whether anemia is playing a role Patient is agreeable to 1U PRBCs (3) Diabetes Comment: Decent glycemic control Cont Lantus (4) ROSALINDA (acute kidney injury) Comment: Secondary to sepsis Improved urine output and Cr continues to decline Acidosis resolved (5) Atrial fibrillation Comment: Secondary to sepsis Converted to sinus rhythm No anticoagulation at this time (6) Acute on chronic systolic heart failure Comment: EF measured at 20-25% earlier in hospital stay Repeat echo shows full resolution with LVEF up to 55-60% (7) Hypertension Comment: Restarted home amlodipine Persistently hypertensive, started hydralazine Holding PILAR-I d/t ROSALINDA (8) Full code status Comment: SQ heparin (9) DVT prophylaxis Status and Disposition: Inpatient. Anticipate she will be read for dc to [facility] with supp O2 within the next day or so
[2017-04-18] MEDS: Insulin GLARGINE(*) 1 UNITS UNIT SUBCUT SCH (13:50)
[2017-04-18 19:58] LABS: Hematocrit 26 % (35-47); Hemoglobin 8.5 g/dl (12.0-16.0)
[2017-04-18 20:00] LABS: Comments Flag Yes
[2017-04-18] MEDS: Atorvastatin* 40 MG TAB PO SCH (23:47)
[2017-04-19] MEDS: Heparin VIAL(*) 5000 UNITS/ML VIAL (FIVE THOUSAND) SUBCUT SCH ×3 (03:42→19:51)
[2017-04-19] MEDS: Omeprazole CAP* 20 MG PO SCH (05:54)
[2017-04-19] MEDS: Insulin REGULAR(*) 1 UNITS UNIT SUBCUT SCH ×4 (08:26→21:45)
[2017-04-19] MEDS: Aspirin EC Low Dose* 81 MG TAB.EC PO SCH (08:27)
[2017-04-19] MEDS: hydrALAZINE TAB* 10 MG PO SCH ×3 (08:27→21:44)
[2017-04-19] MEDS: Calcium Acetate CAP* 667 MG PO SCH ×3 (08:27→21:45)
[2017-04-19] MEDS: Carvedilol TAB* 3.125 MG PO SCH ×2 (08:27→21:45)
[2017-04-19] MEDS: amLODIPine TAB* 5 MG PO SCH (08:27)
[2017-04-19] MEDS: Sodium Citrate/Citric Acid* 15 ML UDC PO SCH ×3 (08:28→21:44)
[2017-04-19 11:00] LABS: Hematocrit 28 % (35-47); Mean Corpuscular HGB Conc 33 g/dl (31-36); Mean Corpuscular Hemoglobin 31 pg (27-31); Mean Corpuscular Volume 94 fL (80-97); Mean Platelet Volume 8 um3 (7.4-10.4); Red Blood Count 2.95 10^6/ul (4.0-5.4); Red Cell Distribution Width 16 % (10.5-15); White Blood Count 13.9 10^3/ul (3.5-10.8)
[2017-04-19 11:23] LABS: BUN/Creatinine Ratio 19.6 (8-20); Calcium 9.6 mg/dL (8.6-10.3); EGFR African American 31.6 (>60); EGFR Non-African American 24.6 (>60); Potassium 4.8 mmol/L (3.5-5.0)
[2017-04-19 11:38] LABS: C Reactive Protein 62.02 mg/L (< 5.00)
--- NOTE | 2017-04-19 12:24 | PN ---
Subjective Date of Service: 04/19/17 Interval History: Patient received 2U PRBCs yesterday, 1 unit was only partial as it before being completed. Patient reports some mild improvement in dyspnea but still appears to have increased WOB. Her cough is dry. Reports increased fatigue today. Objective Active Medications: Acetaminophen (Tylenol Tab*) 650 mg PO Q6H PRN PRN Reason: PAIN Last Admin: 04/14/17 09:18 Dose: 650 mg Albuterol/Ipratropium (Duoneb (Albuterol 2.5 Mg/Ipratropium 0.5 Mg)) 1 neb INH Q4H PRN PRN Reason: SOB/WHEEZING Last Admin: 04/18/17 08:55 Dose: 1 neb Amlodipine Besylate (Norvasc Tab*) 10 mg PO DAILY [facility] Last Admin: 04/19/17 08:27 Dose: 10 mg Aspirin (Aspirin Ec Low Dose*) 81 mg PO DAILY [facility] Last Admin: 04/19/17 08:27 Dose: 81 mg Atorvastatin Calcium (Lipitor*) 40 mg PO 2100 [facility] Last Admin: 04/18/17 23:47 Dose: 40 mg Calcium Acetate (Phoslo Cap*) 1,334 mg PO TID [facility] Last Admin: 04/19/17 08:27 Dose: 1,334 mg Carvedilol (Coreg Tab*) 3.125 mg PO BID [facility] Last Admin: 04/19/17 08:27 Dose: 3.125 mg Citric Acid/Sodium Citrate (Bicitra*) 15 ml PO TID [facility] Last Admin: 04/19/17 08:28 Dose: 15 ml Dextrose (D50w Syringe 50 Ml*) 12.5 gm IV PUSH .FOR FS < 60 - SS PRN PRN Reason: FS < 60 Last Admin: 04/12/17 06:32 Dose: 12.5 gm Heparin Sodium (Porcine) (Heparin Vial(*)) 5,000 units SUBCUT Q8H [facility] Last Admin: 04/19/17 11:02 Dose: 5,000 units Hydralazine HCl (Apresoline Tab*) 15 mg PO TID [facility] Last Admin: 04/19/17 08:27 Dose: 15 mg Cefepime HCl 1 gm/ Sodium (Chloride) 50 mls @ 100 mls/hr IVPB Q12H [facility] Vancomycin HCl 750 mg/ Sodium (Chloride) 250 mls @ 166.667 mls/hr IVPB ONCE [facility] PRN Reason: Protocol Stop: 04/19/17 23:59 Insulin Glargine (Lantus(*)) 40 units SUBCUT Q24H [facility] Last Admin: 04/18/17 13:50 Dose: 40 unit Insulin Human Regular (Insulin Regular(*)) 0 units SUBCUT FS ACHS [facility] PRN Reason: Protocol Last Admin: 04/19/17 08:26 Dose: 4 units Lidocaine HCl (Xylocaine 2 % Jelly*) 0 ml TOPICAL TID PRN PRN Reason: PAIN Last Admin: 04/17/17 08:21 Dose: 20 ml Omeprazole (Prilosec Cap*) 20 mg PO 0600 [facility] Last Admin: 04/19/17 05:54 Dose: 20 mg Ondansetron HCl (Zofran Inj*) 4 mg IV Q6H PRN PRN Reason: NAUSEA Last Admin: 04/10/17 12:03 Dose: 4 mg Vital Signs: Temp Pulse Resp BP Pulse Ox 97.4 F 82 22 161/75 94 04/19/17 07:52 04/19/17 07:52 04/19/17 07:56 04/19/17 07:52 04/19/17 07:56 Oxygen Devices in Use Now: Nasal Cannula Appearance: Elderly female who is lethargic with some increased WOB Respiratory: Symmetrical Chest Expansion and Respiratory Effort, Clear to Auscultation Cardiovascular: NL Sounds; No Murmurs; No JVD, RRR Abdominal: NL Sounds; No Tenderness; No Distention Extremities: No Edema Skin: No Rash or Ulcers Neurological: Alert and Oriented x 3 Result Diagrams: 04/19/17 09:25 04/19/17 09:25 Microbiology and Other Data: Microbiology 04/06/17 10:30 Stool Occult Blood ([facility]) - Final Stool 04/05/17 14:00 Legionella Urinary Antigen - Final Urine Negative Legionella Streptococcus pneumoniae Ag Screen - Final Negative S. pneumo Antigen 04/05/17 13:15 Nasal Screen MRSA (PCR)([facility]) - Final Nasal Mrsa Negative Diagnostic Imaging: Echo 04/15 - repeat for eval of LV fxn shows improvement to 55-60% CXR - mild PVC, no sig change from 04/15 CT chest - pend US LE Doppler - pend Assess/Plan/Problems-Billing Assessment: This is a 72 yo female with DM, HTN, obesity and depression who was admitted with severe sepsis found to secondary to ESBL EColi complicated by ROSALINDA, acute HF and afib requiring a prolonged ICU stay, now transferred to medical telemetry unit. - Patient Problems (1) Septicemia Comment: Improving ESBL EColi of urinary source Completed Zosyn (2) Leukocytosis Comment: Noted worsening leukocytosis today, 90% neutrophils which is concerning for new or worsening infection Patient has increased WOB and slight cough, but no infiltrate on recent CXR Will plan to re-culture including blood, urine and sputum Obtain CT of chest to help further define presence of an infiltrate Start empiric broad spectrum coverage for hospital acquired pathogens with Vanco and Cefepime until culture results return (3) Cough Comment: Some cough and SOB but persistent over the last few days No sig improvement with Lasix and use of flutter valve Transfused 2U PRBCs yesterday without significant change No hypoxia Ordered LE doppler to eval for DVT as PE would be on the differential list, Ddimer would not be helpful with recent acute illness and CTA contraindicated with recovering renal fxn from recent acute insult from sepsis CT without contrast pending of chest Empiric treatment with Cefepime/Vanco for possible HAP (4) Diabetes Comment: Decent glycemic control Cont Lantus (5) ROSALINDA (acute kidney injury) Comment: ATN secondary to sepsis Improved urine output and Cr continues to decline Acidosis resolved (6) Atrial fibrillation Comment: Secondary to sepsis Converted to sinus rhythm No anticoagulation at this time (7) Acute on chronic systolic heart failure Comment: EF measured at 20-25% earlier in hospital stay Repeat echo shows full resolution with LVEF up to 55-60% (8) Hypertension Comment: Restarted home amlodipine Persistently hypertensive, started hydralazine Holding PILAR-I d/t ROSALINDA (9) Full code status Comment: SQ heparin (10) DVT prophylaxis Status and Disposition: Inpatient. Delayed discharge at this time for repeat cultures due to persistent tachypnea and worsening leukocytosis. Unsure of dc timing at this moment
[2017-04-19] MEDS: Cefepime(*) 1 GM in NS 0.9% 50 ML* 50 ML IVPB SCH ×2 (12:32→16:42)
--- NOTE | 2017-04-19 12:54 | RAD ---
INDICATION: Shortness of breath. Assess for DVT. COMPARISON: No relevant prior exams available on the [facility] PACS for comparison. TECHNIQUE: Chen scale, color Doppler, and spectral analysis of the deep veins of the BILATERAL lower extremities. Vessel compression, phasicity, and augmentation assessed. REPORT: Large body habitus limits acoustic window. The RIGHT common femoral, great saphenous, profunda femoral, femoral, popliteal, peroneal, and posterior tibial veins are patent. The LEFT common femoral, great saphenous, profunda femoral, femoral, popliteal, peroneal, and posterior tibial veins are patent. IMPRESSION: No evidence for RIGHT or LEFT lower extremity DVT.
[2017-04-19] MEDS ORDERED: Vancomycin(*) 750 MG in NS 0.9% 250 ML* 250 ML IVPB ONE (13:00)
--- NOTE | 2017-04-19 14:53 | RAD ---
INDICATION: Evaluate for pneumonia. Pulmonary edema. COMPARISON: Chest x-ray April 18, 2017 TECHNIQUE: Noncontrast axial source images were obtained from the thoracic inlet to the hemidiaphragms. Coronal and sagittal reconstructed images were acquired. The visualized neck to include the thyroid appear normal. Chest wall: There is kyphoscoliosis with spondylitic change of the thoracic spine. There is a retrosternal mass with calcification. This is believed to be contiguous with the thyroid is likely related to a goiter. This can be evaluated with follow-up thyroid sonography. There is no supraclavicular, infraclavicular, or axillary lymphadenopathy. Lungs : There are basilar consolidative changes partially due to compression atelectasis. There are nodular opacities in the mid and upper lung moreno bilaterally which are nonspecific. This could be related to an acute pneumonitis but neoplasia cannot be excluded. Suggest follow-up. Cardiomediastinal structures: The heart is enlarged. There is no pericardial effusion. There is no evidence of aortic aneurysm or dissection. The pulmonary vessels appear prominent. There is suspected pulmonary interstitial and early alveolar edema. There is no mediastinal or hilar adenopathy. The esophagus appears normal. Pleura : Large bilateral pleural effusions. Other: There are no acute or significant CT findings of the visualized upper abdomen. IMPRESSION: 1. Large anterior mediastinal mass with retrosternal extension likely related to a goiter. Suggest follow-up sonography. 2. Patchy nodular opacities in both mid upper lung moreno. Infectious and neoplastic etiologies are considerations. 3. Cardiomegaly with pulmonary interstitial edema. 4. Bibasilar consolidative changes likely compression atelectasis. 5. Large bilateral pleural effusions
[2017-04-19] MEDS: Furosemide IV* 10 MG/ML VIAL (40 MG) IV SCH (16:42)
[2017-04-19] MEDS: Insulin GLARGINE(*) 1 UNITS UNIT SUBCUT SCH (17:03)
[2017-04-19] MEDS ORDERED: Vancomycin per Pharmacy* NOTE FOLLOW UP PRN (21:32)
[2017-04-19] MEDS: Atorvastatin* 40 MG TAB PO SCH (21:44)
[2017-04-20] MEDS: Heparin VIAL(*) 5000 UNITS/ML VIAL (FIVE THOUSAND) SUBCUT SCH ×3 (02:31→18:42)
[2017-04-20] MEDS: Omeprazole CAP* 20 MG PO SCH (05:33)
[2017-04-20] MEDS: hydrALAZINE TAB* 10 MG PO SCH ×3 (09:00→21:50)
[2017-04-20] MEDS: Aspirin EC Low Dose* 81 MG TAB.EC PO SCH (09:00)
[2017-04-20] MEDS: Carvedilol TAB* 3.125 MG PO SCH ×2 (09:00→21:50)
[2017-04-20] MEDS: amLODIPine TAB* 5 MG PO SCH (09:00)
[2017-04-20] MEDS: Calcium Acetate CAP* 667 MG PO SCH ×3 (09:00→21:50)
[2017-04-20] MEDS: Sodium Citrate/Citric Acid* 15 ML UDC PO SCH ×3 (09:00→21:51)
[2017-04-20] MEDS: Insulin REGULAR(*) 1 UNITS UNIT SUBCUT SCH ×4 (09:01→21:50)
[2017-04-20] MEDS: Furosemide IV* 10 MG/ML VIAL (40 MG) IV SCH (09:01)
[2017-04-20] MEDS: Cefepime(*) 1 GM in NS 0.9% 50 ML* 50 ML IVPB SCH (12:21)
[2017-04-20] MEDS: Insulin GLARGINE(*) 1 UNITS UNIT SUBCUT SCH (14:04)
--- NOTE | 2017-04-20 16:10 | PN ---
Subjective Date of Service: 04/20/17 Interval History: Patient seen and examined. Denies fever, chills, chest discomfort, N/V/D. Pt states that her shortness of breath is improving, but not yet back to her baseline. Tele:Sinus arrhythmia, rate 70-90's. Family History: Unchanged from Admission Social History: Unchanged from Admission Past Medical History: Unchanged from Admission Objective Active Medications: Acetaminophen (Tylenol Tab*) 650 mg PO Q6H PRN Reason: PAIN Albuterol/Ipratropium (Duoneb (Albuterol 2.5 Mg/Ipratropium 0.5 Mg)) 1 neb INH Q4H PRN Reason: SOB/WHEEZING Amlodipine Besylate (Norvasc Tab*) 10 mg PO DAILY [facility] Aspirin (Aspirin Ec Low Dose*) 81 mg PO DAILY [facility] Atorvastatin Calcium (Lipitor*) 40 mg PO 2100 [facility] Calcium Acetate (Phoslo Cap*) 1,334 mg PO TID [facility] Carvedilol (Coreg Tab*) 3.125 mg PO BID [facility] Citric Acid/Sodium Citrate (Bicitra*) 15 ml PO TID [facility] Dextrose (D50w Syringe 50 Ml*) 12.5 gm IV PUSH .FOR FS < 60 - SS PRN Reason: FS < 60 Furosemide (Lasix Iv*) 40 mg IV DAILY [facility] Heparin Sodium (Porcine) (Heparin Vial(*)) 5,000 units SUBCUT Q8H [facility] Hydralazine HCl (Apresoline Tab*) 15 mg PO TID [facility] Cefepime HCl 1 gm/ Sodium (Chloride) 50 mls @ 100 mls/hr IVPB Q24H [facility] Vancomycin HCl 1,250 mg/ (Sodium Chloride) 250 mls @ 166.667 mls/hr IVPB Q24H [facility] Insulin Glargine (Lantus(*)) 50 units SUBCUT Q24H [facility] Insulin Human Regular (Insulin Regular(*)) 0 units SUBCUT FS ACHS ICU [facility] Lidocaine HCl (Xylocaine 2 % Jelly*) 0 ml TOPICAL TID PRN Reason: PAIN Omeprazole (Prilosec Cap*) 20 mg PO 0600 [facility] Ondansetron HCl (Zofran Inj*) 4 mg IV Q6H PRN Reason: NAUSEA Pharmacy Consult (Vancomycin Per Pharmacy*) 1 note FOLLOW UP . PRN Reason: PER PROTOCOL Pharmacy Profile Note (Vancomycin Trough Check) 1 note FOLLOW UP 1929 ONE Stop : 04/22/17 19:31 Vital Signs 04/19/17 04/19/17 04/20/17 20:00 20:06 00:18 Temperature 97.3 F 96.9 F Pulse Rate 70 66 Respiratory 22 22 24 Rate Blood Pressure 169/66 136/54 (mmHg) O2 Sat by Pulse 97 98 Oximetry 04/20/17 04/20/17 04/20/17 03:47 07:29 08:00 Temperature 97.7 F 97.4 F Pulse Rate 72 75 Respiratory 24 22 24 Rate Blood Pressure 153/56 167/67 (mmHg) O2 Sat by Pulse 96 96 99 Oximetry 04/20/17 04/20/17 08:35 10:11 Temperature Pulse Rate 72 70 Respiratory 16 Rate Blood Pressure 156/59 (mmHg) O2 Sat by Pulse 99 95 Oximetry Oxygen Devices in Use Now: Nasal Cannula - 3L Appearance: NAD, laying in bed Ears/Nose/Mouth/Throat: Mucous Membranes Moist Respiratory: Symmetrical Chest Expansion and Respiratory Effort, Clear to Auscultation - upper lobes and diminished in the bases Cardiovascular: NL Sounds; No Murmurs; No JVD Abdominal: NL Sounds; No Tenderness; No Distention Extremities: No Edema Skin: No Rash or Ulcers Lines/Tubes/Other Access: Clean, Dry and Intact Peripheral IV - site benign Nutrition: Taking PO's Result Diagrams: 04/19/17 09:25 04/19/17 09:25 Microbiology and Other Data: Microbiology 04/06/17 10:30 Stool Occult Blood ([facility]) - Final Stool 04/05/17 14:00 Legionella Urinary Antigen - Final Urine Negative Legionella Streptococcus pneumoniae Ag Screen - Final Negative S. pneumo Antigen 04/05/17 13:15 Nasal Screen MRSA (PCR)([facility]) - Final Nasal Mrsa Negative Diagnostic Imaging: Echo 04/15 - repeat for eval of LV fxn shows improvement to 55-60% CXR - mild PVC, no sig change from 04/15 CT chest - IMPRESSION: Large anterior mediastinal mass with retrosternal extension likely related to a goiter. Suggest follow-up sonography. Patchy nodular opacities in both mid upper lung moreno. Infectious and neoplastic etiologies are considerations. Cardiomegaly with pulmonary interstitial edema. Bibasilar consolidative changes likely compression atelectasis. Large bilateral pleural effusions US LE Doppler - IMPRESSION: No evidence for RIGHT or LEFT lower extremity DVT. Assess/Plan/Problems-Billing Assessment: Ms. Romero is a 72 yo female with DM, HTN, obesity and depression who was admitted with severe sepsis found to secondary to ESBL EColi complicated by ROSALINDA , acute HF and afib requiring a prolonged ICU stay, now transferred to medical telemetry unit. - Patient Problems (1) Septicemia Code(s): A41.9 - SEPSIS, UNSPECIFIED ORGANISM SNOMED Code(s): 411945189 Comment: - Improving - ESBL EColi of urinary source - Completed 14 day course of Zosyn (2) Leukocytosis Code(s): D72.829 - ELEVATED WHITE BLOOD CELL COUNT, UNSPECIFIED SNOMED Code(s) : 805847181 Comment: - Noted worsening leukocytosis yesterday, 90% neutrophils which is concerning for new or worsening infection - Patient has increased WOB and slight cough, but no infiltrate on recent CXR - Blood cultures - pending - Urine culture pending - Chest CT - Patchy nodular opacities in both mid upper lung moreno. Infectious and neoplastic etiologies are considerations. Cardiomegaly with pulmonary interstitial edema. Bibasilar consolidative changes likely compression atelectasis. Large bilateral pleural effusions - Continue broad spectrum coverage for hospital acquired pathogens with Vanco and Cefepime - Labs still pending for today (3) Cough Code(s): R05 - COUGH SNOMED Code(s): 68761165 Comment: - Some cough and SOB but persistent over the last few days - No sig improvement with Lasix and use of flutter valve - Transfused 2U PRBCs 04/18 without significant change - No hypoxia - LE doppler negative, eval for DVT as PE would be on the differential list, Ddimer would not be helpful with recent acute illness and CTA contraindicated with recovering renal fxn from recent acute insult from sepsis - CT chest - Patchy nodular opacities in both mid upper lung moreno. Infectious and neoplastic etiologies are considerations. Cardiomegaly with pulmonary interstitial edema. Bibasilar consolidative changes likely compression atelectasis. Large bilateral pleural effusions - Continue empiric treatment with Cefepime/Vanco for possible HAP (4) Diabetes Code(s): E11.9 - TYPE 2 DIABETES MELLITUS WITHOUT COMPLICATIONS SNOMED Code(s) : 73615755 Comment: - Glucose 200-300's - Continue Lantus and Regular SS (5) ROSALINDA (acute kidney injury) Code(s): N17.9 - ACUTE KIDNEY FAILURE, UNSPECIFIED SNOMED Code(s): 35185861 Comment: - ATN secondary to sepsis - Improved urine output and Cr continues to decline - Acidosis resolved (6) Atrial fibrillation Code(s): I48.91 - UNSPECIFIED ATRIAL FIBRILLATION SNOMED Code(s): 64939205 Comment: - Secondary to sepsis - Converted to sinus rhythm - No anticoagulation at this time (7) Acute on chronic systolic heart failure Code(s): I50.23 - ACUTE ON CHRONIC SYSTOLIC (CONGESTIVE) HEART FAILURE SNOMED Code(s): 704827232 Comment: - EF measured at 20-25% earlier in hospital stay - Repeat echo shows full resolution with LVEF up to 55-60% - Continue daily weights and strict I+O's (8) Thyroid nodule Code(s): E04.1 - NONTOXIC SINGLE THYROID NODULE SNOMED Code(s): 902174269 Comment: - Large anterior mediastinal mass with retrosternal extension likely related to a goiter. Suggest follow-up sonography outpatient. (9) Hypertension Code(s): I10 - ESSENTIAL (PRIMARY) HYPERTENSION SNOMED Code(s): 10338887 Comment: - SBP 130-160's, persistently hypertensive - Continue home amlodipine and hydralazine - Holding PILAR-I d/t ROSALINDA (10) DVT prophylaxis Code(s): YOA6604 - SNOMED Code(s): 500454217 Comment: - Heparin SQ (11) Full code status Code(s): Z78.9 - OTHER SPECIFIED HEALTH STATUS SNOMED Code(s): 234542448 Status and Disposition: Inpatient. Delayed discharge at this time for repeat cultures due to persistent tachypnea and worsening leukocytosis. Plan to discharge to SNF when medically stable for discharge.
[2017-04-20] MEDS: Vancomycin(*) 1,250 MG in NS 0.9% 250 ML* 250 ML IVPB SCH (19:36)
[2017-04-20] MEDS: Atorvastatin* 40 MG TAB PO SCH (21:50)
[2017-04-20] MEDS: Nystatin TOP POWDER* 15 GM BTL TOPICAL SCH (21:51)
[2017-04-21] MEDS: Heparin VIAL(*) 5000 UNITS/ML VIAL (FIVE THOUSAND) SUBCUT SCH ×3 (01:35→18:30)
[2017-04-21 05:41] LABS: Hematocrit 27 % (35-47); Mean Corpuscular HGB Conc 33 g/dl (31-36); Mean Corpuscular Hemoglobin 31 pg (27-31); Mean Corpuscular Volume 93 fL (80-97); Mean Platelet Volume 8 um3 (7.4-10.4); Red Blood Count 2.94 10^6/ul (4.0-5.4); Red Cell Distribution Width 15 % (10.5-15); White Blood Count 9.5 10^3/ul (3.5-10.8)
[2017-04-21] MEDS: Omeprazole CAP* 20 MG PO SCH (05:48)
[2017-04-21 05:51] LABS: BUN/Creatinine Ratio 21.3 (8-20); C Reactive Protein 49.07 mg/L (< 5.00); Calcium 9.5 mg/dL (8.6-10.3); EGFR African American 35.9 (>60); EGFR Non-African American 27.9 (>60)
[2017-04-21] MEDS: Insulin REGULAR(*) 1 UNITS UNIT SUBCUT SCH ×4 (10:09→21:16)
[2017-04-21] MEDS: amLODIPine TAB* 5 MG PO SCH (10:12)
[2017-04-21] MEDS: Aspirin EC Low Dose* 81 MG TAB.EC PO SCH (10:13)
[2017-04-21] MEDS: Carvedilol TAB* 3.125 MG PO SCH ×2 (10:14→21:17)
[2017-04-21] MEDS: Calcium Acetate CAP* 667 MG PO SCH ×3 (10:15→21:16)
[2017-04-21] MEDS: hydrALAZINE TAB* 10 MG PO SCH ×3 (10:16→21:17)
[2017-04-21] MEDS: Acetaminophen TAB* 325 MG PO PRN (10:16)
[2017-04-21] MEDS: Sodium Citrate/Citric Acid* 15 ML UDC PO SCH ×2 (10:17→13:35)
[2017-04-21] MEDS: Nystatin TOP POWDER* 15 GM BTL TOPICAL SCH ×3 (10:19→21:22)
[2017-04-21] MEDS: Furosemide IV* 10 MG/ML VIAL (40 MG) IV SCH (10:19)
--- NOTE | 2017-04-21 11:20 | CONS ---
DATE OF CONSULTATION: 04/21/2017. REQUESTING PROVIDER: Judith Xie NP. CONSULTING SERVICE: Infectious Disease. REASON FOR CONSULTATION: Hypoxia, abnormal chest CT. IMPRESSION: 1. Acute hypoxemic respiratory failure, on supplemental oxygen. Does not have supplemental oxygen at home. She had had a cough and mild leukocytosis. CT of the chest was obtained that showed some bilateral upper lobe patchy opacities. She also has large bilateral pleural effusions. I think this is on the basis lyme overload and I think a pneumonia less likely. 2. Admitted with E. coli ESBL bacteremia secondary to E. coli ESBL urinary tract infection. She had ten days of Zosyn. Blood cultures cleared. She has been afebrile. Her CRP continues to improve. It was 400 on admission and is down to 50 today. 3. Status post right hip arthroplasty, asymptomatic. RECOMMENDATIONS: Will stop her IV antibiotic. Follow her CRP and respiratory symptoms off of them and with diuresis. HISTORY OF PRESENT ILLNESS: This 72-year-old woman was admitted after being found down and alert at her home in [place]. She was brought to [place] and then transferred here. She was found to have E. coli ESBL bacteremia. She was treated with Zosyn here. Her x-ray on admission on the 05 of April showed mild vascular congestion with interstitial edema. She has fluid resuscitation. She had a central line. She had a transthoracic echocardiogram that was unremarkable. She had a chest x-ray April 18 that showed cardiomegaly, pulmonary interstitial edema, and bilateral pleural effusions. She had developed a white blood cell count elevation on the which was 11 and then 14 on the . She had a CT scan done with findings as noted above. She started Vancomycin and Cefepime yesterday. She has ongoing 2 liter oxygen requirements saturating in the low 90s. She is getting diuresis. She has no fever. Her white count is 9000 today. She has an ongoing nonproductive. She does not feel short of breath at rest. She had not been up and out of bed very much. She does not get short of breath getting to the chair. On admission, she had an acute kidney injury which has been resolved and was felt to be mostly related to ATN. Creatinine was down from 4 down to 1.5. She had blood transfusion of two units two days ago. PAST MEDICAL HISTORY: 1. Osteoarthritis, status post right hip arthroplasty. 2. Urinary incontinence. 3. Depression. MEDICATIONS: Tylenol, Albuterol inhaler, Lipitor, Coreg, Lasix 40 mg daily, insulin Glargine, Heparin subcutaneous injection, Omeprazole, Vancomycin, Cefepime 1 gm daily. ALLERGIES: No known drug allergies. FAMILY HISTORY: Brother with diabetes, no coronary disease in the family. SOCIAL HISTORY: She lives with her , they have four children. She has not smoked. REVIEW OF SYSTEMS: All negative to a full review of systems, except as noted above. PHYSICAL EXAM: General: She is awake and not in distress. Vital Signs: Temperature 36.4, heart rate 80, respiratory rate 16, blood pressure 170/57, oxygen saturation 92 percent on two liters. HEENT: There is conjunctival hemorrhage, oropharynx without lesions. Neck: Supple. Nontender. Lymph Nodes : There is no cervical, supraclavicular, inguinal, axillary, or epitrochlear lymphadenopathy. Heart: Regular rate and rhythm without murmurs, rubs or gallops. Lungs: There are decreased breath sounds in the bases bilaterally without wheezes, rales or rhonchi. Abdomen: Soft, nontender, nondistended. There are bowel sounds present. Skin: There is no rash or splinter hemorrhage. There is mild erythema in the medial buttocks bilaterally. Musculoskeletal: There is no spine tenderness to palpation or joint synovitis. Neurologic: She is oriented times three, follows all commands and moves all extremities. LABORATORY DATA: White blood cell 9.5, hemoglobin 9, platelets 138; creatinine 1.8, CRP 50. Please see impression and recommendations outlined above which I have discussed with Judith Xie NP. Thank you for asking me to see Ms. Romero in consultation. [id number]/CPS #: [id number] RUBI
[2017-04-21] MEDS: Insulin GLARGINE(*) 1 UNITS UNIT SUBCUT SCH (13:37)
--- NOTE | 2017-04-21 18:31 | PN ---
Subjective Date of Service: 04/21/17 Interval History: Patient seen and examined at bedside. Pt states that she continues to have shortness of breath and generalized weakness. Denies fever, chills, chest discomfort, N/V/D. Pt reports that she has had bowel and urinary INC for many years and finds this very frustrating. Pt also is discouraged and feels like she will not get better. Pt states that she is unable to lay flat due to increased dyspnea. Discussed with Pt and daughter about options such as rehab vs Palliative care, but I don't feel she has any dx to qualify her for Hospice. They declined a palliative care consult at this time. Family History: Unchanged from Admission Social History: Unchanged from Admission Past Medical History: Unchanged from Admission Objective Active Medications: Acetaminophen (Tylenol Tab*) 650 mg PO Q6H PRN Reason: PAIN Albuterol/Ipratropium (Duoneb (Albuterol 2.5 Mg/Ipratropium 0.5 Mg)) 1 neb INH Q4H PRN Reason: SOB/WHEEZING Amlodipine Besylate (Norvasc Tab*) 10 mg PO DAILY [facility] Aspirin (Aspirin Ec Low Dose*) 81 mg PO DAILY [facility] Atorvastatin Calcium (Lipitor*) 40 mg PO 2100 [facility] Calcium Acetate (Phoslo Cap*) 1,334 mg PO TID [facility] Carvedilol (Coreg Tab*) 3.125 mg PO BID [facility] Citric Acid/Sodium Citrate (Bicitra*) 15 ml PO TID [facility] Dextrose (D50w Syringe 50 Ml*) 12.5 gm IV PUSH .FOR FS < 60 - SS PRN Reason: FS < 60 Furosemide (Lasix Iv*) 40 mg IV DAILY [facility] Heparin Sodium (Porcine) (Heparin Vial(*)) 5,000 units SUBCUT Q8H [facility] Hydralazine HCl (Apresoline Tab*) 15 mg PO TID [facility] Insulin Glargine (Lantus(*)) 50 units SUBCUT Q24H [facility] Insulin Human Regular (Insulin Regular(*)) 0 units SUBCUT FS ACHS ICU [facility] Lidocaine HCl (Xylocaine 2 % Jelly*) 0 ml TOPICAL TID PRN Reason: PAIN Nystatin (Nystatin Top Powder*) 1 applic TOPICAL TID [facility] Omeprazole (Prilosec Cap*) 20 mg PO 0600 [facility] Ondansetron HCl (Zofran Inj*) 4 mg IV Q6H PRN Reason: NAUSEA Vital Signs 04/20/17 04/20/17 04/20/17 19:58 20:00 22:00 Temperature 97.5 F Pulse Rate 76 Respiratory 16 24 24 Rate Blood Pressure 169/61 (mmHg) O2 Sat by Pulse 100 99 Oximetry 04/20/17 04/20/17 04/20/17 22:07 22:30 23:03 Temperature Pulse Rate Respiratory 24 24 22 Rate Blood Pressure (mmHg) O2 Sat by Pulse 97 96 Oximetry 04/20/17 04/20/17 04/21/17 23:40 23:41 00:00 Temperature 97.7 F Pulse Rate 77 Respiratory 22 22 Rate Blood Pressure 153/50 (mmHg) O2 Sat by Pulse 83 92 94 Oximetry 04/21/17 04/21/17 04/21/17 00:29 01:46 04:15 Temperature 97.7 F Pulse Rate 83 Respiratory 22 16 Rate Blood Pressure 170/58 (mmHg) O2 Sat by Pulse 93 94 92 Oximetry 04/21/17 04/21/17 04/21/17 07:10 08:00 08:54 Temperature 97.6 F Pulse Rate 51 Respiratory 20 20 Rate Blood Pressure 171/57 (mmHg) O2 Sat by Pulse 94 92 94 Oximetry 04/21/17 04/21/17 04/21/17 08:55 10:51 16:00 Temperature 98.2 F Pulse Rate 82 65 Respiratory 16 20 Rate Blood Pressure 161/50 (mmHg) O2 Sat by Pulse 92 94 97 Oximetry 04/21/17 04/21/17 16:28 18:00 Temperature 97.6 F Pulse Rate 88 Respiratory 24 Rate Blood Pressure 155/44 (mmHg) O2 Sat by Pulse 97 97 Oximetry Oxygen Devices in Use Now: Nasal Cannula - 2L Appearance: NAD, sitting up in bed Ears/Nose/Mouth/Throat: Mucous Membranes Moist Respiratory: Symmetrical Chest Expansion and Respiratory Effort, Clear to Auscultation - , diminished in the bases Cardiovascular: NL Sounds; No Murmurs; No JVD, - - Heart rate irregular irregular Abdominal: NL Sounds; No Tenderness; No Distention Extremities: No Edema Skin: - - Yeast like rash to groin Neurological: Alert and Oriented x 3, NL Muscle Strength and Tone Lines/Tubes/Other Access: Clean, Dry and Intact Peripheral IV - site benign Nutrition: Taking PO's Result Diagrams: 04/21/17 04:42 04/21/17 04:42 Microbiology and Other Data: Microbiology 04/06/17 10:30 Stool Occult Blood ([facility]) - Final Stool 04/05/17 14:00 Legionella Urinary Antigen - Final Urine Negative Legionella Streptococcus pneumoniae Ag Screen - Final Negative S. pneumo Antigen 04/05/17 13:15 Nasal Screen MRSA (PCR)([facility]) - Final Nasal Mrsa Negative Diagnostic Imaging: Echo 04/15 - repeat for eval of LV fxn shows improvement to 55-60% CXR - mild PVC, no sig change from 04/15 CT chest - IMPRESSION: Large anterior mediastinal mass with retrosternal extension likely related to a goiter. Suggest follow-up sonography. Patchy nodular opacities in both mid upper lung moreno. Infectious and neoplastic etiologies are considerations. Cardiomegaly with pulmonary interstitial edema. Bibasilar consolidative changes likely compression atelectasis. Large bilateral pleural effusions US LE Doppler - IMPRESSION: No evidence for RIGHT or LEFT lower extremity DVT. Assess/Plan/Problems-Billing Assessment: Ms. Romero is a 72 yo female with DM, HTN, obesity and depression who was admitted with severe sepsis found to secondary to ESBL EColi complicated by ROSALINDA , acute HF and afib requiring a prolonged ICU stay, now transferred to medical telemetry unit. - Patient Problems (1) Septicemia Code(s): A41.9 - SEPSIS, UNSPECIFIED ORGANISM SNOMED Code(s): 063799994 Comment: - Resolved - ESBL EColi of urinary source - Repeat blood cultures negative - Completed 14 day course of Zosyn (2) Leukocytosis Code(s): D72.829 - ELEVATED WHITE BLOOD CELL COUNT, UNSPECIFIED SNOMED Code(s) : 848134778 Comment: - Resolved - Afebrile - Patient has increased WOB and slight cough, but no infiltrate on recent CXR - Blood cultures - no growth day 2 - Urine culture - no growth - Chest CT - Patchy nodular opacities in both mid upper lung moreno. Infectious and neoplastic etiologies are considerations. Cardiomegaly with pulmonary interstitial edema. Bibasilar consolidative changes likely compression atelectasis. Large bilateral pleural effusions - ID consult, will stop Vanco and Cefepime (3) Cough Code(s): R05 - COUGH SNOMED Code(s): 23219416 Comment: - Some cough and SOB but persistent over the last few days - Some improvement with Lasix and use of flutter valve - Transfused 2U PRBCs 04/18 without significant change - LE doppler negative, eval for DVT as PE would be on the differential list, Ddimer would not be helpful with recent acute illness and CTA contraindicated with recovering renal fxn from recent acute insult from sepsis - CT chest - Patchy nodular opacities in both mid upper lung moreno. Infectious and neoplastic etiologies are considerations. Cardiomegaly with pulmonary interstitial edema. Bibasilar consolidative changes likely compression atelectasis. Large bilateral pleural effusions (4) Acute respiratory failure with hypoxia Code(s): J96.01 - ACUTE RESPIRATORY FAILURE WITH HYPOXIA SNOMED Code(s): 54994129 Comment: - O2 requirments improving - Suspect secondary to HF - Continue supplemental O2 as needed, will wean as able (5) Diabetes Code(s): E11.9 - TYPE 2 DIABETES MELLITUS WITHOUT COMPLICATIONS SNOMED Code(s) : 84872961 Comment: - Glucose 178-280's - Continue Lantus and Regular SS (6) ROSALINDA (acute kidney injury) Code(s): N17.9 - ACUTE KIDNEY FAILURE, UNSPECIFIED SNOMED Code(s): 31135722 Comment: - ATN secondary to sepsis - Improved urine output and Cr continues to decline - Acidosis resolved (7) Atrial fibrillation Code(s): I48.91 - UNSPECIFIED ATRIAL FIBRILLATION SNOMED Code(s): 34369097 Comment: - Secondary to sepsis - Converted to sinus rhythm, breif episode of afib earlier today - No anticoagulation at this time (8) Acute on chronic systolic heart failure Code(s): I50.23 - ACUTE ON CHRONIC SYSTOLIC (CONGESTIVE) HEART FAILURE SNOMED Code(s): 811343109 Comment: - EF measured at 20-25% earlier in hospital stay - Repeat echo shows full resolution with LVEF up to 55-60% - Continue daily weights and strict I+O's - Continue IV lasix (9) Thyroid nodule Code(s): E04.1 - NONTOXIC SINGLE THYROID NODULE SNOMED Code(s): 373485198 Comment: - Large anterior mediastinal mass with retrosternal extension likely related to a goiter. Suggest follow-up sonography outpatient. (10) Hypertension Code(s): I10 - ESSENTIAL (PRIMARY) HYPERTENSION SNOMED Code(s): 14981274 Comment: - SBP 150-170's, persistently hypertensive - Continue amlodipine, coreg (will increase today) and hydralazine - Holding PILAR-I d/t ROSALINDA (11) DVT prophylaxis Code(s): JZD8596 - SNOMED Code(s): 140595575 Comment: - Heparin SQ (12) Full code status Code(s): Z78.9 - OTHER SPECIFIED HEALTH STATUS SNOMED Code(s): 992946929 Status and Disposition: Inpatient. Delayed discharge at this time for repeat cultures due to persistent tachypnea and worsening leukocytosis. Plan to discharge to SNF when medically stable for discharge.
[2017-04-21] MEDS: Atorvastatin* 40 MG TAB PO SCH (21:16)
[2017-04-22] MEDS: Heparin VIAL(*) 5000 UNITS/ML VIAL (FIVE THOUSAND) SUBCUT SCH ×3 (02:38→17:58)
[2017-04-22] MEDS: Omeprazole CAP* 20 MG PO SCH (05:40)
[2017-04-22 06:11] LABS: Hematocrit 24 % (35-47); Hemoglobin 8.1 g/dl (12.0-16.0); Mean Corpuscular HGB Conc 34 g/dl (31-36); Mean Corpuscular Hemoglobin 31 pg (27-31); Mean Corpuscular Volume 93 fL (80-97); Mean Platelet Volume 8 um3 (7.4-10.4); Red Blood Count 2.59 10^6/ul (4.0-5.4); Red Cell Distribution Width 15 % (10.5-15); White Blood Count 7.4 10^3/ul (3.5-10.8)
[2017-04-22 06:25] LABS: BUN/Creatinine Ratio 19.4 (8-20); C Reactive Protein 30.5 mg/L (< 5.00); Calcium 9.6 mg/dL (8.6-10.3); EGFR African American 35.5 (>60); EGFR Non-African American 27.6 (>60); Potassium 3.9 mmol/L (3.5-5.0)
[2017-04-22] MEDS: Insulin REGULAR(*) 1 UNITS UNIT SUBCUT SCH ×4 (08:34→21:48)
[2017-04-22] MEDS: Calcium Acetate CAP* 667 MG PO SCH ×3 (08:35→21:47)
[2017-04-22] MEDS: amLODIPine TAB* 5 MG PO SCH (08:35)
[2017-04-22] MEDS: Aspirin EC Low Dose* 81 MG TAB.EC PO SCH (08:35)
[2017-04-22] MEDS: Furosemide IV* 10 MG/ML VIAL (40 MG) IV SCH (08:36)
[2017-04-22] MEDS: Carvedilol TAB* 3.125 MG PO SCH ×2 (08:36→21:46)
[2017-04-22] MEDS: hydrALAZINE TAB* 10 MG PO SCH ×3 (08:37→21:43)
[2017-04-22] MEDS: Nystatin TOP POWDER* 15 GM BTL TOPICAL SCH ×3 (08:37→21:49)
--- NOTE | 2017-04-22 10:59 | PN ---
Progress Note - Progress Note Date of Service: 04/22/17 SOAP: Subjective CC: cough HPI 72 yo woman admitted with Ecoli sepsis which has been treated and then a cough with mild leukocytosis, has had 2-4 L O2 requirement since being here. CT showed BL pleural effusion and BL upper lobe interstitial infiltrates. Ongoing non productive cough, no chest pain, O2 titrated down last 24 hrs. She chokes when she eats. Objective: [] Vital Signs Temp 36.4 C 04/22/17 07:18 Pulse 76 04/22/17 09:06 Resp 16 04/22/17 09:06 BP 179/64 04/22/17 07:18 Pulse Ox 96 04/22/17 09:06 Intake & Output 04/21/17 04/22/17 04/22/17 18:59 06:59 18:59 Intake Total 1100 440 Output Total 100 Balance 1000 440 Weight 214 lb 4.8 oz Intake: Oral 1100 440 Output: Urine 100 Other: Estimated Void Large Medium # Bowel Movements 1 1 Estimated Stool Amount Small Small # Voids 1 1 Gen:awake, no distress HEENT:PERRL, MMM Neck:supple Heart:RRR no murmur Lungs:decr BS BL no wheeze Abd:+BS NTND soft Skin: no rash MSK: no spine tenderness Abnormal Lab Results 04/21/17 04/21/17 04/21/17 12:01 17:21 20:37 WBC RBC Hgb Hct MCV MCH MCHC RDW Plt Count MPV Neut % (Auto) Lymph % (Auto) Harrison % (Auto) Eos % (Auto) Baso % (Auto) Absolute Neuts (auto) Absolute Lymphs (auto) Absolute Monos (auto) Absolute Eos (auto) Absolute Basos (auto) Absolute Nucleated RBC Nucleated RBC % Sodium Potassium Chloride Carbon Dioxide Anion Gap BUN Creatinine Est GFR ( Amer) Est GFR (Non-Af Amer) BUN/Creatinine Ratio Glucose POC Glucose (mg/dL) 223 H 178 H 180 H Calcium C-Reactive Protein 04/22/17 04/22/17 04/22/17 05:09 05:09 07:57 WBC 7.4 RBC 2.59 L Hgb 8.1 L Hct 24 L MCV 93 MCH 31 MCHC 34 RDW 15 Plt Count 113 L MPV 8 Neut % (Auto) 78.2 Lymph % (Auto) 12.1 L Harrison % (Auto) 7.3 Eos % (Auto) 2.0 Baso % (Auto) 0.4 Absolute Neuts (auto) 5.8 Absolute Lymphs (auto) 0.9 L Absolute Monos (auto) 0.5 Absolute Eos (auto) 0.2 Absolute Basos (auto) 0 Absolute Nucleated RBC 0.01 Nucleated RBC % 0.1 Sodium 146 H Potassium 3.9 Chloride 105 Carbon Dioxide 35 H Anion Gap 6 BUN 35 H Creatinine 1.80 H Est GFR ( Amer) 35.5 Est GFR (Non-Af Amer) 27.6 BUN/Creatinine Ratio 19.4 Glucose 166 H POC Glucose (mg/dL) 185 H Calcium 9.6 C-Reactive Protein 30.50 H Assessment: 1. Hypoxia, improving, mostly due to pleural effusions 2. elevated CRP, improving 3. recent E.coli/ESBL bacteremia and cystitis, resolved Plan: 1. continue off of antibiotics, diuresis per hospitalist svc 25 minutes floor time >50% face to face discussing her symptoms and next steps in treatment.
[2017-04-22] MEDS: Insulin GLARGINE(*) 1 UNITS UNIT SUBCUT SCH (13:22)
--- NOTE | 2017-04-22 18:33 | PN ---
Subjective Date of Service: 04/22/17 Interval History: Patient seen and examined at bedside. Denies fever, chills, shortness of breath , chest discomfort, N/V/D. Pt continues to feel weak and like she is never getting better. Tele: Sinus rhythm with PACs, rate 70's. Family History: Unchanged from Admission Social History: Unchanged from Admission Past Medical History: Unchanged from Admission Objective Active Medications: Acetaminophen (Tylenol Tab*) 650 mg PO Q6H PRN Reason: PAIN Albuterol/Ipratropium (Duoneb (Albuterol 2.5 Mg/Ipratropium 0.5 Mg)) 1 neb INH Q4H PRN Reason: SOB/WHEEZING Amlodipine Besylate (Norvasc Tab*) 10 mg PO DAILY [facility] Aspirin (Aspirin Ec Low Dose*) 81 mg PO DAILY [facility] Atorvastatin Calcium (Lipitor*) 40 mg PO 2100 [facility] Calcium Acetate (Phoslo Cap*) 1,334 mg PO TID [facility] Carvedilol (Coreg Tab*) 6.25 mg PO BID [facility] Dextrose (D50w Syringe 50 Ml*) 12.5 gm IV PUSH .FOR FS < 60 - SS PRN Reason: FS < 60 Furosemide (Lasix Iv*) 40 mg IV DAILY [facility] Heparin Sodium (Porcine) (Heparin Vial(*)) 5,000 units SUBCUT Q8H [facility] Hydralazine HCl (Apresoline Tab*) 15 mg PO TID [facility] Insulin Glargine (Lantus(*)) 50 units SUBCUT Q24H [facility] Insulin Human Regular (Insulin Regular(*)) 0 units SUBCUT FS ACHS ICU [facility] Reason: Protocol Lidocaine HCl (Xylocaine 2 % Jelly*) 0 ml TOPICAL TID PRN Reason: PAIN Nystatin (Nystatin Top Powder*) 1 applic TOPICAL TID [facility] Omeprazole (Prilosec Cap*) 20 mg PO 0600 [facility] Ondansetron HCl (Zofran Inj*) 4 mg IV Q6H PRN Reason: NAUSEA Vital Signs 04/21/17 04/21/17 04/21/17 19:18 19:50 20:00 Temperature 97.8 F Pulse Rate 83 69 Respiratory 20 16 Rate Blood Pressure 186/52 (mmHg) O2 Sat by Pulse 95 96 Oximetry 04/22/17 04/22/17 04/22/17 00:00 00:11 02:48 Temperature 97.4 F 97.4 F Pulse Rate 69 75 Respiratory 16 16 Rate Blood Pressure 156/47 158/58 (mmHg) O2 Sat by Pulse 96 96 98 Oximetry 04/22/17 04/22/17 04/22/17 07:18 09:06 11:09 Temperature 97.6 F 97.5 F Pulse Rate 64 76 62 Respiratory 20 16 20 Rate Blood Pressure 179/64 150/56 (mmHg) O2 Sat by Pulse 96 96 93 Oximetry Oxygen Devices in Use Now: Nasal Cannula - 2L Appearance: NAD, laying in bed Ears/Nose/Mouth/Throat: Mucous Membranes Moist Respiratory: Symmetrical Chest Expansion and Respiratory Effort, Clear to Auscultation - , diminished Cardiovascular: NL Sounds; No Murmurs; No JVD, RRR Skin: No Rash or Ulcers Neurological: Alert and Oriented x 3, NL Muscle Strength and Tone Lines/Tubes/Other Access: Clean, Dry and Intact Peripheral IV - site benign Nutrition: Taking PO's Result Diagrams: 04/22/17 05:09 04/22/17 05:09 Microbiology and Other Data: Microbiology 04/06/17 10:30 Stool Occult Blood ([facility]) - Final Stool 04/05/17 14:00 Legionella Urinary Antigen - Final Urine Negative Legionella Streptococcus pneumoniae Ag Screen - Final Negative S. pneumo Antigen 04/05/17 13:15 Nasal Screen MRSA (PCR)([facility]) - Final Nasal Mrsa Negative Diagnostic Imaging: Echo 04/15 - repeat for eval of LV fxn shows improvement to 55-60% CXR - mild PVC, no sig change from 04/15 CT chest - IMPRESSION: Large anterior mediastinal mass with retrosternal extension likely related to a goiter. Suggest follow-up sonography. Patchy nodular opacities in both mid upper lung moreno. Infectious and neoplastic etiologies are considerations. Cardiomegaly with pulmonary interstitial edema. Bibasilar consolidative changes likely compression atelectasis. Large bilateral pleural effusions US LE Doppler - IMPRESSION: No evidence for RIGHT or LEFT lower extremity DVT. Assess/Plan/Problems-Billing Assessment: Ms. Romero is a 72 yo female with DM, HTN, obesity and depression who was admitted with severe sepsis found to secondary to ESBL EColi complicated by ROSALINDA , acute HF and afib requiring a prolonged ICU stay, now transferred to medical telemetry unit. - Patient Problems (1) Septicemia Code(s): A41.9 - SEPSIS, UNSPECIFIED ORGANISM SNOMED Code(s): 927314682 Comment: - Resolved - ESBL EColi of urinary source - Repeat blood cultures negative - Completed 14 day course of Zosyn (2) Leukocytosis Code(s): D72.829 - ELEVATED WHITE BLOOD CELL COUNT, UNSPECIFIED SNOMED Code(s) : 696537420 Comment: - Resolved - Afebrile - Patient has increased WOB and slight cough, but no infiltrate on recent CXR - Blood cultures - no growth day 2 - Urine culture - no growth - Chest CT - Patchy nodular opacities in both mid upper lung moreno. Infectious and neoplastic etiologies are considerations. Cardiomegaly with pulmonary interstitial edema. Bibasilar consolidative changes likely compression atelectasis. Large bilateral pleural effusions - ID consult, will stop Vanco and Cefepime (3) Cough Code(s): R05 - COUGH SNOMED Code(s): 82652474 Comment: - Some cough and SOB but persistent over the last few days - Some improvement with Lasix and use of flutter valve - Transfused 2U PRBCs 04/18 without significant change - LE doppler negative, eval for DVT as PE would be on the differential list, Ddimer would not be helpful with recent acute illness and CTA contraindicated with recovering renal fxn from recent acute insult from sepsis - CT chest - Patchy nodular opacities in both mid upper lung moreno. Infectious and neoplastic etiologies are considerations. Cardiomegaly with pulmonary interstitial edema. Bibasilar consolidative changes likely compression atelectasis. Large bilateral pleural effusions (4) Acute respiratory failure with hypoxia Code(s): J96.01 - ACUTE RESPIRATORY FAILURE WITH HYPOXIA SNOMED Code(s): 19819008 Comment: - O2 requirments improving - Suspect secondary to HF - Continue supplemental O2 as needed, will wean as able (5) Diabetes Code(s): E11.9 - TYPE 2 DIABETES MELLITUS WITHOUT COMPLICATIONS SNOMED Code(s) : 66340832 Comment: - Glucose 190-290's - Continue Lantus and Regular SS (6) ROSALINDA (acute kidney injury) Code(s): N17.9 - ACUTE KIDNEY FAILURE, UNSPECIFIED SNOMED Code(s): 48638794 Comment: - ATN secondary to sepsis - Improved urine output and Cr continues to decline - Acidosis resolved (7) Atrial fibrillation Code(s): I48.91 - UNSPECIFIED ATRIAL FIBRILLATION SNOMED Code(s): 42060256 Comment: - Secondary to sepsis - Converted to sinus rhythm, breif episode of afib yesterday - No anticoagulation at this time (8) Acute on chronic systolic heart failure Code(s): I50.23 - ACUTE ON CHRONIC SYSTOLIC (CONGESTIVE) HEART FAILURE SNOMED Code(s): 679361264 Comment: - EF measured at 20-25% earlier in hospital stay - Repeat echo shows full resolution with LVEF up to 55-60% - Continue daily weights and strict I+O's - Continue IV lasix (9) Thyroid nodule Code(s): E04.1 - NONTOXIC SINGLE THYROID NODULE SNOMED Code(s): 426223098 Comment: - Large anterior mediastinal mass with retrosternal extension likely related to a goiter. Suggest follow-up sonography outpatient. (10) Hypertension Code(s): I10 - ESSENTIAL (PRIMARY) HYPERTENSION SNOMED Code(s): 86810133 Comment: - SBP 150-180's, persistently hypertensive - Continue amlodipine, coreg (increased yesterday) and hydralazine - Holding PILAR-I d/t ROSALINDA (11) DVT prophylaxis Code(s): DFX2218 - SNOMED Code(s): 914929496 Comment: - Heparin SQ (12) Full code status Code(s): Z78.9 - OTHER SPECIFIED HEALTH STATUS SNOMED Code(s): 731727283 Status and Disposition: Inpatient. Delayed discharge at this time for repeat cultures due to persistent tachypnea and worsening leukocytosis. Plan to discharge to SNF when medically stable for discharge.
[2017-04-22] MEDS ORDERED: Vancomycin Trough Check NOTE FOLLOW UP ONE (19:30)
[2017-04-22] MEDS: Atorvastatin* 40 MG TAB PO SCH (21:43)
[2017-04-23] MEDS: Heparin VIAL(*) 5000 UNITS/ML VIAL (FIVE THOUSAND) SUBCUT SCH ×3 (02:32→17:55)
[2017-04-23] MEDS: Omeprazole CAP* 20 MG PO SCH (06:09)
[2017-04-23 07:41] LABS: Hematocrit 24 % (35-47); Mean Corpuscular HGB Conc 33 g/dl (31-36); Mean Corpuscular Hemoglobin 31 pg (27-31); Mean Corpuscular Volume 93 fL (80-97); Mean Platelet Volume 8 um3 (7.4-10.4); Red Blood Count 2.58 10^6/ul (4.0-5.4); Red Cell Distribution Width 15 % (10.5-15)
[2017-04-23 07:51] LABS: Comments Flag Yes
[2017-04-23 07:52] LABS: BUN/Creatinine Ratio 20.5 (8-20); Blood Urea Nitrogen 35 mg/dL (6-24); Calcium 9.5 mg/dL (8.6-10.3); Chloride 104 mmol/L (101-111); EGFR African American 37.6 (>60); EGFR Non-African American 29.3 (>60); Glucose 195 mg/dL (70-100); Sodium 144 mmol/L (133-145)
[2017-04-23 07:53] LABS: Add Diff/Slide Review? Slide Review Added
[2017-04-23 08:11] LABS: Anion Gap 1 mmol/L (2-11); CO2 Carbon Dioxide 39 mmol/L (22-32)
[2017-04-23] MEDS: Aspirin EC Low Dose* 81 MG TAB.EC PO SCH (09:10)
[2017-04-23] MEDS: amLODIPine TAB* 5 MG PO SCH (09:10)
[2017-04-23] MEDS: hydrALAZINE TAB* 10 MG PO SCH ×3 (09:10→21:54)
[2017-04-23] MEDS: Insulin REGULAR(*) 1 UNITS UNIT SUBCUT SCH ×4 (09:11→21:56)
[2017-04-23] MEDS: Furosemide IV* 10 MG/ML VIAL (40 MG) IV SCH (09:11)
[2017-04-23] MEDS: Carvedilol TAB* 3.125 MG PO SCH (09:11)
[2017-04-23] MEDS: Calcium Acetate CAP* 667 MG PO SCH ×3 (10:05→21:54)
[2017-04-23] MEDS: Nystatin TOP POWDER* 15 GM BTL TOPICAL SCH ×3 (10:06→21:57)
[2017-04-23] MEDS: Insulin GLARGINE(*) 1 UNITS UNIT SUBCUT SCH (14:15)
--- NOTE | 2017-04-23 15:13 | PN ---
Subjective Date of Service: 04/23/17 Interval History: Ms. Romero states that she is feeling better today. She continues to have some dyspnea with exertion but was able to get up to the chair essentially independently. Nursing staff attempted to wean her off the 1L of O2 but her SpO2 fell to the 70s. She denies chest pain, SOB at rest, nausea, or abdominal pain. Family History: Unchanged from Admission Social History: Unchanged from Admission Past Medical History: Unchanged from Admission Objective Active Medications: Acetaminophen (Tylenol Tab*) 650 mg PO Q6H PRN Albuterol/Ipratropium (Duoneb (Albuterol 2.5 Mg/Ipratropium 0.5 Mg)) 1 neb INH Q4H PRN Amlodipine Besylate (Norvasc Tab*) 10 mg PO DAILY [facility] Aspirin (Aspirin Ec Low Dose*) 81 mg PO DAILY [facility] Atorvastatin Calcium (Lipitor*) 40 mg PO 2100 [facility] Calcium Acetate (Phoslo Cap*) 1,334 mg PO TID [facility] Carvedilol (Coreg Tab*) 6.25 mg PO BID [facility] Dextrose (D50w Syringe 50 Ml*) 12.5 gm IV PUSH .FOR FS < 60 - SS PRN Furosemide (Lasix Iv*) 40 mg IV DAILY [facility] Heparin Sodium (Porcine) (Heparin Vial(*)) 5,000 units SUBCUT Q8H [facility] Hydralazine HCl (Apresoline Tab*) 15 mg PO TID [facility] Insulin Glargine (Lantus(*)) 50 units SUBCUT Q24H [facility] Insulin Human Regular (Insulin Regular(*)) 0 units SUBCUT FS ACHS ICU [facility] Lidocaine HCl (Xylocaine 2 % Jelly*) 0 ml TOPICAL TID PRN Nystatin (Nystatin Top Powder*) 1 applic TOPICAL TID [facility] Omeprazole (Prilosec Cap*) 20 mg PO 0600 [facility] Ondansetron HCl (Zofran Inj*) 4 mg IV Q6H PRN Vital Signs: Temp Pulse Resp BP Pulse Ox 97.8 F 66 16 137/48 97 04/23/17 11:02 04/23/17 10:49 04/23/17 10:49 04/23/17 10:49 04/23/17 11:05 Oxygen Devices in Use Now: Nasal Cannula - 2L Appearance: Female lying in bed in NAD Eyes: No Scleral Icterus Ears/Nose/Mouth/Throat: NL Teeth, Lips, Gums Neck: NL Appearance and Movements; NL JVP Respiratory: Symmetrical Chest Expansion and Respiratory Effort, - - minimal fine crackles in bases Cardiovascular: NL Sounds; No Murmurs; No JVD, No Edema Abdominal: NL Sounds; No Tenderness; No Distention Lymphatic: No Cervical Adenopathy Extremities: No Edema Skin: No Rash or Ulcers Neurological: Alert and Oriented x 3, NL Muscle Strength and Tone Nutrition: Taking PO's Result Diagrams: 04/23/17 07:23 04/23/17 07:23 Microbiology and Other Data: Microbiology 04/06/17 10:30 Stool Occult Blood ([facility]) - Final Stool 04/05/17 14:00 Legionella Urinary Antigen - Final Urine Negative Legionella Streptococcus pneumoniae Ag Screen - Final Negative S. pneumo Antigen 04/05/17 13:15 Nasal Screen MRSA (PCR)([facility]) - Final Nasal Mrsa Negative Diagnostic Imaging: Echo 04/15 - repeat for eval of LV fxn shows improvement to 55-60% CXR - mild PVC, no sig change from 04/15 CT chest - IMPRESSION: Large anterior mediastinal mass with retrosternal extension likely related to a goiter. Suggest follow-up sonography. Patchy nodular opacities in both mid upper lung moreno. Infectious and neoplastic etiologies are considerations. Cardiomegaly with pulmonary interstitial edema. Bibasilar consolidative changes likely compression atelectasis. Large bilateral pleural effusions US LE Doppler - IMPRESSION: No evidence for RIGHT or LEFT lower extremity DVT. Assess/Plan/Problems-Billing Assessment: Ms. Romero is a 72 yo female with DM, HTN, obesity and depression who was admitted with severe sepsis found to secondary to ESBL EColi complicated by ROSALINDA , acute HF and afib requiring a prolonged ICU stay, now transferred to medical telemetry unit. - Patient Problems (1) Acute respiratory failure with hypoxia Current Visit: Yes Status: Acute Code(s): J96.01 - ACUTE RESPIRATORY FAILURE WITH HYPOXIA SNOMED Code(s): 50715558 Comment: - O2 requirments down to 1L NC. - Suspect secondary to HF. (2) Acute on chronic systolic heart failure Current Visit: Yes Status: Acute Code(s): I50.23 - ACUTE ON CHRONIC SYSTOLIC (CONGESTIVE) HEART FAILURE SNOMED Code(s): 962615743 Comment: - SOB much improved. - EF measured at 20-25% earlier in hospital stay. Repeat echo shows full resolution with LVEF up to 55-60% - Switch to po lasix. - Continue daily weights and strict I+O's. (3) ROSALINDA (acute kidney injury) Comment: - Creatinine as high as 6 during this hospitalization. - Plateaued at 1.7 now, avoid nephrotoxins. (4) Atrial fibrillation Comment: - Paroxysmal during this hospitalization but now in NSR. - Will need to review risks and benefits of anticoagulation now that patient is stable. (5) Hypertension Comment: - SBP 150-180's, persistently hypertensive - Continue amlodipine, increase coreg, and continue hydralazine - Holding PILAR-I d/t ROSALINDA (6) Diabetes Comment: - Glucose 190-220's - Continue Lantus and Regular SS (7) Thyroid nodule Comment: - Large anterior mediastinal mass with retrosternal extension likely related to a goiter. Suggest follow-up sonography outpatient. (8) Leukocytosis Comment: - Resolved, afebrile, CRP falling. - Appreciate ID consult, workup negative. (9) Septicemia Comment: - Resolved. ESBL EColi of urinary source, completed 14 day course of zosyn. Repeat blood cultures negative. (10) DVT prophylaxis Comment: - Heparin SQ (11) Full code status Status and Disposition: Inpatient. Patient making improvements in mobility, question if she may be able to return home. PT and OT to evaluate.
[2017-04-23 18:00] LABS: Iron 64 ug/dL (50-212)
[2017-04-23 18:13] LABS: Total Iron Binding Capacity 241 mcg/dL (250-450); Transferrin 172 mg/dL (203-362)
[2017-04-23 18:25] LABS: Folate > 20.00 ng/mL (>3.99)
[2017-04-23 18:26] LABS: Vitamin B12 > 1450 pg/mL (180-914)
[2017-04-23 18:40] LABS: Ferritin 258.3 ng/mL (11-307)
[2017-04-23] MEDS: Carvedilol TAB* 6.25 MG PO SCH (21:53)
[2017-04-23] MEDS: Atorvastatin* 40 MG TAB PO SCH (21:53)
[2017-04-24] MEDS: Heparin VIAL(*) 5000 UNITS/ML VIAL (FIVE THOUSAND) SUBCUT SCH ×3 (04:20→18:32)
[2017-04-24] MEDS: Omeprazole CAP* 20 MG PO SCH (06:06)
[2017-04-24] MEDS: Insulin REGULAR(*) 1 UNITS UNIT SUBCUT SCH ×4 (08:45→21:37)
[2017-04-24] MEDS ORDERED: Furosemide TAB* 40 MG PO SCH (09:00)
[2017-04-24] MEDS ORDERED: Rivaroxaban TAB(*) 20 MG TAB PO SCH (09:00)
[2017-04-24] MEDS: hydrALAZINE TAB* 10 MG PO SCH ×3 (10:28→21:36)
[2017-04-24] MEDS: Carvedilol TAB* 6.25 MG PO SCH ×2 (10:28→21:35)
[2017-04-24] MEDS: amLODIPine TAB* 5 MG PO SCH (10:28)
[2017-04-24] MEDS: Aspirin EC Low Dose* 81 MG TAB.EC PO SCH (10:28)
[2017-04-24] MEDS: Calcium Acetate CAP* 667 MG PO SCH ×3 (10:28→21:36)
[2017-04-24] MEDS: Nystatin TOP POWDER* 15 GM BTL TOPICAL SCH ×3 (10:33→21:38)
[2017-04-24] MEDS: Insulin GLARGINE(*) 1 UNITS UNIT SUBCUT SCH (13:34)
--- NOTE | 2017-04-24 13:35 | PN ---
Subjective Date of Service: 04/24/17 Interval History: Ms. Romero states that she continues to feel better though she remains weak and has dsypnea with exertion. She also complains of some chronic left knee pain which seems to be a little worse today. She denies chest pain, nausea, or abdominal pain. Family History: Unchanged from Admission Social History: Unchanged from Admission Past Medical History: Unchanged from Admission Objective Active Medications: Acetaminophen (Tylenol Tab*) 650 mg PO Q6H PRN Albuterol/Ipratropium (Duoneb (Albuterol 2.5 Mg/Ipratropium 0.5 Mg)) 1 neb INH Q4H PRN Amlodipine Besylate (Norvasc Tab*) 10 mg PO DAILY [facility] Aspirin (Aspirin Ec Low Dose*) 81 mg PO DAILY [facility] Atorvastatin Calcium (Lipitor*) 40 mg PO 2100 [facility] Calcium Acetate (Phoslo Cap*) 1,334 mg PO TID [facility] Carvedilol (Coreg Tab*) 12.5 mg PO BID [facility] Dextrose (D50w Syringe 50 Ml*) 12.5 gm IV PUSH .FOR FS < 60 - SS PRN Furosemide (Lasix Tab*) 40 mg PO 0800,1700 [facility] Heparin Sodium (Porcine) (Heparin Vial(*)) 5,000 units SUBCUT Q8H [facility] Hydralazine HCl (Apresoline Tab*) 15 mg PO TID [facility] Insulin Glargine (Lantus(*)) 50 units SUBCUT Q24H [facility] Insulin Human Regular (Insulin Regular(*)) 0 units SUBCUT FS ACHS ICU [facility] Lidocaine HCl (Xylocaine 2 % Jelly*) 0 ml TOPICAL TID PRN Nystatin (Nystatin Top Powder*) 1 applic TOPICAL TID [facility] Omeprazole (Prilosec Cap*) 20 mg PO 0600 [facility] Ondansetron HCl (Zofran Inj*) 4 mg IV Q6H PRN Vital Signs: Temp Pulse Resp BP Pulse Ox 97.4 F 67 16 152/55 94 04/24/17 08:30 04/24/17 08:30 04/24/17 08:30 04/24/17 08:30 04/24/17 08:30 Oxygen Devices in Use Now: Nasal Cannula - 2L Appearance: Female sitting up in bed in NAD Eyes: No Scleral Icterus Ears/Nose/Mouth/Throat: Mucous Membranes Moist Neck: Trachea Midline Respiratory: Symmetrical Chest Expansion and Respiratory Effort, - - Diminished bilaterally Cardiovascular: NL Sounds; No Murmurs; No JVD, No Edema - minimal LE edema Abdominal: NL Sounds; No Tenderness; No Distention Lymphatic: No Cervical Adenopathy Skin: No Rash or Ulcers Neurological: Alert and Oriented x 3, NL Muscle Strength and Tone Nutrition: Taking PO's Result Diagrams: 04/23/17 07:23 04/23/17 07:23 Microbiology and Other Data: Microbiology 04/06/17 10:30 Stool Occult Blood ([facility]) - Final Stool 04/05/17 14:00 Legionella Urinary Antigen - Final Urine Negative Legionella Streptococcus pneumoniae Ag Screen - Final Negative S. pneumo Antigen 04/05/17 13:15 Nasal Screen MRSA (PCR)([facility]) - Final Nasal Mrsa Negative Diagnostic Imaging: Echo 04/15 - repeat for eval of LV fxn shows improvement to 55-60% CXR - mild PVC, no sig change from 04/15 CT chest - IMPRESSION: Large anterior mediastinal mass with retrosternal extension likely related to a goiter. Suggest follow-up sonography. Patchy nodular opacities in both mid upper lung moreno. Infectious and neoplastic etiologies are considerations. Cardiomegaly with pulmonary interstitial edema. Bibasilar consolidative changes likely compression atelectasis. Large bilateral pleural effusions US LE Doppler - IMPRESSION: No evidence for RIGHT or LEFT lower extremity DVT. Assess/Plan/Problems-Billing Assessment: Ms. Romero is a 72 yo female with DM, HTN, obesity and depression who was admitted with severe sepsis found to secondary to ESBL EColi complicated by ROSALINDA , acute HF and afib requiring a prolonged ICU stay, now transferred to medical telemetry unit. - Patient Problems (1) Acute on chronic systolic heart failure Current Visit: Yes Status: Acute Code(s): I50.23 - ACUTE ON CHRONIC SYSTOLIC (CONGESTIVE) HEART FAILURE SNOMED Code(s): 699156285 Comment: - O2 requirments down to 1L NC but patient appears dyspneic. - EF measured at 20-25% earlier in hospital stay. Repeat echo shows full resolution with LVEF up to 55-60% - Patient has persistent vascular congestion and pleural effusion. Increase lasix to BID and recheck labs in AM. - Continue daily weights and strict I+O's. (2) ROSALINDA (acute kidney injury) Comment: - Creatinine as high as 6 during this hospitalization. - Plateaued at 1.7 now, avoid nephrotoxins. (3) Atrial fibrillation Comment: - Paroxysmal during this hospitalization but now in NSR. - Will need to review risks and benefits of anticoagulation now that patient is stable. (4) Hypertension Comment: - SBP 130-150s. - Continue amlodipine, increase coreg, and continue hydralazine - Holding PILAR-I d/t ROSALINDA. (5) Diabetes Comment: - Glucose 110-200's - Continue Lantus and Regular SS (6) Thyroid nodule Comment: - Large anterior mediastinal mass with retrosternal extension likely related to a goiter. Suggest follow-up sonography outpatient. (7) DVT prophylaxis Comment: - Heparin SQ (8) Full code status Status and Disposition: Inpatient. Patient making improvements in mobility, question if she may be able to return home. PT and OT to evaluate.
--- NOTE | 2017-04-24 14:08 | RAD ---
Indication: Mild dyspnea. Possible CHF. Respiratory disease. Non-STEMI. Sepsis. Comparison: April 19, 2017 CT. Technique: Upright AP 1252 hours Report: Cardiomegaly, prominent ill-defined central pulmonary vasculature with cephalization. Perihilar alveolar opacities and diffuse prominence of the mid to lower lung zone interstitial markings. Moderate pleural effusions and small volume of fluid at the RIGHT minor fissure. IMPRESSION: Persistent findings of pulmonary edema with associated moderate pleural effusions.
[2017-04-24] MEDS: Furosemide TAB* 40 MG PO SCH (17:29)
[2017-04-24] MEDS: Acetaminophen TAB* 325 MG PO PRN (21:35)
[2017-04-24] MEDS: Atorvastatin* 40 MG TAB PO SCH (21:36)
[2017-04-25] MEDS: HYDROcodone/ACETAMIN 5-325 MG* 1 TAB PO PRN ×4 (00:15→18:23)
[2017-04-25] MEDS: Heparin VIAL(*) 5000 UNITS/ML VIAL (FIVE THOUSAND) SUBCUT SCH ×3 (03:52→18:23)
[2017-04-25] MEDS: Omeprazole CAP* 20 MG PO SCH (06:37)
[2017-04-25 07:57] LABS: BUN/Creatinine Ratio 19.6 (8-20); Calcium 9.3 mg/dL (8.6-10.3); EGFR African American 34.6 (>60); EGFR Non-African American 26.9 (>60)
[2017-04-25] MEDS: Insulin REGULAR(*) 1 UNITS UNIT SUBCUT SCH ×3 (08:18→18:23)
[2017-04-25 09:20] LABS: FIO2 2
[2017-04-25] MEDS: hydrALAZINE TAB* 10 MG PO SCH ×3 (09:21→22:00)
[2017-04-25] MEDS: Furosemide TAB* 40 MG PO SCH ×2 (09:22→17:07)
[2017-04-25] MEDS: Aspirin EC Low Dose* 81 MG TAB.EC PO SCH (09:22)
[2017-04-25] MEDS: Calcium Acetate CAP* 667 MG PO SCH (09:22)
[2017-04-25] MEDS: amLODIPine TAB* 5 MG PO SCH (09:22)
[2017-04-25] MEDS: Carvedilol TAB* 6.25 MG PO SCH ×2 (09:22→22:00)
[2017-04-25 09:43] LABS: PCO2 Arterial 72 mmHg (35-45)
--- NOTE | 2017-04-25 10:24 | PN ---
Progress Note - Progress Note Date of Service: 04/25/17 SOAP: Subjective: CC: cough HPI 72 yo woman admitted with Ecoli sepsis which has been treated and then a cough with mild leukocytosis, had 2-4 L O2 requirement since being here. CT showed BL pleural effusion and BL upper lobe interstitial infiltrates. Cough improving as is breathing. Objective: [] Vital Signs Temp 36.6 C 04/25/17 07:16 Pulse 66 04/25/17 09:08 Resp 14 04/25/17 09:08 BP 148/49 04/25/17 07:16 Pulse Ox 94 04/25/17 09:08 Intake & Output 04/24/17 04/25/17 04/25/17 18:59 06:59 18:59 Intake Total 560 460 Balance 560 460 Weight 208 lb Intake: Oral 560 460 Other: Estimated Void Medium Medium # Bowel Movements 0 1 Estimated Stool Amount Medium Medium Medium # Voids 1 Gen:awake, no distress HEENT:PERRL, MMM Neck:supple Heart:RRR no murmur Lungs:decr BS BL no wheeze Abd:+BS NTND soft Skin: no rash Assessment: 1. Hypoxia, improving, mostly due to pleural effusions ; elev bicarb ? contraction alkalosis or CO2 retention 2. elevated CRP, improving 3. recent E.coli/ESBL bacteremia and cystitis, resolved Plan: 1. continue off of antibiotics, diuresis and oxygen per hospitalist svc 25 minutes floor time >50% face to face discussing her symptoms and next steps in treatment, coordinating with Juanita Balbuena [employer].
[2017-04-25] MEDS: Nystatin TOP POWDER* 15 GM BTL TOPICAL SCH ×2 (10:42→13:54)
[2017-04-25] MEDS ORDERED: Potassium Chlor TAB* 20 MEQ TAB.ER PO ONE (10:57)
[2017-04-25] MEDS: NS 0.45% KCl 20 Meq 1000 ML* 1,000 ML IV SCH (11:42)
[2017-04-25] MEDS: Insulin GLARGINE(*) 1 UNITS UNIT SUBCUT SCH (13:52)
--- NOTE | 2017-04-25 18:14 | PN ---
Subjective Date of Service: 04/25/17 Interval History: Ms. Romero was initially quite tired and lethargic this morning but she is looking much better and sitting up in a chair this afternoon. She denies complaint and feels that her breathing is unchanged from yesterday. She specifically denies chest pain, SOB, nausea, or abdominal pain. Family History: Unchanged from Admission Social History: Unchanged from Admission Past Medical History: Unchanged from Admission Objective Active Medications: Acetaminophen (Tylenol Tab*) 650 mg PO Q6H PRN Hydrocodone Bitart/Acetaminophen ([place] 5-325 Tab*) 1 tab PO Q6H PRN Acetazolamide (Diamox Tab*) 250 mg PO BID KIA Albuterol/Ipratropium (Duoneb (Albuterol 2.5 Mg/Ipratropium 0.5 Mg)) 1 neb INH Q4H PRN Amlodipine Besylate (Norvasc Tab*) 10 mg PO DAILY KIA Aspirin (Aspirin Ec Low Dose*) 81 mg PO DAILY KIA Atorvastatin Calcium (Lipitor*) 40 mg PO 2100 KIA Carvedilol (Coreg Tab*) 12.5 mg PO BID KIA Dextrose (D50w Syringe 50 Ml*) 12.5 gm IV PUSH .FOR FS < 60 - SS PRN Heparin Sodium (Porcine) (Heparin Vial(*)) 5,000 units SUBCUT Q8H KIA Hydralazine HCl (Apresoline Tab*) 15 mg PO TID KIA Potassium Chloride/Sodium Chloride (Ns 0.45% Kcl 20 Meq 1000 Ml*) 1,000 mls @ 75 mls/hr IV PER RATE KIA Insulin Glargine (Lantus(*)) 50 units SUBCUT Q24H KIA Insulin Human Regular (Insulin Regular(*)) 0 units SUBCUT FS ACHS ICU KIA Lidocaine HCl (Xylocaine 2 % Jelly*) 0 ml TOPICAL TID PRN Nystatin (Nystatin Top Powder*) 1 applic TOPICAL TID KIA Omeprazole (Prilosec Cap*) 20 mg PO 0600 KIA Ondansetron HCl (Zofran Inj*) 4 mg IV Q6H PRN Vital Signs: Temp Pulse Resp BP Pulse Ox 98.2 F 66 16 135/44 94 04/25/17 15:23 04/25/17 15:23 04/25/17 15:23 04/25/17 15:23 04/25/17 15:23 Oxygen Devices in Use Now: Nasal Cannula - 2L Appearance: Female sitting up in chair in NAD Eyes: No Scleral Icterus Ears/Nose/Mouth/Throat: Mucous Membranes Moist Neck: Trachea Midline Respiratory: Symmetrical Chest Expansion and Respiratory Effort, - - Diminished in bases Cardiovascular: NL Sounds; No Murmurs; No JVD, No Edema Abdominal: NL Sounds; No Tenderness; No Distention Lymphatic: No Cervical Adenopathy Extremities: No Edema Skin: No Rash or Ulcers Neurological: Alert and Oriented x 3, NL Muscle Strength and Tone Nutrition: Taking PO's Result Diagrams: 04/23/17 07:23 04/25/17 07:31 Microbiology and Other Data: Microbiology 04/06/17 10:30 Stool Occult Blood ([facility]) - Final Stool 04/05/17 14:00 Legionella Urinary Antigen - Final Urine Negative Legionella Streptococcus pneumoniae Ag Screen - Final Negative S. pneumo Antigen 04/05/17 13:15 Nasal Screen MRSA (PCR)([facility]) - Final Nasal Mrsa Negative Diagnostic Imaging: Echo 04/15 - repeat for eval of LV fxn shows improvement to 55-60% CXR - mild PVC, no sig change from 04/15 CT chest - IMPRESSION: Large anterior mediastinal mass with retrosternal extension likely related to a goiter. Suggest follow-up sonography. Patchy nodular opacities in both mid upper lung moreno. Infectious and neoplastic etiologies are considerations. Cardiomegaly with pulmonary interstitial edema. Bibasilar consolidative changes likely compression atelectasis. Large bilateral pleural effusions US LE Doppler - IMPRESSION: No evidence for RIGHT or LEFT lower extremity DVT. Assess/Plan/Problems-Billing Assessment: Ms. Romero is a 72 yo female with DM, HTN, obesity and depression who was admitted with severe sepsis found to secondary to ESBL EColi complicated by ROSALINDA , acute HF and afib requiring a prolonged ICU stay, now transferred to medical telemetry unit. - Patient Problems (1) Metabolic alkalosis with respiratory acidosis Comment: - Compensated. - Patient noted to have high bicarb on BMP this morning which prompted an ABG which showed a compensated mixed respiratory acidosis and metabolic alkalosis. Likely in part related to underlying COPD and a contraction alkalosis from diuresis. - Plan to stop furosemide and given acetazolamide 250mg po BID x 48 hours. Will add potassium with plan to keep K> 4.0 to promote bicarb excretion. - Patient's breathing at baseline, mentation good. Bipap not indicated. (2) Acute on chronic systolic heart failure Current Visit: Yes Status: Acute Code(s): I50.23 - ACUTE ON CHRONIC SYSTOLIC (CONGESTIVE) HEART FAILURE SNOMED Code(s): 744447162 Comment: - O2 requirments down to 1L NC but patient appears dyspneic. - EF measured at 20-25% earlier in hospital stay. Repeat echo shows full resolution with LVEF up to 55-60% - Patient had persistent vascular congestion and pleural effusions. Will need to discontinue lasix for now given contraction alkalosis. - Continue daily weights and strict I+O's. (3) ROSALINDA (acute kidney injury) Comment: - Creatinine as high as 6 during this hospitalization. - Plateaued at 1.7 now, avoid nephrotoxins. (4) Atrial fibrillation Comment: - Paroxysmal during this hospitalization (x2) but now in NSR. - Reviewed risks and benefits of anticoagulation with patient and family. Would be interested in considering starting a NOAC but I am concerned about her anemia. - Iron stores normal, vit B 12 and folate normal. Stool guiac pending but no report of dark stools. Perhaps she simply has anemia of chronic disease which has been worsened by her acute illness but will need to rule out occult GI bleeding. (5) Hypertension Comment: - SBP 130-150s. - Continue amlodipine, increased coreg, and continue hydralazine. - Holding PILAR-I d/t recent severe ROSALINDA. (6) Diabetes Comment: - Glucose 110-200's - Continue Lantus and lispro (increase to high dose scale). (7) Thyroid nodule Comment: - Large anterior mediastinal mass with retrosternal extension likely related to a goiter. Suggest follow-up sonography outpatient. (8) DVT prophylaxis Comment: - Heparin SQ (9) Full code status Status and Disposition: Inpatient. [facility] if bed remains available when she is medically stable.
[2017-04-25] MEDS ORDERED: Dextrose 50% Syringe 50 ML* 25 GM/50 ML SYRINGE IV PUSH PRN (18:24)
[2017-04-25] MEDS: acetaZOLAMIDE TAB* 250 MG PO SCH (22:00)
[2017-04-25] MEDS: Atorvastatin* 40 MG TAB PO SCH (22:00)
[2017-04-26] MEDS: NS 0.45% KCl 20 Meq 1000 ML* 1,000 ML IV SCH (00:44)
[2017-04-26] MEDS: Nystatin TOP POWDER* 15 GM BTL TOPICAL SCH ×4 (00:44→20:43)
[2017-04-26] MEDS: Heparin VIAL(*) 5000 UNITS/ML VIAL (FIVE THOUSAND) SUBCUT SCH ×3 (03:15→18:19)
[2017-04-26] MEDS: Omeprazole CAP* 20 MG PO SCH (06:07)
[2017-04-26 06:28] LABS: BUN/Creatinine Ratio 17.9 (8-20); Calcium 8.5 mg/dL (8.6-10.3); EGFR African American 32.2 (>60); Potassium 4.9 mmol/L (3.5-5.0)
[2017-04-26] MEDS: amLODIPine TAB* 5 MG PO SCH (09:11)
[2017-04-26] MEDS: Carvedilol TAB* 6.25 MG PO SCH ×2 (09:11→20:44)
[2017-04-26] MEDS: Aspirin EC Low Dose* 81 MG TAB.EC PO SCH (09:11)
[2017-04-26] MEDS: acetaZOLAMIDE TAB* 250 MG PO SCH ×2 (09:11→20:44)
[2017-04-26] MEDS: hydrALAZINE TAB* 10 MG PO SCH ×3 (09:11→20:43)
[2017-04-26] MEDS: Insulin LISPRO* 1 UNITS UNIT SUBCUT SCH ×3 (09:12→18:18)
[2017-04-26] MEDS: HYDROcodone/ACETAMIN 5-325 MG* 1 TAB PO PRN ×2 (09:12→16:43)
[2017-04-26] MEDS: Insulin GLARGINE(*) 1 UNITS UNIT SUBCUT SCH (13:35)
--- NOTE | 2017-04-26 16:59 | PN ---
Subjective Date of Service: 04/26/17 Interval History: Patient seen and examined at bedside. Patient appears comfortable. She denies chest pain, SOB, or abdominal pain. She did have some nausea while working with PT. She c/o of pain in her left foot. Per nursing she can bear weight without any difficulty but is very tender to touch. Sugars improved this AM. Family History: Unchanged from Admission Social History: Unchanged from Admission Past Medical History: Unchanged from Admission Objective Active Medications: Acetaminophen (Tylenol Tab*) 650 mg PO Q6H PRN Hydrocodone Bitart/Acetaminophen ([place] 5-325 Tab*) 1 tab PO Q6H PRN Acetazolamide (Diamox Tab*) 250 mg PO BID SCHmg Albuterol/Ipratropium (Duoneb (Albuterol 2.5 Mg/Ipratropium 0.5 Mg)) 1 neb INH Q4H PRN Amlodipine Besylate (Norvasc Tab*) 10 mg PO DAILY KIA Aspirin (Aspirin Ec Low Dose*) 81 mg PO DAILY KIA Atorvastatin Calcium (Lipitor*) 40 mg PO 2100 KIA Carvedilol (Coreg Tab*) 12.5 mg PO BID KIA Heparin Sodium (Porcine) (Heparin Vial(*)) 5,000 units SUBCUT Q8H KIA Hydralazine HCl (Apresoline Tab*) 15 mg PO TID KIA Insulin Glargine (Lantus(*)) 50 units SUBCUT Q24H KIA Insulin Human Lispro (Humalog*) 0 units SUBCUT AC KIA Lidocaine HCl (Xylocaine 2 % Jelly*) 0 ml TOPICAL TID PRN Nystatin (Nystatin Top Powder*) 1 applic TOPICAL TID KIA Omeprazole (Prilosec Cap*) 20 mg PO 0600 KIA Ondansetron HCl (Zofran Inj*) 4 mg IV Q6H PRN Vital Signs 04/26/17 04/26/17 04/26/17 11:20 14:06 14:07 Temperature 98.6 F Pulse Rate 60 60 Respiratory 16 Rate Blood Pressure 114/40 (mmHg) O2 Sat by Pulse 96 96 96 Oximetry Oxygen Devices in Use Now: Nasal Cannula - 2L Appearance: Sitting up in bed, NAD Eyes: No Scleral Icterus, PERRLA Ears/Nose/Mouth/Throat: NL Teeth, Lips, Gums Neck: NL Appearance and Movements; NL JVP Respiratory: Symmetrical Chest Expansion and Respiratory Effort, - - Decreased at bases Cardiovascular: NL Sounds; No Murmurs; No JVD Abdominal: NL Sounds; No Tenderness; No Distention Extremities: - - 1+ LE edema Skin: No Rash or Ulcers Neurological: Alert and Oriented x 3 Nutrition: Taking PO's Result Diagrams: 04/23/17 07:23 04/26/17 05:29 Microbiology and Other Data: Microbiology Diagnostic Imaging: Echo 04/15 - repeat for eval of LV fxn shows improvement to 55-60% CXR - mild PVC, no sig change from 04/15 CT chest - IMPRESSION: Large anterior mediastinal mass with retrosternal extension likely related to a goiter. Suggest follow-up sonography. Patchy nodular opacities in both mid upper lung moreno. Infectious and neoplastic etiologies are considerations. Cardiomegaly with pulmonary interstitial edema. Bibasilar consolidative changes likely compression atelectasis. Large bilateral pleural effusions US LE Doppler - IMPRESSION: No evidence for RIGHT or LEFT lower extremity DVT. Assess/Plan/Problems-Billing Assessment: Ms. Romero is a 72 yo female with DM, HTN, obesity and depression who was admitted with severe sepsis found to secondary to ESBL EColi complicated by ROSALINDA , acute HF and afib requiring a prolonged ICU stay, now transferred to the floor - Patient Problems (1) Metabolic alkalosis with respiratory acidosis Comment: Compensated. Bicarb elevated from contraction alkalosis from aggressive diuresis. ABG showed a compensated mixed respiratory acidosis and metabolic acidosis. Diamox started (x48hrs) yesterday with small amount of IVF ( w/ KCl). Lasix stopped. Bicarb has improved to 38 today. Continue for additional 24 hours but stop IVF for now. Patient's breathing at baseline, mentation good. Bipap not indicated. (2) Acute on chronic systolic heart failure Comment: O2 requirements down to 1L NC but patient appears dyspneic. Repeat echo shows full resolution (from prior EF 20-25%) with LVEF up to 55-60%. Lasix now on hold for contraction alkalosis. Continue daily weights and strict I +O's. Will consider restarting Lasix on alkalosis resolved. (3) ROSALINDA (acute kidney injury) Comment: Creatinine as high as 6 during this hospitalization and now plateaued at 1.7 now, avoid nephrotoxins. (4) Atrial fibrillation Comment: Paroxysmal during this hospitalization (x2) but now in NSR. Risks and benefits of anticoagulation have been reviewed with patient and family who would be interested in considering starting a NOAC but she remains anemic. - Iron stores normal, vit B 12 and folate normal. Stool guiac negative. Anemia maybe of chronic disease which has been worsened by acute illness. (5) Hypertension Comment: SBP 130-150s. Continue amlodipine, increased coreg, and hydralazine. Holding PILAR-I d/t recent severe ROSALINDA. (6) Diabetes Comment: Glucose 110-200's. Continue Lantus and lispro high dose scale. (7) Thyroid nodule Comment: Large anterior mediastinal mass with retrosternal extension likely related to a goiter. Suggest follow-up sonography outpatient. (8) DVT prophylaxis Comment: SQ Heparin (9) Full code status Status and Disposition: Inpatient. Plan for discharge to [facility] status if bed remains available when she is medically stable.
[2017-04-26] MEDS: Atorvastatin* 40 MG TAB PO SCH (20:43)
[2017-04-26] MEDS: Acetaminophen TAB* 325 MG PO PRN (20:45)
[2017-04-27] MEDS: Heparin VIAL(*) 5000 UNITS/ML VIAL (FIVE THOUSAND) SUBCUT SCH ×3 (02:02→18:34)
[2017-04-27] MEDS: Omeprazole CAP* 20 MG PO SCH (06:34)
[2017-04-27] MEDS: Aspirin EC Low Dose* 81 MG TAB.EC PO SCH (09:01)
[2017-04-27] MEDS: hydrALAZINE TAB* 10 MG PO SCH ×3 (09:01→21:19)
[2017-04-27] MEDS: amLODIPine TAB* 5 MG PO SCH (09:01)
[2017-04-27] MEDS: acetaZOLAMIDE TAB* 250 MG PO SCH (09:01)
[2017-04-27] MEDS: Carvedilol TAB* 6.25 MG PO SCH ×2 (09:01→21:19)
[2017-04-27] MEDS: Acetaminophen TAB* 325 MG PO PRN (09:15)
[2017-04-27] MEDS: Nystatin TOP POWDER* 15 GM BTL TOPICAL SCH ×3 (09:18→21:17)
[2017-04-27] MEDS: Insulin LISPRO* 1 UNITS UNIT SUBCUT SCH ×3 (09:22→18:35)
[2017-04-27 09:33] LABS: BUN/Creatinine Ratio 17.7 (8-20); Calcium 8.5 mg/dL (8.6-10.3); EGFR African American 31.8 (>60); EGFR Non-African American 24.7 (>60); Potassium 4.6 mmol/L (3.5-5.0)
[2017-04-27] MEDS ORDERED: Furosemide IV* 10 MG/ML 2 ML VIAL (20 MG) IV ONE (10:36)
--- NOTE | 2017-04-27 11:17 | RAD ---
HISTORY: Dyspnea COMPARISONS: April 24, 2017 VIEWS: 1: frontal portable view of the chest at 10:45 AM FINDINGS: LINES AND TUBES: None. CARDIOMEDIASTINAL SILHOUETTE: The cardiac silhouette is enlarged. The cardiomediastinal silhouette is otherwise normal for portable technique. PLEURA: The costophrenic angles are sharp. No pleural abnormalities are noted. LUNG PARENCHYMA: There is a diffuse reticular pattern with indistinct pulmonary vessels. ABDOMEN: The upper abdomen is clear. There is no subphrenic gas. BONES AND SOFT TISSUES: No bone or soft tissue abnormalities are noted. IMPRESSION: CARDIOMEGALY WITH PULMONARY INTERSTITIAL EDEMA
--- NOTE | 2017-04-27 12:21 | PN ---
Subjective Date of Service: 04/27/17 Interval History: Patient seen and examined at bedside. Patient seems more dyspneic today. She states her foot feels better but it is difficult for her to put weight on it. She reports a good appetite. Making slow progress with PT. Family History: Unchanged from Admission Social History: Unchanged from Admission Past Medical History: Unchanged from Admission Objective Active Medications: Acetaminophen (Tylenol Tab*) 650 mg PO Q6H PRN Hydrocodone Bitart/Acetaminophen ([place] 5-325 Tab*) 1 tab PO Q6H PRN Albuterol/Ipratropium (Duoneb (Albuterol 2.5 Mg/Ipratropium 0.5 Mg)) 1 neb INH Q4H PRN Amlodipine Besylate (Norvasc Tab*) 10 mg PO DAILY KIA Aspirin (Aspirin Ec Low Dose*) 81 mg PO DAILY KIA Atorvastatin Calcium (Lipitor*) 40 mg PO 2100 KIA Carvedilol (Coreg Tab*) 12.5 mg PO BID KIA Heparin Sodium (Porcine) (Heparin Vial(*)) 5,000 units SUBCUT Q8H KIA Hydralazine HCl (Apresoline Tab*) 15 mg PO TID KIA Insulin Glargine (Lantus(*)) 50 units SUBCUT Q24H KIA Insulin Human Lispro (Humalog*) 0 units SUBCUT AC KIA Lidocaine HCl (Xylocaine 2 % Jelly*) 0 ml TOPICAL TID PRN Nystatin (Nystatin Top Powder*) 1 applic TOPICAL TID KIA Omeprazole (Prilosec Cap*) 20 mg PO 0600 KIA Ondansetron HCl (Zofran Inj*) 4 mg IV Q6H PRN Vital Signs 04/26/17 04/26/17 04/26/17 14:06 14:07 16:05 Temperature 98.0 F Pulse Rate 60 66 Respiratory 16 18 Rate Blood Pressure 131/43 (mmHg) O2 Sat by Pulse 96 96 95 Oximetry 04/26/17 04/26/17 04/26/17 16:43 18:21 20:19 Temperature 98.4 F Pulse Rate 69 Respiratory 18 18 16 Rate Blood Pressure 131/44 (mmHg) O2 Sat by Pulse 96 Oximetry 04/26/17 04/26/17 04/27/17 21:00 23:23 03:57 Temperature 97.3 F 97.8 F Pulse Rate 58 63 Respiratory 18 18 18 Rate Blood Pressure 102/37 130/48 (mmHg) O2 Sat by Pulse 97 95 Oximetry 04/27/17 04/27/17 04/27/17 04:03 07:58 09:10 Temperature 98.1 F Pulse Rate 60 71 Respiratory 16 17 17 Rate Blood Pressure 144/49 (mmHg) O2 Sat by Pulse 97 94 Oximetry Oxygen Devices in Use Now: Nasal Cannula - 2L Appearance: sitting up in bed, labored breathing Eyes: No Scleral Icterus, PERRLA Ears/Nose/Mouth/Throat: NL Teeth, Lips, Gums Neck: NL Appearance and Movements; NL JVP Respiratory: Symmetrical Chest Expansion and Respiratory Effort, - - decreased at bases Cardiovascular: NL Sounds; No Murmurs; No JVD, RRR Abdominal: NL Sounds; No Tenderness; No Distention Extremities: No Edema Skin: No Rash or Ulcers Neurological: Alert and Oriented x 3 Lines/Tubes/Other Access: Clean, Dry and Intact Peripheral IV Nutrition: Taking PO's Result Diagrams: 04/23/17 07:23 04/27/17 08:47 Microbiology and Other Data: Microbiology Diagnostic Imaging: Echo 04/15 - repeat for eval of LV fxn shows improvement to 55-60% CXR - mild PVC, no sig change from 04/15 CT chest - IMPRESSION: Large anterior mediastinal mass with retrosternal extension likely related to a goiter. Suggest follow-up sonography. Patchy nodular opacities in both mid upper lung moreno. Infectious and neoplastic etiologies are considerations. Cardiomegaly with pulmonary interstitial edema. Bibasilar consolidative changes likely compression atelectasis. Large bilateral pleural effusions US LE Doppler - IMPRESSION: No evidence for RIGHT or LEFT lower extremity DVT. Assess/Plan/Problems-Billing Assessment: Ms. Romero is a 72 yo female with DM, HTN, obesity and depression who was admitted with severe sepsis found to secondary to ESBL EColi complicated by ROSALINDA , acute HF and afib requiring a prolonged ICU stay, now transferred to the floor - Patient Problems (1) Metabolic alkalosis with respiratory acidosis Comment: Compensated. Completed 2 days of diamox and bicarb has now normalized. Unfortunately her dypsnea has worsed and will have to gove Lasix. Will give small doses PRN to try and avoid further alkalosis. (2) Acute on chronic systolic heart failure Comment: Repeat CXR from today shows worsening pulmonary edema. Will give Lasix 20mg IV now and continue to trend weights (She was up 6lbs from yesterday) . O2 requirements still at 2L. Will wean as tolerated. Repeat echo shows full resolution (from prior EF 20-25%) with LVEF up to 55-60%. (3) ROSALINDA (acute kidney injury) Comment: Creatinine as high as 6 during this hospitalization and now plateaued at 1.9 now, avoid nephrotoxins. (4) Atrial fibrillation Comment: Paroxysmal during this hospitalization (x2) but now in NSR. Risks and benefits of anticoagulation have been reviewed with patient and family who would be interested in considering starting a NOAC but she remains anemic. - Iron stores normal, vit B 12 and folate normal. Stool guiac negative. Anemia maybe of chronic disease which has been worsened by acute illness. (5) Hypertension Comment: SBP 130-150s. Continue amlodipine, increased coreg, and hydralazine. Holding PILAR-I d/t recent severe ROSALINDA. (6) Diabetes Comment: Glucose 110-200's. Continue Lantus and lispro high dose scale. (7) Thyroid nodule Comment: Large anterior mediastinal mass with retrosternal extension likely related to a goiter. Suggest follow-up sonography outpatient. (8) DVT prophylaxis Comment: SQ Heparin (9) Full code status Status and Disposition: Inpatient. Plan for discharge to [facility] when breathing improved.
[2017-04-27] MEDS: Insulin GLARGINE(*) 1 UNITS UNIT SUBCUT SCH (14:13)
[2017-04-27] MEDS: Atorvastatin* 40 MG TAB PO SCH (21:19)
[2017-04-28] MEDS: Heparin VIAL(*) 5000 UNITS/ML VIAL (FIVE THOUSAND) SUBCUT SCH ×4 (02:58→22:17)
[2017-04-28] MEDS: Omeprazole CAP* 20 MG PO SCH (05:58)
[2017-04-28 07:01] LABS: Hematocrit 20 % (35-47); Hemoglobin 6.6 g/dl (12.0-16.0); Mean Corpuscular HGB Conc 33 g/dl (31-36); Mean Corpuscular Hemoglobin 31 pg (27-31); Mean Corpuscular Volume 96 fL (80-97); Mean Platelet Volume 9 um3 (7.4-10.4); Red Cell Distribution Width 16 % (10.5-15); White Blood Count 5.2 10^3/ul (3.5-10.8)
[2017-04-28 07:11] LABS: Comments Flag Yes
[2017-04-28 07:12] LABS: Add Diff/Slide Review? Slide Review Added
[2017-04-28 07:18] LABS: Calcium 8.2 mg/dL (8.6-10.3); EGFR African American 29.4 (>60); EGFR Non-African American 22.8 (>60); Potassium 4.4 mmol/L (3.5-5.0)
[2017-04-28] MEDS: Aspirin EC Low Dose* 81 MG TAB.EC PO SCH (09:26)
[2017-04-28] MEDS: Carvedilol TAB* 6.25 MG PO SCH ×2 (09:26→19:39)
[2017-04-28] MEDS: amLODIPine TAB* 5 MG PO SCH (09:26)
[2017-04-28] MEDS: Insulin LISPRO* 1 UNITS UNIT SUBCUT SCH ×3 (09:27→17:28)
[2017-04-28] MEDS: hydrALAZINE TAB* 10 MG PO SCH ×3 (09:27→19:39)
[2017-04-28 10:25] LABS: Hematocrit 21 % (35-47)
[2017-04-28 10:27] LABS: Comments Flag Yes
[2017-04-28 10:28] LABS: Hemoglobin 6.7 g/dl (12.0-16.0)
[2017-04-28 10:58] LABS: Immature Retic Fraction 0.63
[2017-04-28 11:10] LABS: Albumin 2.5 g/dL (3.2-5.2); Direct Bilirubin 0.2 mg/dL (0.03-0.18); Globulin 4.8 g/dL (2-4); Indirect Bilirubin 0.2 mg/dL (0.3-1.0); Total Bilirubin 0.4 mg/dL (0.2-1.0); Total Protein 7.3 g/dL (6.4-8.9)
[2017-04-28] MEDS: Nystatin TOP POWDER* 15 GM BTL TOPICAL SCH ×3 (11:15→19:38)
[2017-04-28] MEDS: Insulin GLARGINE(*) 1 UNITS UNIT SUBCUT SCH (13:49)
[2017-04-28 13:51] LABS: Corrected Retic Count 2.7 % (0.5-1.5)
--- NOTE | 2017-04-28 15:34 | PN ---
Subjective Date of Service: 04/28/17 Interval History: Patient seen this afternoon. Reports breathing is stable, improved from yesterday. Was up in the chair for a few hours today. No complaints presently. Family History: Unchanged from Admission Social History: Unchanged from Admission Past Medical History: Unchanged from Admission Objective Active Medications: Acetaminophen (Tylenol Tab*) 650 mg PO Q6H PRN Hydrocodone Bitart/Acetaminophen ([place] 5-325 Tab*) 1 tab PO Q6H PRN Albuterol/Ipratropium (Duoneb (Albuterol 2.5 Mg/Ipratropium 0.5 Mg)) 1 neb INH Q4H PRN Amlodipine Besylate (Norvasc Tab*) 10 mg PO DAILY KIA Aspirin (Aspirin Ec Low Dose*) 81 mg PO DAILY KIA Atorvastatin Calcium (Lipitor*) 40 mg PO 2100 KIA Carvedilol (Coreg Tab*) 12.5 mg PO BID KIA Dextrose (D50w Syringe 50 Ml*) 12.5 gm IV PUSH .FOR FS < 60 - SS PRN Heparin Sodium (Porcine) (Heparin Vial(*)) 5,000 units SUBCUT 0400,1200,2000 KIA Hydralazine HCl (Apresoline Tab*) 15 mg PO TID KIA Insulin Glargine (Lantus(*)) 50 units SUBCUT Q24H KIA Insulin Human Lispro (Humalog*) 0 units SUBCUT AC KIA Lidocaine HCl (Xylocaine 2 % Jelly*) 0 ml TOPICAL TID PRN Nystatin (Nystatin Top Powder*) 1 applic TOPICAL TID KIA Omeprazole (Prilosec Cap*) 20 mg PO 0600 KIA Ondansetron HCl (Zofran Inj*) 4 mg IV Q6H PRN Vital Signs 04/27/17 04/27/17 04/27/17 19:23 20:40 23:30 Temperature 98.5 F 98.1 F Pulse Rate 70 63 Respiratory 19 18 18 Rate Blood Pressure 141/52 114/40 (mmHg) O2 Sat by Pulse 95 93 Oximetry 04/28/17 04/28/17 04/28/17 03:35 03:47 07:49 Temperature 98.1 F 98.0 F Pulse Rate 61 60 68 Respiratory 16 16 17 Rate Blood Pressure 121/39 132/48 (mmHg) O2 Sat by Pulse 93 93 98 Oximetry 04/28/17 04/28/17 04/28/17 10:51 14:53 15:18 Temperature 98.5 F 98.0 F 98.0 F Pulse Rate 64 64 62 Respiratory 16 20 16 Rate Blood Pressure 116/43 116/43 121/44 (mmHg) O2 Sat by Pulse 95 98 98 Oximetry Oxygen Devices in Use Now: Nasal Cannula - 2L Appearance: Elderly, F, laying in bed in NAD Eyes: No Scleral Icterus Ears/Nose/Mouth/Throat: Mucous Membranes Moist Neck: NL Appearance and Movements; NL JVP Respiratory: Symmetrical Chest Expansion and Respiratory Effort, - - Diminished in bases, otherwise clear, no rales appreciated Cardiovascular: NL Sounds; No Murmurs; No JVD, RRR Abdominal: - - Obese, soft, NTND, BS+ Lymphatic: No Cervical Adenopathy Extremities: - - No LE edema Skin: No Rash or Ulcers Neurological: Alert and Oriented x 3 Result Diagrams: 04/28/17 10:15 04/28/17 06:44 Microbiology and Other Data: Microbiology Diagnostic Imaging: Echo 04/15 - repeat for eval of LV fxn shows improvement to 55-60% CXR - mild PVC, no sig change from 04/15 CT chest - IMPRESSION: Large anterior mediastinal mass with retrosternal extension likely related to a goiter. Suggest follow-up sonography. Patchy nodular opacities in both mid upper lung moreno. Infectious and neoplastic etiologies are considerations. Cardiomegaly with pulmonary interstitial edema. Bibasilar consolidative changes likely compression atelectasis. Large bilateral pleural effusions US LE Doppler - IMPRESSION: No evidence for RIGHT or LEFT lower extremity DVT. Assess/Plan/Problems-Billing Assessment: Ms. Romero is a 72 yo female with DM, HTN, obesity and depression who was admitted with severe sepsis found to secondary to ESBL EColi complicated by ROSALINDA , acute HF and afib requiring a prolonged ICU stay, anemia requiring blood transfusions now transferred to the floor - Patient Problems (1) Acute on chronic systolic heart failure Current Visit: Yes Comment: Good response to IV Lasix yesterday, with additional PRBC today will redose with IV Lasix. O2 requirements still at 2L. Will wean as tolerated. Repeat echo shows full resolution (from prior EF 20-25% ) with LVEF up to 55-60%. (2) ROSALINDA (acute kidney injury) Current Visit: Yes Comment: 2/2 sepsis, ATN. Creatinine as high as 6 during this hospitalization and now seems to have reached plateau, may be new baseline. Continue to avoid nephrotoxins. (3) Atrial fibrillation Current Visit: Yes Comment: Paroxysmal during this hospitalization (x2) but now in NSR. Risks and benefits of anticoagulation have been reviewed with patient and family who would be interested in considering starting a NOAC but she remains anemic. (4) Anemia Current Visit: Yes Comment: Normocytic. Hb low again today, will transfuse 1u PRBC. Iron stores normal, vit B 12 and folate normal. Stool guiac negative x2. Reticulocyte count elevated but corrected only 2.7%. May be BM issue. LDH normal , haptoglobin pending. Consider heme consult. (5) Hypertension Current Visit: No Comment: Continue amlodipine, coreg, and hydralazine. Holding PILAR-I d/t recent severe ROSALINDA. (6) Diabetes Current Visit: Yes Comment: Continue Lantus and lispro high dose scale. (7) Thyroid nodule Current Visit: No Comment: Large anterior mediastinal mass with retrosternal extension likely related to a goiter. Suggest follow-up sonography outpatient. Reportedly has had biopsies in the past. (8) DVT prophylaxis Current Visit: Yes Comment: SQ Heparin Status and Disposition: Inpatient. Plan for discharge to [facility] when stabilized
[2017-04-28] MEDS ORDERED: Furosemide IV* 10 MG/ML 2 ML VIAL (20 MG) IV ONE (16:00)
[2017-04-28] MEDS: Atorvastatin* 40 MG TAB PO SCH (19:39)
[2017-04-28] MEDS: HYDROcodone/ACETAMIN 5-325 MG* 1 TAB PO PRN (19:40)
[2017-04-29] MEDS: Heparin VIAL(*) 5000 UNITS/ML VIAL (FIVE THOUSAND) SUBCUT SCH ×3 (04:03→20:47)
[2017-04-29] MEDS: Omeprazole CAP* 20 MG PO SCH (06:13)
[2017-04-29 07:58] LABS: Hematocrit 24 % (35-47); Hemoglobin 7.6 g/dl (12.0-16.0); Mean Corpuscular HGB Conc 32 g/dl (31-36); Mean Corpuscular Hemoglobin 31 pg (27-31); Mean Corpuscular Volume 96 fL (80-97); Mean Platelet Volume 9 um3 (7.4-10.4); Red Blood Count 2.47 10^6/ul (4.0-5.4); Red Cell Distribution Width 16 % (10.5-15); White Blood Count 4.8 10^3/ul (3.5-10.8)
[2017-04-29 08:14] LABS: BUN/Creatinine Ratio 15.9 (8-20); Calcium 8.2 mg/dL (8.6-10.3); EGFR African American 27.3 (>60); EGFR Non-African American 21.2 (>60); Potassium 4.6 mmol/L (3.5-5.0)
[2017-04-29] MEDS: Insulin LISPRO* 1 UNITS UNIT SUBCUT SCH ×3 (08:35→17:12)
[2017-04-29] MEDS: Aspirin EC Low Dose* 81 MG TAB.EC PO SCH (08:41)
[2017-04-29] MEDS: Carvedilol TAB* 6.25 MG PO SCH ×2 (08:41→20:47)
[2017-04-29] MEDS: hydrALAZINE TAB* 10 MG PO SCH ×3 (08:42→20:47)
[2017-04-29] MEDS: Nystatin TOP POWDER* 15 GM BTL TOPICAL SCH ×3 (08:43→20:49)
[2017-04-29] MEDS: amLODIPine TAB* 5 MG PO SCH (09:47)
[2017-04-29] MEDS: Insulin GLARGINE(*) 1 UNITS UNIT SUBCUT SCH (12:05)
--- NOTE | 2017-04-29 14:04 | PN ---
Subjective Date of Service: 04/29/17 Interval History: Patient seen this afternoon. Reports feeling better today after blood transfusion. Says she feels more like herself. Breathing seems stable but still requires O2. Explained to patient my concern over her anemia and unclear etiology. Family History: Unchanged from Admission Social History: Unchanged from Admission Past Medical History: Unchanged from Admission Objective Active Medications: Acetaminophen (Tylenol Tab*) 650 mg PO Q6H PRN Hydrocodone Bitart/Acetaminophen ([place] 5-325 Tab*) 1 tab PO Q6H PRN Albuterol/Ipratropium (Duoneb (Albuterol 2.5 Mg/Ipratropium 0.5 Mg)) 1 neb INH Q4H PRN Amlodipine Besylate (Norvasc Tab*) 10 mg PO DAILY KIA Aspirin (Aspirin Ec Low Dose*) 81 mg PO DAILY KIA Atorvastatin Calcium (Lipitor*) 40 mg PO 2100 KIA Carvedilol (Coreg Tab*) 12.5 mg PO BID KIA Dextrose (D50w Syringe 50 Ml*) 12.5 gm IV PUSH .FOR FS < 60 - SS PRN Heparin Sodium (Porcine) (Heparin Vial(*)) 5,000 units SUBCUT 0400,1200,2000 KIA Hydralazine HCl (Apresoline Tab*) 15 mg PO TID KIA Insulin Glargine (Lantus(*)) 50 units SUBCUT Q24H KIA Insulin Human Lispro (Humalog*) 0 units SUBCUT AC KIA Lidocaine HCl (Xylocaine 2 % Jelly*) 0 ml TOPICAL TID PRN Nystatin (Nystatin Top Powder*) 1 applic TOPICAL TID KIA Omeprazole (Prilosec Cap*) 20 mg PO 0600 KIA Ondansetron HCl (Zofran Inj*) 4 mg IV Q6H PRN Vital Signs 04/28/17 04/28/17 04/28/17 14:53 15:18 15:29 Temperature 98.0 F 98.0 F Pulse Rate 64 62 Respiratory 20 16 Rate Blood Pressure 116/43 121/44 (mmHg) O2 Sat by Pulse 98 98 98 Oximetry 04/29/17 04/29/17 04/29/17 11:17 11:20 12:28 Temperature 98.2 F 98.2 F Pulse Rate 60 60 Respiratory 20 20 18 Rate Blood Pressure 115/43 115/43 (mmHg) O2 Sat by Pulse 93 93 Oximetry Oxygen Devices in Use Now: Nasal Cannula - 2L Appearance: Elderly, F, sitting in chair in NAD Eyes: No Scleral Icterus Ears/Nose/Mouth/Throat: Mucous Membranes Moist Neck: NL Appearance and Movements; NL JVP Respiratory: Symmetrical Chest Expansion and Respiratory Effort, - - Diminished in B/L bases Cardiovascular: NL Sounds; No Murmurs; No JVD, RRR Abdominal: NL Sounds; No Tenderness; No Distention Lymphatic: No Cervical Adenopathy Extremities: No Edema Skin: No Rash or Ulcers Neurological: Alert and Oriented x 3 Result Diagrams: 04/29/17 07:07 04/29/17 07:08 Microbiology and Other Data: Microbiology Diagnostic Imaging: Echo 04/15 - repeat for eval of LV fxn shows improvement to 55-60% CXR - mild PVC, no sig change from 04/15 CT chest - IMPRESSION: Large anterior mediastinal mass with retrosternal extension likely related to a goiter. Suggest follow-up sonography. Patchy nodular opacities in both mid upper lung moreno. Infectious and neoplastic etiologies are considerations. Cardiomegaly with pulmonary interstitial edema. Bibasilar consolidative changes likely compression atelectasis. Large bilateral pleural effusions US LE Doppler - IMPRESSION: No evidence for RIGHT or LEFT lower extremity DVT. Assess/Plan/Problems-Billing Assessment: Ms. Romero is a 72 yo female with DM, HTN, obesity and depression who was admitted with severe sepsis found to secondary to ESBL EColi complicated by ROSALINDA , acute HF and afib requiring a prolonged ICU stay, anemia requiring blood transfusions now transferred to the floor - Patient Problems (1) Acute on chronic systolic heart failure Current Visit: Yes Comment: Hold on additional Lasix today. O2 requirements still at 2L. Will wean as tolerated. Repeat echo shows full resolution (from prior EF 20-25%) with LVEF up to 55-60%. (2) ROSALINDA (acute kidney injury) Current Visit: Yes Comment: 2/2 sepsis, ATN. Creatinine as high as 6 during this hospitalization and now seems to have reached plateau, may be new baseline. Continue to avoid nephrotoxins. (3) Atrial fibrillation Current Visit: Yes Comment: Paroxysmal during this hospitalization (x2) but now in NSR. Risks and benefits of anticoagulation have been reviewed with patient and family who would be interested in considering starting a NOAC but she remains anemic. (4) Anemia Current Visit: Yes Comment: Normocytic. Adequate response to PRBC on 04/28. Spoke with Dr. Leyva who noted increased protein gap and recommended SPEP/ UPEP and skeletal survey. Can formally consult on Tuesday if abnormal and patient needs BMBx. Continue to monitor H/H (5) Hypertension Current Visit: No Comment: Continue amlodipine, coreg, and hydralazine. Holding PILAR-I d/t recent severe ROSALINDA. (6) Diabetes Current Visit: Yes Comment: Continue Lantus and lispro high dose scale. (7) Thyroid nodule Current Visit: No Comment: Large anterior mediastinal mass with retrosternal extension likely related to a goiter. Suggest follow-up sonography outpatient. Reportedly has had biopsies in the past. (8) DVT prophylaxis Current Visit: Yes Comment: SQ Heparin Status and Disposition: Inpatient. Plan for discharge to [facility] status when stabilized
[2017-04-29] MEDS: Atorvastatin* 40 MG TAB PO SCH (20:47)
[2017-04-29] MEDS: Acetaminophen TAB* 325 MG PO PRN (21:27)
[2017-04-30] MEDS: Heparin VIAL(*) 5000 UNITS/ML VIAL (FIVE THOUSAND) SUBCUT SCH ×3 (04:13→20:45)
[2017-04-30] MEDS: Omeprazole CAP* 20 MG PO SCH (05:17)
[2017-04-30 06:39] LABS: Hematocrit 23 % (35-47); Hemoglobin 7.7 g/dl (12.0-16.0); Mean Corpuscular HGB Conc 33 g/dl (31-36); Mean Corpuscular Hemoglobin 31 pg (27-31); Mean Corpuscular Volume 95 fL (80-97); Mean Platelet Volume 9 um3 (7.4-10.4); Red Blood Count 2.46 10^6/ul (4.0-5.4); Red Cell Distribution Width 16 % (10.5-15); White Blood Count 5.5 10^3/ul (3.5-10.8)
[2017-04-30 06:48] LABS: BUN/Creatinine Ratio 15.6 (8-20); Calcium 8.3 mg/dL (8.6-10.3); EGFR African American 28.4 (>60); EGFR Non-African American 22.1 (>60); Potassium 4.3 mmol/L (3.5-5.0)
[2017-04-30] MEDS: Acetaminophen TAB* 325 MG PO PRN ×2 (08:08→17:30)
[2017-04-30] MEDS: Insulin LISPRO* 1 UNITS UNIT SUBCUT SCH ×3 (08:11→17:30)
[2017-04-30] MEDS: amLODIPine TAB* 5 MG PO SCH (08:46)
[2017-04-30] MEDS: Aspirin EC Low Dose* 81 MG TAB.EC PO SCH (08:46)
[2017-04-30] MEDS: Carvedilol TAB* 6.25 MG PO SCH ×2 (08:46→20:46)
[2017-04-30] MEDS: hydrALAZINE TAB* 10 MG PO SCH ×3 (08:46→20:46)
[2017-04-30] MEDS: Nystatin TOP POWDER* 15 GM BTL TOPICAL SCH ×3 (09:30→20:46)
[2017-04-30] MEDS: Furosemide TAB* 40 MG PO SCH (11:30)
--- NOTE | 2017-04-30 13:50 | PN ---
Subjective Date of Service: 04/30/17 Interval History: Patient seen this morning. BGs low this AM which she says she was symptomatic from, better now. Reports she thinks breathing is slightly worse today. Family History: Unchanged from Admission Social History: Unchanged from Admission Past Medical History: Unchanged from Admission Objective Active Medications: Acetaminophen (Tylenol Tab*) 650 mg PO Q6H PRN Hydrocodone Bitart/Acetaminophen ([place] 5-325 Tab*) 1 tab PO Q6H PRN Albuterol/Ipratropium (Duoneb (Albuterol 2.5 Mg/Ipratropium 0.5 Mg)) 1 neb INH Q4H PRN Amlodipine Besylate (Norvasc Tab*) 10 mg PO DAILY KIA Aspirin (Aspirin Ec Low Dose*) 81 mg PO DAILY KIA Atorvastatin Calcium (Lipitor*) 40 mg PO 2100 KIA Carvedilol (Coreg Tab*) 12.5 mg PO BID KIA Dextrose (D50w Syringe 50 Ml*) 12.5 gm IV PUSH .FOR FS < 60 - SS PRN Furosemide (Lasix Tab*) 40 mg PO DAILY COUNT INCLUDES THE [facility] Heparin Sodium (Porcine) (Heparin Vial(*)) 5,000 units SUBCUT 0400,1200,2000 KIA Hydralazine HCl (Apresoline Tab*) 15 mg PO TID KIA Insulin Glargine (Lantus(*)) 40 units SUBCUT BEDTIME KIA Insulin Human Lispro (Humalog*) 0 units SUBCUT AC KIA Lidocaine HCl (Xylocaine 2 % Jelly*) 0 ml TOPICAL TID PRN Nystatin (Nystatin Top Powder*) 1 applic TOPICAL TID KIA Omeprazole (Prilosec Cap*) 20 mg PO 0600 KIA Ondansetron HCl (Zofran Inj*) 4 mg IV Q6H PRN Vital Signs 04/29/17 04/29/17 04/29/17 16:00 20:00 20:02 Temperature 98.1 F 99.3 F Pulse Rate 65 68 Respiratory 20 18 22 Rate Blood Pressure 127/48 123/41 (mmHg) O2 Sat by Pulse 100 98 Oximetry 04/30/17 04/30/17 04/30/17 00:00 00:16 03:59 Temperature 98.0 F 98.0 F Pulse Rate 63 63 Respiratory 16 18 Rate Blood Pressure 101/44 136/51 (mmHg) O2 Sat by Pulse 98 99 99 Oximetry 04/30/17 04/30/17 04/30/17 06:51 08:00 08:17 Temperature 98.3 F Pulse Rate 64 Respiratory 16 Rate Blood Pressure 139/48 (mmHg) O2 Sat by Pulse 97 96 96 Oximetry Oxygen Devices in Use Now: Nasal Cannula - 2L Appearance: Elderly, F, laying in bed in NAD Eyes: No Scleral Icterus Ears/Nose/Mouth/Throat: Mucous Membranes Moist Neck: NL Appearance and Movements; NL JVP Respiratory: Symmetrical Chest Expansion and Respiratory Effort, - - absent BS in B/L bases Cardiovascular: NL Sounds; No Murmurs; No JVD, RRR Abdominal: NL Sounds; No Tenderness; No Distention Lymphatic: No Cervical Adenopathy Extremities: No Edema Skin: No Rash or Ulcers Neurological: Alert and Oriented x 3 Result Diagrams: 04/30/17 05:59 04/30/17 05:59 Microbiology and Other Data: Microbiology Diagnostic Imaging: Echo 04/15 - repeat for eval of LV fxn shows improvement to 55-60% CXR - mild PVC, no sig change from 04/15 CT chest - IMPRESSION: Large anterior mediastinal mass with retrosternal extension likely related to a goiter. Suggest follow-up sonography. Patchy nodular opacities in both mid upper lung moreno. Infectious and neoplastic etiologies are considerations. Cardiomegaly with pulmonary interstitial edema. Bibasilar consolidative changes likely compression atelectasis. Large bilateral pleural effusions US LE Doppler - IMPRESSION: No evidence for RIGHT or LEFT lower extremity DVT. Assess/Plan/Problems-Billing Assessment: Ms. Romero is a 72 yo female with DM, HTN, obesity and depression who was admitted with severe sepsis found to secondary to ESBL EColi complicated by ROSALINDA , acute HF and afib requiring a prolonged ICU stay, anemia requiring blood transfusions now transferred to the floor - Patient Problems (1) Acute on chronic systolic heart failure Current Visit: Yes Comment: Resume Lasix 40 mg daily today. O2 requirements still at 2L. Will wean as tolerated. Repeat echo shows full resolution (from prior EF 20-25%) with LVEF up to 55-60%. (2) ROSALINDA (acute kidney injury) Current Visit: Yes Comment: 2/2 sepsis, ATN. Creatinine as high as 6 during this hospitalization and now seems to have reached plateau, may be new baseline. Continue to avoid nephrotoxins. (3) Atrial fibrillation Current Visit: Yes Comment: Paroxysmal during this hospitalization (x2) but now in NSR. Risks and benefits of anticoagulation have been reviewed with patient and family who would be interested in considering starting a NOAC but she remains anemic. (4) Anemia Current Visit: Yes Comment: Normocytic. Adequate response to PRBC on 04/28. Spoke with Dr. Leyva who noted increased protein gap and recommended SPEP/ UPEP and skeletal survey. Can formally consult on Tuesday if abnormal and patient needs BMBx. Continue to monitor H/H (5) Hypertension Current Visit: No Comment: Continue amlodipine, coreg, and hydralazine. Holding PILAR-I d/t recent severe ROSALINDA. (6) Diabetes Current Visit: Yes Comment: Will reduce Lantus to 40 units qhs. Continue lispro high dose sliding scale. (7) Thyroid nodule Current Visit: No Comment: Large anterior mediastinal mass with retrosternal extension likely related to a goiter. Suggest follow-up sonography outpatient. Reportedly has had biopsies in the past. (8) DVT prophylaxis Current Visit: Yes Comment: SQ Heparin Status and Disposition: Inpatient. Plan for discharge to [facility] when stabilized. Possibly Tuesday or Tuesday
[2017-04-30 16:07] LABS: Albumin 2.1 g/dL (3.4-4.7); Gamma Globulin 2.4 g/dL (0.6-1.6); Total Protein(PEP) 7.1 g/dL (6.3 - 7.9)
[2017-04-30] MEDS: Insulin GLARGINE(*) 1 UNITS UNIT SUBCUT SCH (20:45)
[2017-04-30] MEDS: Atorvastatin* 40 MG TAB PO SCH (20:46)
[2017-05-01] MEDS: Heparin VIAL(*) 5000 UNITS/ML VIAL (FIVE THOUSAND) SUBCUT SCH ×3 (05:31→19:37)
[2017-05-01] MEDS: Omeprazole CAP* 20 MG PO SCH (05:31)
[2017-05-01 05:57] LABS: Hematocrit 24 % (35-47); Hemoglobin 7.8 g/dl (12.0-16.0); Mean Corpuscular HGB Conc 33 g/dl (31-36); Mean Corpuscular Hemoglobin 32 pg (27-31); Mean Corpuscular Volume 96 fL (80-97); Mean Platelet Volume 9 um3 (7.4-10.4); Red Blood Count 2.47 10^6/ul (4.0-5.4); Red Cell Distribution Width 16 % (10.5-15); White Blood Count 4.6 10^3/ul (3.5-10.8)
[2017-05-01 06:09] LABS: BUN/Creatinine Ratio 15.3 (8-20); Calcium 8.5 mg/dL (8.6-10.3); EGFR African American 31.1 (>60); EGFR Non-African American 24.1 (>60); Potassium 4.5 mmol/L (3.5-5.0)
--- NOTE | 2017-05-01 07:22 | PN ---
Subjective Date of Service: 05/01/17 Interval History: Patient seen this morning. Feels breathing is stable, not too bothersome. Urinated quite a bit yesterday after PO Lasix. Understands plans for skeletal survey. Family History: Unchanged from Admission Social History: Unchanged from Admission Past Medical History: Unchanged from Admission Objective Active Medications: Acetaminophen (Tylenol Tab*) 650 mg PO Q6H PRN Hydrocodone Bitart/Acetaminophen ([place] 5-325 Tab*) 1 tab PO Q6H PRN Albuterol/Ipratropium (Duoneb (Albuterol 2.5 Mg/Ipratropium 0.5 Mg)) 1 neb INH Q4H PRN Amlodipine Besylate (Norvasc Tab*) 10 mg PO DAILY KIA Aspirin (Aspirin Ec Low Dose*) 81 mg PO DAILY KIA Atorvastatin Calcium (Lipitor*) 40 mg PO 2100 KIA Carvedilol (Coreg Tab*) 12.5 mg PO BID KIA Dextrose (D50w Syringe 50 Ml*) 12.5 gm IV PUSH .FOR FS < 60 - SS PRN Furosemide (Lasix Tab*) 40 mg PO DAILY KIA Heparin Sodium (Porcine) (Heparin Vial(*)) 5,000 units SUBCUT 0400,1200,2000 KIA Hydralazine HCl (Apresoline Tab*) 15 mg PO TID KIA Insulin Glargine (Lantus(*)) 40 units SUBCUT BEDTIME KIA Insulin Human Lispro (Humalog*) 0 units SUBCUT AC KIA Lidocaine HCl (Xylocaine 2 % Jelly*) 0 ml TOPICAL TID PRN Nystatin (Nystatin Top Powder*) 1 applic TOPICAL TID KIA Omeprazole (Prilosec Cap*) 20 mg PO 0600 KIA Ondansetron HCl (Zofran Inj*) 4 mg IV Q6H PRN Vital Signs 04/30/17 04/30/17 04/30/17 08:00 08:17 09:39 Temperature Pulse Rate Respiratory 16 Rate Blood Pressure (mmHg) O2 Sat by Pulse 96 96 Oximetry 05/01/17 04:05 Temperature 97.8 F Pulse Rate 63 Respiratory 18 Rate Blood Pressure 132/49 (mmHg) O2 Sat by Pulse 97 Oximetry Oxygen Devices in Use Now: Nasal Cannula - 2L Appearance: Elderly, F, sitting in chair in NAD Eyes: No Scleral Icterus Ears/Nose/Mouth/Throat: Mucous Membranes Moist Neck: NL Appearance and Movements; NL JVP Respiratory: Symmetrical Chest Expansion and Respiratory Effort, - - Rales in B/ L bases Cardiovascular: NL Sounds; No Murmurs; No JVD, RRR Abdominal: NL Sounds; No Tenderness; No Distention Lymphatic: No Cervical Adenopathy Extremities: No Edema Skin: No Rash or Ulcers Neurological: Alert and Oriented x 3 Result Diagrams: 05/01/17 05:45 05/01/17 05:45 Microbiology and Other Data: Microbiology Diagnostic Imaging: Echo 04/15 - repeat for eval of LV fxn shows improvement to 55-60% CXR - mild PVC, no sig change from 04/15 CT chest - IMPRESSION: Large anterior mediastinal mass with retrosternal extension likely related to a goiter. Suggest follow-up sonography. Patchy nodular opacities in both mid upper lung moreno. Infectious and neoplastic etiologies are considerations. Cardiomegaly with pulmonary interstitial edema. Bibasilar consolidative changes likely compression atelectasis. Large bilateral pleural effusions US LE Doppler - IMPRESSION: No evidence for RIGHT or LEFT lower extremity DVT. Assess/Plan/Problems-Billing Assessment: Ms. Romero is a 72 yo female with DM, HTN, obesity and depression who was admitted with severe sepsis found to secondary to ESBL EColi complicated by ROSALINDA , acute HF and afib requiring a prolonged ICU stay, anemia requiring blood transfusions now transferred to the floor - Patient Problems (1) Acute on chronic systolic heart failure Current Visit: Yes Comment: Continue Lasix 40 mg daily today (resumed on 04/30) . O2 requirements still at 2L. Will wean as tolerated. Repeat echo shows full resolution (from prior EF 20-25%) with LVEF up to 55-60%. (2) ROSALINDA (acute kidney injury) Current Visit: Yes Comment: 2/2 sepsis, ATN. Creatinine as high as 6 during this hospitalization and now seems to have reached plateau, may be new baseline. Continue to avoid nephrotoxins. (3) Atrial fibrillation Current Visit: Yes Comment: Paroxysmal during this hospitalization (x2) but now in NSR. Risks and benefits of anticoagulation have been reviewed with patient and family who would be interested in considering starting a NOAC but she remains anemic. (4) Anemia Current Visit: Yes Comment: Normocytic. Adequate response to PRBC on 04/28. Spoke with Dr. Leyva who noted increased protein gap and recommended SPEP/ UPEP and skeletal survey, all ordered. Can formally consult on Tuesday if abnormal and patient needs BMBx. Continue to monitor H/H (5) Hypertension Current Visit: No Comment: Continue amlodipine, coreg, and hydralazine. Holding PILAR-I d/t recent severe ROSALINDA. (6) Diabetes Current Visit: Yes Comment: No hypoglycemia this morning. Continue Lantus 40 units qhs. Continue lispro high dose sliding scale. (7) Thyroid nodule Current Visit: No Comment: Large anterior mediastinal mass with retrosternal extension likely related to a goiter. Suggest follow-up sonography outpatient. Reportedly has had biopsies in the past. (8) DVT prophylaxis Current Visit: Yes Comment: SQ Heparin Status and Disposition: Inpatient. Plan for discharge to [facility] when stabilized. Possibly Tuesday or Tuesday
[2017-05-01] MEDS: Insulin LISPRO* 1 UNITS UNIT SUBCUT SCH ×3 (08:03→17:45)
[2017-05-01] MEDS: Carvedilol TAB* 6.25 MG PO SCH ×2 (08:03→19:38)
[2017-05-01] MEDS: Aspirin EC Low Dose* 81 MG TAB.EC PO SCH (08:03)
[2017-05-01] MEDS: hydrALAZINE TAB* 10 MG PO SCH ×3 (08:03→19:36)
[2017-05-01] MEDS: Acetaminophen TAB* 325 MG PO PRN (08:03)
[2017-05-01] MEDS: Furosemide TAB* 40 MG PO SCH (08:03)
[2017-05-01] MEDS: amLODIPine TAB* 5 MG PO SCH (08:03)
[2017-05-01] MEDS: Nystatin TOP POWDER* 15 GM BTL TOPICAL SCH ×3 (09:35→20:04)
--- NOTE | 2017-05-01 10:34 | RAD ---
Indication: Multiple myeloma. Dual energy PA views of the chest demonstrates left basilar atelectasis with cardiomegaly. AP and lateral view of the cervical spine demonstrates degenerative disc disease at C5-C6, C6-C7 and C7-T1. Obvious lytic lesions are noted. 2 views of the skull demonstrates no definite lytic lesions. 2 views of the thoracic spine demonstrates no definite lytic lesions although multilevel degenerative disc disease is noted. Single view of the ribs demonstrates osteopenia. Old rib injuries of left fifth sixth and seventh ribs are noted likely due to healed fractures. A single view of the left and right humerus demonstrates no evidence of lytic lesions. A single view of each forearm demonstrates no definite lytic lesions. AP and lateral views of lumbar spine demonstrates degenerative disc disease at multiple levels without compression fracture. A single view the pelvis demonstrates pelvic ring to be intact. Patient is status post right hip replacement. Degenerative changes of the left hip are noted. Sacroiliac joints are intact. There appears to be healed fractures of left superior and inferior pubic ramus. A single view of each femur demonstrates no definite lytic lesions. A single view of each tibia and fibula demonstrates no evidence of lytic lesions. IMPRESSION: No obvious lytic lesions are noted. Evidence of old injuries of the left ribs as well as the left superior and inferior pubic rami. Patient is status post right hip replacement right knee replacement. The spine demonstrates multilevel degenerative disc disease.
[2017-05-01] MEDS: HYDROcodone/ACETAMIN 5-325 MG* 1 TAB PO PRN (13:14)
[2017-05-01] MEDS: Atorvastatin* 40 MG TAB PO SCH (19:38)
[2017-05-01] MEDS: Insulin GLARGINE(*) 1 UNITS UNIT SUBCUT SCH (20:04)
[2017-05-02] MEDS: Heparin VIAL(*) 5000 UNITS/ML VIAL (FIVE THOUSAND) SUBCUT SCH ×2 (04:52→12:58)
[2017-05-02] MEDS: Omeprazole CAP* 20 MG PO SCH (04:55)
--- NOTE | 2017-05-02 07:20 | PN ---
Subjective Date of Service: 05/02/17 Interval History: Ms. Romero states that she is feeling well this morning. She specifically denies chest pain, SOB, nausea, or abdominal pain. Family History: Unchanged from Admission Social History: Unchanged from Admission Past Medical History: Unchanged from Admission Objective Active Medications: Acetaminophen (Tylenol Tab*) 650 mg PO Q6H PRN Hydrocodone Bitart/Acetaminophen ([place] 5-325 Tab*) 1 tab PO Q6H PRN Albuterol/Ipratropium (Duoneb (Albuterol 2.5 Mg/Ipratropium 0.5 Mg)) 1 neb INH Q4H PRN Amlodipine Besylate (Norvasc Tab*) 10 mg PO DAILY KIA Aspirin (Aspirin Ec Low Dose*) 81 mg PO DAILY KIA Atorvastatin Calcium (Lipitor*) 40 mg PO 2100 KIA Carvedilol (Coreg Tab*) 12.5 mg PO BID KIA Dextrose (D50w Syringe 50 Ml*) 12.5 gm IV PUSH .FOR FS < 60 - SS PRN Furosemide (Lasix Tab*) 40 mg PO DAILY KIA Heparin Sodium (Porcine) (Heparin Vial(*)) 5,000 units SUBCUT 0400,1200,2000 KIA Hydralazine HCl (Apresoline Tab*) 15 mg PO TID KIA Insulin Glargine (Lantus(*)) 40 units SUBCUT BEDTIME KIA Insulin Human Lispro (Humalog*) 0 units SUBCUT AC KIA Lidocaine HCl (Xylocaine 2 % Jelly*) 0 ml TOPICAL TID PRN Nystatin (Nystatin Top Powder*) 1 applic TOPICAL TID KIA Omeprazole (Prilosec Cap*) 20 mg PO 0600 KIA Ondansetron HCl (Zofran Inj*) 4 mg IV Q6H PRN Vital Signs: Temp Pulse Resp BP Pulse Ox 97.8 F 64 18 148/58 98 05/02/17 07:53 05/02/17 07:53 05/02/17 07:53 05/02/17 07:53 05/02/17 07:53 Oxygen Devices in Use Now: Nasal Cannula - 2L Appearance: Female sitting up in bed in NAD Eyes: No Scleral Icterus Ears/Nose/Mouth/Throat: NL Teeth, Lips, Gums Neck: NL Appearance and Movements; NL JVP Respiratory: Symmetrical Chest Expansion and Respiratory Effort, Clear to Auscultation Cardiovascular: NL Sounds; No Murmurs; No JVD, No Edema Abdominal: NL Sounds; No Tenderness; No Distention Lymphatic: No Cervical Adenopathy Extremities: No Edema Skin: No Rash or Ulcers Neurological: Alert and Oriented x 3, NL Muscle Strength and Tone Nutrition: Taking PO's Result Diagrams: 05/01/17 05:45 05/01/17 05:45 Microbiology and Other Data: Microbiology Diagnostic Imaging: Echo 04/15 - repeat for eval of LV fxn shows improvement to 55-60% CXR - mild PVC, no sig change from 04/15 CT chest - IMPRESSION: Large anterior mediastinal mass with retrosternal extension likely related to a goiter. Suggest follow-up sonography. Patchy nodular opacities in both mid upper lung moreno. Infectious and neoplastic etiologies are considerations. Cardiomegaly with pulmonary interstitial edema. Bibasilar consolidative changes likely compression atelectasis. Large bilateral pleural effusions US LE Doppler - IMPRESSION: No evidence for RIGHT or LEFT lower extremity DVT. Assess/Plan/Problems-Billing Assessment: Ms. Romero is a 72 yo female with DM, HTN, obesity and depression who was admitted with severe sepsis found to secondary to ESBL EColi complicated by ROSALINDA , acute HF and afib requiring a prolonged ICU stay, anemia requiring blood transfusions now transferred to the floor - Patient Problems (1) Acute on chronic systolic heart failure Comment: - Plan to titrate lasix down to 20mg po daily. - O2 requirements still at 2L. Will wean as tolerated. Repeat echo shows full resolution (from prior EF 20-25%) with LVEF up to 55-60%. (2) Anemia Comment: - Normocytic. Adequate response to PRBC on 04/28. - GUIAC negative. SPEP/UPEP and skeletal survey, all negative. - Suspect anemia of chronic disease with iron deficiency, iron supplementation started. (3) ROSALINDA (acute kidney injury) Comment: 2/2 sepsis, ATN. Creatinine as high as 6 during this hospitalization and now seems to have reached plateau, may be new baseline. Continue to avoid nephrotoxins. (4) Atrial fibrillation Comment: Paroxysmal during this hospitalization (x2) but now in NSR. Risks and benefits of anticoagulation have been reviewed with patient and family who would be interested in considering starting a NOAC but she remains anemic. (5) Hypertension Comment: Continue amlodipine, coreg, and hydralazine. Holding PILAR-I d/t recent severe ROSALINDA. (6) Diabetes Comment: No hypoglycemia this morning. Continue Lantus 40 units qhs. Continue lispro high dose sliding scale. (7) Thyroid nodule Comment: Large anterior mediastinal mass with retrosternal extension likely related to a goiter. Suggest follow-up sonography outpatient. Reportedly has had biopsies in the past. (8) DVT prophylaxis Comment: SQ Heparin (9) Full code status Status and Disposition: Inpatient. Plan for discharge to [facility] when stabilized. Possibly Tuesday or Tuesday
[2017-05-02] MEDS: Insulin LISPRO* 1 UNITS UNIT SUBCUT SCH ×2 (08:11→12:58)
[2017-05-02] MEDS: Aspirin EC Low Dose* 81 MG TAB.EC PO SCH (08:11)
[2017-05-02] MEDS: Carvedilol TAB* 6.25 MG PO SCH (08:11)
[2017-05-02] MEDS: Furosemide TAB* 40 MG PO SCH (08:11)
[2017-05-02] MEDS: amLODIPine TAB* 5 MG PO SCH (08:11)
[2017-05-02] MEDS: hydrALAZINE TAB* 10 MG PO SCH ×2 (08:11→12:58)
[2017-05-02] MEDS: Nystatin TOP POWDER* 15 GM BTL TOPICAL SCH ×2 (08:19→15:08)
[2017-05-02] MEDS ORDERED: Ferrous Sulfate TAB* 325 MG PO SCH (09:00)
--- NOTE | 2017-05-02 11:45 | DS ---
CC: Dr. Bassam Jay* [facility] MEDICINE DISCHARGE SUMMARY: DATE OF ADMISSION: 04/05/17 DATE OF DISCHARGE: 05/02/17 PRIMARY CARE PHYSICIAN: Dr. Bassam Jay. ATTENDING PHYSICIAN: Dr. Liz Johnson* (dictation provided by Juanita Balbuena NP) . PRIMARY DIAGNOSES: 1. Sepsis secondary to urinary tract infection. 2. Acute congestive heart failure with EF 20% to 25% secondary to sepsis, now resolved with EF 50% 3. Anemia, secondary to chronic illness and iron deficiency. 4. Acute kidney failure. 5. Paroxysmal atrial fibrillation. 6. Acute hypoxic respiratory failure. SECONDARY DIAGNOSES: 1. Type 2 diabetes insulin dependent. 2. Hypertension. 3. Hyperlipidemia. 4. History of hip replacement in September of 2016. 5. History of knee replacement 20 years ago. MEDICATIONS: At the time of discharge: 1. Gemfibrozil 600 mg p.o. daily. 2. Omeprazole 20 mg p.o. daily. 3. Amlodipine 10 mg p.o. daily. 4. Nystatin powder topically t.i.d. 5. Lantus insulin 40 units subcutaneously at bedtime. 6. Hydrocodone with acetaminophen 1 tab p.o. q. 6 hours p.r.n. 7. Furosemide 20 mg p.o. daily. 8. Ferrous sulfate 325 mg p.o. daily. 9. Carvedilol 12.5 mg p.o. b.i.d. 10. Atorvastatin 40 mg daily. 11. Tylenol 650 p.o. q. 6 hours p.r.n. 12. Hydralazine 15 mg p.o. t.i.d. HOSPITAL COURSE: Ms. Romero is a 72-year-old female with a past medical history of diabetes, hypertension, and hyperlipidemia, who originally presented to our hospital on 04/05/17 and transferred from [facility] after being found on the floor and unable to getup. Please see the dictated H and H from MEHRDAD Alexander, for complete details. In brief, the patient reported that she had been weak and unwell for about 5 to 6 days. In the emergency room, she had urine which showed concern for infection with 3+ leukocyte esterase and 4+ bacteria. She had lactic acid 2.8, troponin of 0.626, anemia with a hemoglobin of 10.8, and blood glucose of 400. She also had acute kidney failure with a creatinine of 3.82. Chest x-ray showed concern for cephalization of pulmonary vasculature on review. The patient was admitted to the hospital out of concern for sepsis secondary to urinary tract infection as well as possible pneumonia. The patient was also noted to be in new onset atrial fibrillation. Ms. Romero was treated with Cipro and ceftriaxone out of concern for pneumonia and urinary tract infection. She was started on diltiazem drip for her atrial fibrillation. She had a transthoracic echocardiogram on 04/05/17, which was read as follows: "There is global hypokinesis of the left ventricle with minor regional variation. There is [id number] decreased left ventricular systolic function; the estimated ejection fraction is 25% to 30%." It was suspected that her depressed cardiac function was secondary to sepsis. She had a renal ultrasound on 04/05/17, that showed no hydronephrosis. She required transfer to intensive care unit for hypotension with a blood pressure running in the 70s for initiation IV fluid resuscitation and close monitoring. The patient was seen in consultation by Dr. Le and was also followed by Dr. Pittman from the [facility]. Blood cultures revealed ESBL E. coli in all 4 bottles as well as in her urine culture. She had a repeat transthoracic echocardiogram on 04/08/17, which showed resolution of her cardiomyopathy, now with an ejection fraction 50% to 55%. Her AFib resolved. Her acute kidney failure continued to worsen initially and her creatinine peaked at 6.02. She was seen in consultation by Dr. Tan from our nephrology team on 04/11/17. He suspected that it was a combination of prerenal state in the setting of sepsis and CHF along with meloxicam. She did not require dialysis during this admission and her creatinine improved to 2.02 at the time of discharge. The patient was able to be transferred from the ICU on 04/14/17. She had a repeat transthoracic echocardiogram on 04/15/17, which showed no significant changes with the previous echo from 04/10/17. She continued to have vascular congestion and diuresis was continued. Over the intervening days, Ms. Romero had intermittent elevations in her white blood cell count. She was seen in consultation by Dr. Ceron, who felt that there was no new infection and antibiotics have been discontinued after a prolonged course. She also had a concern for metabolic alkalosis with contraction alkalosis secondary to diuresis and chronic kidney disease, which was corrected. She is also had anemia since arrival. At this point, we suspect that secondary to chronic illness and iron deficiency. I will note that SPEP, UPEP, and a bone osteo survey was completed all of which were negative with no concern for monoclonal hyperglobulinemia. Ms. Romero is doing well today. She is currently on 2 L nasal cannula with O2 saturation of greater than 90% at rest. She is up and ambulating to her chair and to bedside commode. She continues to have need for physical therapy and therefore is being transitioned to [facility] for rehab after this prolonged hospitalization resulting in generalized debility. Ms. Romero is medically stable for discharge to [place]. I would recommend that her anemia be monitored Her hemoglobin has been stable. She has received 4 units of packed red blood cells during this hospitalization. I have started iron supplementation. I think that she would be a good candidate for a new anticoagulant for her history of paroxysmal atrial fibrillation x2 during the hospitalization, but I have decided against starting now due to her significant anemia with a hemoglobin of approximately 7. I think if she does respond well to iron supplementation and there is no further anemia, she should be started on that for stroke prevention. I also recommend that her fluid balance will be monitored closely. She has been on diuretics through this hospitalization. I have titrated her down now to 20 mg p.o. daily, but would recommend that this will be watched closely ( especially in the setting of her elevated creatinine) so that she is able to maintain euvolemia but does not become dehydrated. DISPOSITION: To [facility] status. DIET: Low fat, low salt consistent carbohydrate. ACTIVITY: As tolerated. FOLLOWUP PLANS: Please follow up with Dr. Jay per routine to monitor anemia, to monitor fluid status and for any other acute issue that arise. TIME SPENT: Approximately 60 minutes was spent in the discharge of this patient reviewing discharge plan with the patient, performing the physical examination and reviewing the plan of care. JUANITA BALBUENA NP [id number]/[facility] #: [id number] RUBI
[2017-05-02 12:38] VITALS: BP 130/49
[2017-05-03 15:55] LABS: Albumin 24 %; Gamma Globulin 18 %
== END 2017-05-02 14:30 | DRG 871 ==
LOC: ICU 12:29 → MEDTELE 04-13 10:52 → SSU 04-22 23:40 → MED 04-29 11:22
PROVIDERS: ADMIT Internal Medicine; ATTEND Hospitalist
PROC: 05H633Z Insertion of Infusion Device into Left Subclavian Vein, Percutaneous Approach (ICD-10-PCS; principal; 2017-04-05)
PROC: 30233N1 Transfusion of Nonautologous Red Blood Cells into Peripheral Vein, Percutaneous Approach (ICD-10-PCS; 2017-04-18)
DX: A41.51 Sepsis due to Escherichia coli [E. coli] (principal); J96.01 Acute respiratory failure with hypoxia; I21.4 Non-ST elevation (NSTEMI) myocardial infarction; N17.0 Acute kidney failure with tubular necrosis; I50.23 Acute on chronic systolic (congestive) heart failure; J18.9 Pneumonia, unspecified organism; E87.2 Acidosis; E87.4 Mixed disorder of acid-base balance; I42.9 Cardiomyopathy, unspecified; I13.0 Hypertensive heart and chronic kidney disease with heart failure and stage 1 through stage 4 chronic kidney disease, or unspecified chronic kidney disease; Z68.41 Body mass index [BMI] 40.0-44.9, adult; E11.22 Type 2 diabetes mellitus with diabetic chronic kidney disease; E11.40 Type 2 diabetes mellitus with diabetic neuropathy, unspecified; E11.65 Type 2 diabetes mellitus with hyperglycemia; E78.5 Hyperlipidemia, unspecified; M19.90 Unspecified osteoarthritis, unspecified site; I08.3 Combined rheumatic disorders of mitral, aortic and tricuspid valves; F32.9 Major depressive disorder, single episode, unspecified; E11.319 Type 2 diabetes mellitus with unspecified diabetic retinopathy without macular edema; E04.2 Nontoxic multinodular goiter; Z96.641 Presence of right artificial hip joint; Z96.653 Presence of artificial knee joint, bilateral; B96.20 Unspecified Escherichia coli [E. coli] as the cause of diseases classified elsewhere; K21.9 Gastro-esophageal reflux disease without esophagitis; D63.8 Anemia in other chronic diseases classified elsewhere; D50.9 Iron deficiency anemia, unspecified; N18.9 Chronic kidney disease, unspecified; T50.2X5A Adverse effect of carbonic-anhydrase inhibitors, benzothiadiazides and other diuretics, initial encounter; Y92.239 Unspecified place in hospital as the place of occurrence of the external cause; I48.0 Paroxysmal atrial fibrillation; E66.01 Morbid (severe) obesity due to excess calories; Z82.3 Family history of stroke; Z83.3 Family history of diabetes mellitus; Z79.4 Long term (current) use of insulin; Z98.51 Tubal ligation status; Z90.710 Acquired absence of both cervix and uterus; Z82.49 Family history of ischemic heart disease and other diseases of the circulatory system; R65.20 Severe sepsis without septic shock; I25.10 Atherosclerotic heart disease of native coronary artery without angina pectoris; N30.90 Cystitis, unspecified without hematuria
CPT/HCPCS: 36415; 36600; 71010; 71020; 71250; 76775; 77075; 80048; 80053; 80076; 81003; 81015; 82010; 82272; 82533; 82550; 82607; 82728; 82746; 82803; 82947; 83010; 83036; 83540; 83550; 83605; 83615; 83735; 84100; 84145; 84155; 84156; 84165; 84166; 84443; 84484; 85014; 85018; 85025; 85027; 85045; 85060; 85610; 85730; 86140; 86480; 86706; 86803; 86850; 86900; 86901; 86922; 87040; 87086; 87205; 87340; 87641; 87899; 93005; 93306; 93308; 93970; 94640; 94664; 94668; 94760; 97530; A9270-GY; C8929; J0282; J0456; J0692; J0696; J1160; J1265; J1644; J1650; J1940; J2405; J2543; J2997; J3370; J3475; J7060; P9040